=== PATIENT | female | born 1985 | race Caucasian/White ===

== ENCOUNTER → 2019-04-24 13:52 | Outpatient (CLI) | payer OTHER, SELFPAY ==
[2017-08-11 07:36] VITALS: BMI 30.4
[2019-04-27 15:37] LABS: HPV HC, High Risk Negative (Negative)
== END ==
PROVIDERS: Visit Provider Obstetrics & Gynecology
DX: Z12.4 Encounter for screening for malignant neoplasm of cervix (principal)
CPT/HCPCS: 87624; 88175; G0145

== ENCOUNTER → 2020-07-26 07:59 | Outpatient (CLI) | payer OTHER, SELFPAY ==
[2020-07-26 07:15] VITALS: BMI 26.6
[2020-07-26 12:22] LABS: Vitamin D,25 Hydroxy 35.8 ng/mL
[2020-07-26 12:30] LABS: Ferritin 4 ng/mL (8-252); Iron 41 ug/dL (50-170); Iron Binding Capacity,Total 428 ug/dL (250-450)
[2020-07-26 13:06] LABS: Thyroid Stim Hormone (TSH) 1.23 uIU/mL (0.358-3.74)
[2020-07-28 14:56] LABS: Transferrin 354 mg/dL (192-364)
== END ==
PROVIDERS: PCP Internal Medicine; Visit Provider Nurse Practitioner Family
DX: Z00.00 Encounter for general adult medical examination without abnormal findings (principal); D50.9 Iron deficiency anemia, unspecified; E56.9 Vitamin deficiency, unspecified; Z13.29 Encounter for screening for other suspected endocrine disorder
CPT/HCPCS: 36415; 82306; 82728; 83540; 83550; 84443; 84466

== ENCOUNTER 2020-09-26 09:27 | Outpatient (RCR) | payer OTHER, SELFPAY ==
[2020-07-26 07:15] VITALS: BMI 26.6
== END 2020-10-07 23:59 ==
LOC: EMPH 09:27
PROVIDERS: PCP Internal Medicine; Visit Provider Family Medicine Geriatric Medicine
DX: Z03.818 Encounter for observation for suspected exposure to other biological agents ruled out (principal)
CPT/HCPCS: 87426

== ENCOUNTER 2020-11-02 08:55 | Outpatient (RCR) | payer OTHER, SELFPAY ==
[2020-07-26 07:15] VITALS: BMI 26.6
== END 2020-11-07 23:59 ==
LOC: EMPH 08:55
PROVIDERS: PCP Internal Medicine; Referring Provider Family Medicine Geriatric Medicine; Visit Provider Family Medicine Geriatric Medicine
DX: Z03.818 Encounter for observation for suspected exposure to other biological agents ruled out (principal)

== ENCOUNTER 2020-12-17 08:29 | Outpatient (RCR) | payer OTHER, SELFPAY ==
[2020-07-26 07:15] VITALS: BMI 26.6
== END 2021-01-05 23:59 ==
LOC: EMPH 08:29
PROVIDERS: PCP Internal Medicine; Referring Provider Family Medicine Geriatric Medicine; Visit Provider Family Medicine Geriatric Medicine
DX: Z03.818 Encounter for observation for suspected exposure to other biological agents ruled out (principal)
CPT/HCPCS: 87426

== ENCOUNTER 2021-01-27 16:56 | Outpatient (RCR) | payer OTHER, SELFPAY ==
[2020-07-26 07:15] VITALS: BMI 26.6
== END 2021-02-05 23:59 ==
LOC: EMPH 16:56
PROVIDERS: PCP Internal Medicine; Referring Provider Family Medicine Geriatric Medicine; Visit Provider Family Medicine Geriatric Medicine
DX: Z03.818 Encounter for observation for suspected exposure to other biological agents ruled out (principal)
CPT/HCPCS: 87426

== ENCOUNTER 2021-06-27 12:59 | Outpatient (RCR) | payer OTHER, SELFPAY ==
[2020-07-26 07:15] VITALS: BMI 26.6
== END 2021-07-08 23:59 ==
LOC: EMPH 12:59
PROVIDERS: PCP Internal Medicine; Referring Provider Family Medicine Geriatric Medicine; Visit Provider Family Medicine Geriatric Medicine
DX: Z03.818 Encounter for observation for suspected exposure to other biological agents ruled out (principal)
CPT/HCPCS: 87426

== ENCOUNTER 2022-01-27 14:29 | Outpatient (CLI) | payer OTHER, SELFPAY ==
[2022-02-02 15:58] LABS: HPV APTIMA, High Risk Negative (Negative)
== END 2022-01-27 23:59 | disposition home or self-care (01) ==
LOC: LABSPEC 14:34
PROVIDERS: PCP Internal Medicine; Visit Provider Obstetrics & Gynecology
DX: Z12.4 Encounter for screening for malignant neoplasm of cervix (principal)
CPT/HCPCS: 87624; 88175; G0145

== ENCOUNTER → 2023-08-30 | Outpatient (CLI) | payer OTHER, SELFPAY ==
[2023-08-30 17:18] LABS: Ferritin 4 ng/mL (8-252); Iron 10 ug/dL (50-170); Iron Binding Capacity,Total 432 ug/dL (250-450)
[2023-09-01 18:07] LABS: Deamidated Gliadin IgA 9 units (0-19); Deamidated Gliadin IgG 3 units (0-19); Endomysial Antibody IgA Negative (Negative); Immunoglobulin A 272 mg/dL (87-352); t-Transglutaminase IgA <2 U/mL (0-3)
== END | disposition home or self-care (01) ==
PROVIDERS: PCP Internal Medicine; Referring Provider Internal Medicine; Visit Provider Internal Medicine
DX: D64.9 Anemia, unspecified (principal); R19.7 Diarrhea, unspecified
CPT/HCPCS: 36415; 82728; 82784; 83516; 83540; 83550; 86255

== ENCOUNTER → 2023-09-07 | Outpatient (CLI) | payer OTHER, SELFPAY | END | disposition home or self-care (01) | LOC: BIMLAB 12:18 | PROVIDERS: PCP Internal Medicine; Visit Provider Internal Medicine | DX: D64.9 Anemia, unspecified (principal) | CPT/HCPCS: 82274 ==

== ENCOUNTER → 2023-12-06 | Outpatient (CLI) | payer OTHER, SELFPAY ==
--- NOTE | 2023-12-06 08:59 | US_ITS ---
STUDY: ULTRASOUND BREAST - RIGHT REASON FOR EXAM: Female, 38 years old. Right breast pain. TECHNIQUE: Axial and longitudinal images of the RIGHT breast were performed with a high resolution ultrasound transducer. # OF IMAGES: 77 COMPARISON: Comparison is made with prior mammogram done earlier in the day. FINDINGS: RIGHT Breast: The lateral aspect of the right breast was examined with ultrasound. 4 benign-appearing lymph nodes are seen. The largest is in the axilla and measures 1.8 cm x 2.4 cm x 1.2 cm. This also evidence of a dilated retroareolar ducts. US/Breast Limited Unilateral IMPRESSION: Several lymph nodes are seen as described. Dilated retroareolar ducts. ASSESSMENT CATEGORY: BIRADS Category 2: Benign. A letter regarding these results will be sent to the patient by the facility within 30 days. Electronically Signed: Jordan Ellison MD at 11:18 EST ,
--- NOTE | 2023-12-06 08:59 | BI_ITS ---
MAMMOGRAPHY - BILATERAL DIAGNOSTIC REASON FOR EXAM: Female, 38 years old. Occasional upper outer quadrant breast pain. Prior resection of a fibroadenoma in the right breast. PERTINENT HISTORY: Personal history of breast cancer. TECHNIQUE: Digital bilateral breast lg (3D mammographic acquisition) in the CC and MLO projections. 2-D mediolateral oblique (MLO) and craniocaudad (CC) views of both breasts were obtained. CAD: Full Field Digital Mammography with Computer Added Detection was performed. COMPARISON: Comparison is made with prior study March 25, 2016. FINDINGS: Breast Composition: The breasts are heterogeneously dense, which may obscure small masses. The previously seen 1.8 cm well-defined nodule in the central lateral aspect of the right breast has been excised. I suspect a 1.5 cm fat-containing nodule at the operative site suggests a possible postoperative fat necrosis. No other significant abnormalities are identified. BI/DIAG MAMM W/CAD, BILAT IMPRESSION: Status post resection of the fibroadenoma in the right breast as described. Findings suggestive of a small fat-containing nodule at the operative site suggestive of possible fat necrosis. One year follow-up recommended. (A) ASSESSMENT CATEGORY: BIRADS Category 2: Benign. A letter regarding these results will be sent to the patient by the facility within 30 days. Approximately 10% of breast cancers are not detected by mammography. A normal mammogram should not delay biopsy of a clinically suspicious abnormality. Electronically Signed: Jordan Ellison MD at 11:15 EST ,
== END | disposition home or self-care (01) ==
LOC: OPBI 08:59
PROVIDERS: PCP Internal Medicine; Referring Provider Internal Medicine; Visit Provider Internal Medicine
DX: N64.4 Mastodynia (principal)
CPT/HCPCS: 76642; 77062; 77066; G0279

== ENCOUNTER → 2024-05-24 | Outpatient (CLI) | payer OTHER, SELFPAY ==
--- NOTE | 2024-05-24 15:34 | US_ITS ---
STUDY: ULTRASOUND OF THE FEMALE PELVIS - COMPLETE REASON FOR EXAM: Female, 38 years old. metorrhagia LMP: 05/20/2024 TECHNIQUE: Transabdominal and Transvaginal TECHNICAL QUALITY: Adequate. COMPARISON: None. FINDINGS: The uterus is anteverted and is in a midline position. The uterus measures 12.3 x 7.1 x 5.6 cm. 0.5 cm isoechoic mass within the anterior aspect of the cervix likely consistent with a submucosal fibroid. The endometrium measures 4 mm in thickness, and is hyperechoic. There is no demonstrated endometrial mass. 1 cm isoechoic mass of the anterior body the uterus consistent with an intramural fibroid. 3.5 cm round isoechoic mass of the inferior left side of the uterus consistent with a subserosal fibroid. I.U.D. - The patient does not have an I.U.D. The right ovary is visualized. The right ovary measures 3.0 x 2.1 x 2.0 cm. There is no right ovarian cyst or ovarian mass. There is no visualized right adnexal mass or complex lesion. There is normal arterial and normal venous vascularity. The left ovary is visualized. The left ovary measures 2.4 x 2.0 x 1.1 cm. There is no left ovarian cyst or ovarian mass. There is no visualized left adnexal mass or complex lesion. There is normal arterial and normal venous vascularity. There is no fluid in the cul-de-sac. The pre void volume of the bladder was 286 ml. The post void volume of the bladder was ml. Polycystic ovary disease: No. US/Pelvic w/ Transvaginal IMPRESSION: Enlarged fibroid uterus. Electronically Signed: Vasu Olivares MD at 17:33 EDT ,
== END | disposition home or self-care (01) ==
LOC: US 15:34
PROVIDERS: PCP Internal Medicine; Referring Provider Nurse Practitioner Family; Visit Provider Nurse Practitioner Family
DX: N92.1 Excessive and frequent menstruation with irregular cycle (principal)
CPT/HCPCS: 76830; 76856

== ENCOUNTER → 2024-06-06 | Outpatient (CLI) | payer OTHER, SELFPAY ==
[2024-06-06 10:43] LABS: Absolute Lymphocyte Count 1.31 X10^3/uL (0.83-4.51); Absolute Neutrophil Count 6.1 X10^3/uL (2.0-7.7); Basophil# 0.06 X10^3/uL; Basophil% 0.7 % (0-1); Eosinophil# 0.28 X10^3/uL; Eosinophils% 3.2 % (0-5); Hematocrit 35.8 % (37-47); Hemoglobin 10.8 g/dL (12.0-15.0); Lymphocyte # 1.31 X10^3/ul (0.83-4.51); Lymphocyte % 15.1 % (19-41); Mean Corp Hgb Conc 30.2 g/dL (32-36); Mean Corpuscular Hgb 22.7 pg (27.0-32.0); Mean Corpuscular Volume 75.4 fL (81-99); Mean Platelet Vol. 10.9 fl (6.2-12.0); Monocyte# 0.76 X10^3/uL; Monocyte% 8.8 % (0-10); NRBC Flagged by Analyzer 0 % (0-5); Neutrophil # 6.11 X10^3/uL (2.7-7.7); Neutrophil % 70.6 % (47-70); Platelet Count 343 K/mm3 (150-450); RBC Distribution Width CV 17.2 % (11.6-14.6); RBC Distribution Width SD 46.4 fl (35.1-43.9); Red Blood Count 4.75 M/mm3 (4.2-5.4); White Blood Count 8.7 K/mm3 (4.4-11.0)
[2024-06-06 10:50] LABS: Erythrocyte Sedimentation Rate 8 mm/hr (0-30)
[2024-06-06 11:09] LABS: Vitamin B12 505 pg/mL (211-911)
[2024-06-06 11:14] LABS: AST(SGOT) 12 U/L (15-37); Alanine Aminotransfer ALT/SGPT 15 U/L (13-56); Alkaline Phosphatase 46 U/L (45-117); Anion Gap 7 (5-15); BUN 8 mg/dL (7-18); BUN/Creat Ratio 12.5 RATIO (10-20); Calcium,Total 8.7 mg/dL (8.5-10.1); Chloride 105 mmol/L (98-107); Cholesterol 153 mg/dL (200); Creatinine, Serum 0.64 mg/dL (0.55-1.02); EST Glomerular Filtration Rate 111 mL/min (>60); Est Glom Filt Rate - Afr Amer 134 mL/min (>60); Globulin 3.9 g/dL (2.2-4.2); Glucose 85 mg/dL (74-106); High Density Lipoprotein 48 mg/dL; Potassium 3.6 mmol/L (3.5-5.1); Protein, Total 7.9 g/dL (6.4-8.2); Sodium Level 137 mmol/L (136-145); T4 Free Direct 0.88 ng/dL (0.76-1.46); Triglycerides 67 mg/dL; Very Low Density Lipoprotein 13 mg/dL (5-40)
[2024-06-06 12:02] LABS: CRP < 2.90 mg/L (0.0-3.0); Ferritin 4 ng/mL (8-252); Iron 22 ug/dL (50-170); Iron Binding Capacity,Total 425 ug/dL (250-450)
[2024-06-07 17:07] LABS: Endomysial Antibody IgA Negative (Negative); Immunoglobulin A 261 mg/dL (87-352); t-Transglutaminase IgA <2 U/mL (0-3)
[2024-06-10 11:09] LABS: Beef <0.10 kU/L (Class 0); Chocolate <0.10 kU/L (Class 0); Codfish <0.10 kU/L (Class 0); Corn <0.10 kU/L (Class 0); Egg, Whole <0.10 kU/L (Class 0); Milk (Cow) <0.10 kU/L (Class 0); Mussels <0.10 kU/L (Class 0); Peanut <0.10 kU/L (Class 0); Pork <0.10 kU/L (Class 0); Salmon <0.10 kU/L (Class 0); Shrimp <0.10 kU/L (Class 0); Soybean <0.10 kU/L (Class 0); Tuna <0.10 kU/L (Class 0); Wheat <0.10 kU/L (Class 0)
== END | disposition home or self-care (01) ==
LOC: LAB 09:09
PROVIDERS: Nurse Practitioner Family; PCP Internal Medicine; Referring Provider Student in an Organized Health Care Education/Training Program; Visit Provider Student in an Organized Health Care Education/Training Program
DX: Z00.00 Encounter for general adult medical examination without abnormal findings (principal); Z13.220 Encounter for screening for lipoid disorders; Z13.29 Encounter for screening for other suspected endocrine disorder; D50.9 Iron deficiency anemia, unspecified; N92.1 Excessive and frequent menstruation with irregular cycle
CPT/HCPCS: 36415; 80053; 80061; 82306; 82607; 82728; 82746; 82784; 83516; 83540; 83550; 84439; 84443; 85025; 85652; 86003; 86005; 86140; 86255

== ENCOUNTER 2024-06-30 05:58 | Day surgery (SDC) | payer OTHER, SELFPAY ==
[2024-06-30] VITALS (8 sets, daily range): BP systolic 86–118; BP diastolic 58–73; PULSE 66–75; RESP 16; TEMP 36.6–37.1; O2SAT 99–100; BMI 28.0
[2024-06-30 06:20] LABS: Internal QC Validated? YES +Cl - CLEAR BKGD; Pregnancy, Urine Negative Negative
[2024-06-30] MEDS: Lactated Ringers 1,000 ML 15 ML IV (06:28)
--- NOTE | 2024-06-30 06:42 | PCM.HP.BLA ---
History and Physical Date of Admission: 06/30/24 Chief Complaint: Anemia Details: MINDY SCOTT, is a 38 F who presents to the office today for establishment with [facility]. She has a long history of having iron deficient anemia. 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 Her 62 yo mother was recently diagnosed with colon cancer and underwent partial colectomy and chemotherapy. She is concerned about developing colon cancer with her family history. She mentions she has always had right lower quadrant pain and feeling of incomplete evacuation with bowel movements. She has a bm at least once a day but feels it is incomplete. She has also noticed having some urgency after eating certain foods like sauce or foods with tomatoes. She has never been tested for food allergies. She has alot of gas that she will massage out her abdomen to relive. She feels fatigued and has brain fog. She denies alarm symptoms like weight loss, fever, or blood in her stool. She denies diarrhea, heartburn, and n/v. ROS Const Constitutional: Positive for fatigue and weight change; No fever(s) ENT ENT: No difficulty swallowing Gastro GI: Positive for abdominal pain, bloating, heartburn and excessive flatus; No belching, change in bowel habits, change in stool character, coffee ground emesis, constipation, cramping, diarrhea, difficulty swallowing, feeling full early, incontinent of stools, Vomiting blood/hematemesis, Blood in stool, loose stools, Black,tarry stools, nausea/dyspepsia, pain with swallowing, vomiting or other Musc Musculoskeletal: No joint pain Skin Skin: No yellowing of the eye or itchy eyes Psych Psychiatric: No anxiety and No depression Endo Endocrine: Positive for fatigue and weight change Aller/Imm Allergy/Immunologic: No itchy eyes Teja/Lymp Hematologic/Lymphatic: No easy bleeding or easy bruising Exam Const General: cooperative and comfortable Nutritional Appearance: average body habitus and well nourished HENKS Head: normal to inspection Ears: hearing grossly normal bilaterally Nose: external nose normal Face and sinus: normal facial exam Mouth: oral mucosae normal Throat: posterior oropharynx normal Eyes General: appearance normal, both eyes and all related structures Neck Neck: normal visual inspection Chest Chest palpation & inspection: normal inspection of the chest and normal palpation of entire chest wall Resp Effort & Inspection: normal respiratory effort Auscultation: Bilateral: Clear to Auscultation Cardio Palpation: normal PMI Rate: regular rate Rhythm: regular rhythm GI Inspection: normal to inspection Auscultation: normal bowel sounds Percussion: normal to percussion Palpation: no hepatosplenomegaly Skin General: no rashes or lesions noted Neuro General: patient alert Extrem General: normal to inspection Psych Affect: normal affect Assessment and Plan Assessment and Plan (1) Anemia: Status: Chronic Qualifiers: Anemia type: iron deficiency Iron deficiency anemia type: unspecified iron deficiency Qualified Code(s): D50.9 - Iron deficiency anemia, unspecified Plan: Patient is here today for establishment with [facility]. She has a hx of anemia, abdominal pain, and family hx of colon cancer -Because of family history of colon cancer she wishes to have a colonoscopy. We will schedule her for this. -Ordered iron studies to assess for anemia -Ordered labs for food allergens, celiac, and inflammatory markers -Recommended increasing daily fiber with supplement to help with incomplete stool evacuation -Recommended simethicone for episodes of gas Orders: Orders Ferritin Today D50.9 - Iron deficiency anemia, unspecified Iron Binding Capacity,Total Today D50.9 - Iron deficiency anemia, unspecified Iron Today D50.9 - Iron deficiency anemia, unspecified Celiac Disease Profile Today D50.9 - Iron deficiency anemia, unspecified CRP Today D50.9 - Iron deficiency anemia, unspecified Erythrocyte Sed Rate Today D50.9 - Iron deficiency anemia, unspecified Allergen, Food Profile 14 Today D50.9 - Iron deficiency anemia, unspecified Folates, (Folic Acid) Today D50.9 - Iron deficiency anemia, unspecified Vitamin B12 Today D50.9 - Iron deficiency anemia, unspecified Coding Level of Care Code New Pt Off vis,new,level 2 Patient Type New History Expanded Problem Focused Exam Expanded Problem Focused Medical Decision Making Straight Forward Diagnoses Iron deficiency anemia, unspecified iron deficiency anemia type D50.9 Anemia type: iron deficiency Iron deficiency anemia type: unspecified iron deficiency I have examined the patient and the H&P has been reviewed. There are no clinical changes since date of exam.
--- NOTE | 2024-06-30 06:47 | PCM.PRE.AN2 ---
ASA Classification* ASA Classification ASA Classification: 2 Assessment & Plan Anesthesia* Anesthesia Assessment Anesthesia Assessment: Discussed sedation and/or anesthesia options, risks, benefits, and alternatives with patient/parents/legal guardian/POA. Questions invited. The patient/parents/legal guardian/POA seems to understand and agrees to proceed with anesthesia plan. Reviewed the physical assessment, medical history, allergy history and patient home medications list prior to surgery/procedure/anesthetic and documented any changes. Performed airway and anesthesia risk assessments. Anesthesia Type Anesthesia Type: MAC History Source History Obtained from:: Patient and Chart Anesthesia Focused Assessment* Temperature: 98.8 F Pulse Rate: 73 Blood Pressure: 112/68 Respiratory Rate: 16 Pulse Ox: 100 Airway Assessment Mouth opens: >3 cm Mallampati Score: II Teeth Condition: Intact Neck Range of motion (ROM): Full ROM Focused Labs Anesthesia Preop lab: CBC WBC 8.7 K/mm3 (4.4-11.0) 06/06/24 09:13 RBC 4.75 M/mm3 (4.2-5.4) 06/06/24 09:13 Hgb 10.8 g/dL (12.0-15.0) L 06/06/24 09:13 Hct 35.8 % (37-47) L 06/06/24 09:13 Plt Count 343 K/mm3 (150-450) 06/06/24 09:13 CHEMISTRY Potassium 3.6 mmol/L (3.5-5.1) 06/06/24 09:13 Sodium 137 mmol/L (136-145) 06/06/24 09:13 Phosphorus 3.5 mg/dL (2.5-4.9) 06/24/21 15:19 BUN 8 mg/dL (7-18) 06/06/24 09:13 Creatinine 0.64 mg/dL (0.55-1.02) 06/06/24 09:13 Glucose 85 mg/dL (74-106) 06/06/24 09:13 TSH 1.80 uIU/mL (0.358-3.74) 06/06/24 09:13 COAG Urine Test Negative Negative 06/30/24 06:05 Pre-Assessment Diagnosis/Proposed Procedure Planned Operative Procedure(s): COLONOSCOPY- Anesthesia History Anesthesia History - acute care surgeon: Anesthesia History - acute care surgeon Hx Hospitalization No 06/28/24 08:29 Any Problems With Anesthesia No 06/28/24 08:29 Cholinesterase deficiency No 06/28/24 08:29 You/Your Family Experience No 06/28/24 08:29 fever (hyperthermia) with Relationship Recent Exposure to Contagious No 06/30/24 06:22 Disease Does patient have nerve No 06/28/24 08:29 stimulator Patient instructed to have device shut off --Does patient have Pacemaker No 06/30/24 06:22 or ICD? When Was Last Pacemaker Check QUESTION #4 FULL TEXT: You/Your Family Experience fever (hyperthermia) with Anesthesia Last Oral Intake Last Oral intake: Last Oral Intake NPO since 03:00 06/30/24 06:22 Meds taken in AM with sips of No 06/30/24 06:22 water? Meds patient instructed to take am of surgery PONV PONV - acute care surgeon: PONV - acute care surgeon Female Yes 06/28/24 08:29 HX of Motion Sickness No 06/28/24 08:29 HX of N/V After Surgery No 06/28/24 08:29 Non-Smoker Yes 06/28/24 08:29 Duration of Surgery greater No 06/28/24 08:29 than 60 minutes Number of Risk Factors 2 06/28/24 08:29 PONV Score Moderate Risk 06/28/24 08:29 Height & Weight Height & Weight: Anesthesia: Height & Weight Height 5 ft 4 in 06/30/24 06:22 Weight: 74 kg 06/30/24 06:22 Body Mass Index (BMI) 28.0 06/30/24 06:22 Respiratory Assessment Respiratory Assessment - acute care surgeon: Respiratory Tract Infection Hx - acute care surgeon Hx Respiratory Tract Infection No 06/28/24 08:29 STOP Sleep Apnea STOP Sleep Apnea - acute care surgeon: STOP Sleep Apnea - acute care surgeon Hx Hypertension No 06/28/24 08:29 Hx Sleep Apnea No 06/28/24 08:29 CPAP BIPAP Do you snore loudly (louder No 06/28/24 08:29 than talking or can be heard Do you often feel tired/ No 06/28/24 08:29 fatigued/ sleepy during daytime? Has anyone observed you stop No 06/28/24 08:29 breathing during sleep? STOP Results Negative 06/28/24 08:29 QUESTION #5 FULL TEXT : Do you snore loudly (louder than talking or can be heard through closed doors)? 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 Specify any problems Hx of Preganancy in last 3 No 06/28/24 08:29 Months Nurse Filling Out Transfusion VCHRISTIN 06/28/24 08:29 & Questions: Date: 06/28/24 06/28/24 08:29 Time: 08:30 06/28/24 08:29 Patient unable to answer at this time (ie. confused, unrespo /Reproduction History /Reproductive History - acute care surgeon: /Reproductive Hx- acute care surgeon Hx Now No 06/28/24 08:29 Gestational Age (in weeks): EDC: Hx Hx Para Hx Section SAB No 06/28/24 08:29 Active Medications Active Medications: Current Medications Generic Name Dose Route Start Last Admin Trade Name Freq PRN Reason Stop Dose Admin Lactated Ringer's 1,000 mls @ 15 mls/hr 06/30/24 06:15 06/30/24 06:28 IV 15 mls/hr .Q48H SAYDA Administration PFSH Medical History Wears contact lenses Wears glasses Alcohol use Arthritis Non-smoker Health care maintenance Breast pain, right Diarrhea Anemia Breast lump Home Medications ?Medication ?Instructions ?Recorded ?Last Taken ?Type multivitamin 1 tab PO DAILY 06/24/21 06/25/24 History ferrous sulfate 325 mg (65 mg 325 mg PO DAILY #30 tabs 06/08/24 06/26/24 Rx iron) tablet (FeroSul) Allergy/AdvReac Type Severity Reaction Status Date / Time venom-honey bee Allergy Intermediate Swelling Verified 06/28/24 08:23 Family History Mother Anemia Colon cancer Grandmother Hypertension Anemia Grandfather Parkinsons disease Surgical History History of lumpectomy Social History number of children: 3 current occupational status: employed current occupation: [employer] Smoking Status: Never smoker alcohol intake: current alcohol intake frequency: a few times a week substance use type: does not use what type of physical activity do you participate in: walking frequency: daily seatbelt use: always do you feel safe at home: Yes Review of Systems (Anesthesia) ROS Narrative System reviewed and no additional complaints, except as documented.
--- NOTE | 2024-06-30 07:00 | COLBX_PTH ---
PATIENT: MINDY SCOTT LOC: EN U#:[id number] AGE/SX: 38/F ROOM: RE06/30/[address]: Dr. Jordan Painting DO : 1985 BED: DIS: 06/30/2024 SPEC #: [id number] RECD: 06/30/24 08:47 STATUS: YU REILLY #: [id number] TRAE: 06/30/24 07:[address]: Jordan Painting DEPT: SURGICAL PATHOLOGY RECD BY: Maulik Dash ENTERED: 06/30/24 09:31 SP TYPE: COLON BX JERE DR: Dr. Óscar Mobley MD Tissues: A - Ascending colon B - COLON BIOPSY C - Sigmoid colon biopsy Procedures: Surgery Specimen Level IV HEADER OPERATION: Colonoscopy, polypectomy PRE-OP DIAGNOSIS: Anemia TISSUE SUBMITTED: A- Ascending colon polyp, B- Appendicle orifice polyp, C- Sigmoid colon polyp MICROSCOPIC DIAGNOSIS A. Ascending colon polyp, biopsy: Fragments of hyperplastic polyp. See comment. B. Polyp at appendiceal orifice, biopsy: Fragments of hyperplastic polyp. C. Sigmoid colon polyp, biopsy: Inflammatory polyp with mucosal denudation. KALINA/ 07/03/2024 COMMENT A. The specimen contains fragments of mature adipose tissue with benign perilymphoid tissue. Clinical correlation is suggested. MICROSCOPIC DESCRIPTION Slides are reviewed. GROSS DESCRIPTION A. Received in fixative is one container labeled with the patient's name and designated Ascending colon polyp. The specimen consists of multiple irregular fragments of light bush soft tissue that in aggregate measure 2.0 x 0.7 x 0.2 cm. The specimen is totally submitted in one cassette. B. Received in fixative is one container labeled with the patient's name and designated Appendicle orifice polyp. The specimen consists of multiple irregular fragments of light bush soft tissue that in aggregate measure 1.0 x 0.2 x 0.1 cm. The specimen is totally submitted in one cassette. C. Received in fixative is one container labeled with the patient's name and designated Sigmoid colon polyp. The specimen consists of a bush-pink polyp measuring 0.4 x 0.4 x 0.2cm. The entire specimen is submitted in one cassette. 06/30/2024 TC:5 CPT:29271m4
--- NOTE | 2024-06-30 07:32 | OP.COLON_ITS ---
Patient Name: Campbell Cerda Procedure Date: 06/30/2024 6:50 AM Date of : 1985 Age: 38 Procedure: Colonoscopy Indications: Screening in patient at increased risk: Family history of 1st-degree relative with colorectal cancer before age 60 years Providers: Jordan Painting DO Medicines: Monitored Anesthesia Care Patient Profile: This is a 38 year old female. Refer to note in patient chart for documentation of history and physical. Last Colonoscopy: none. The patient's first colonoscopy is today. Complications: No immediate complications. Procedure: Pre-Anesthesia Assessment: - Prior to the procedure, a History and Physical was performed, and patient medications and allergies were reviewed. The patient is competent. The risks and benefits of the procedure and the sedation options and risks were discussed with the patient. All questions were answered and informed consent was obtained. Patient identification and proposed procedure were verified by the physician in the pre-procedure area. Mental Status Examination: alert and oriented. Airway Examination: normal oropharyngeal airway and neck mobility. Respiratory Examination: clear to auscultation. CV Examination: normal. Prophylactic Antibiotics: The patient does not require prophylactic antibiotics. Prior Anticoagulants: The patient has taken no anticoagulant or antiplatelet agents. ASA Grade Assessment: II - A patient with mild systemic disease. After reviewing the risks and benefits, the patient was deemed in satisfactory condition to undergo the procedure. The anesthesia plan was to use monitored anesthesia care (MAC). Immediately prior to administration of medications, the patient was re-assessed for adequacy to receive sedatives. The heart rate, respiratory rate, oxygen saturations, blood pressure, adequacy of pulmonary ventilation, and response to care were monitored throughout the procedure. The physical status of the patient was re-assessed after the procedure. After I obtained informed consent, the scope was passed under direct vision. Throughout the procedure, the patient's blood pressure, pulse, and oxygen saturations were monitored continuously. The Colonoscope was introduced through the anus and advanced to the cecum, identified by the appendiceal orifice, ileocecal valve and palpation. The colonoscopy was performed without difficulty. The patient tolerated the procedure well. The quality of the bowel preparation was adequate. The ileocecal valve, appendiceal orifice, and rectum were photographed. Scope In: 7:03:03 AM Scope Withdrawal Time 0 hours 13 minutes 20 seconds Scope Out: 7:24:26 AM Total Procedure Duration Time 0 hours 21 minutes 23 seconds Findings: The perianal and digital rectal examinations were normal. Three pedunculated and sessile polyps were found in the sigmoid colon, ascending colon and appendiceal orifice. The polyps were 1 to 2 mm in size. These polyps were removed with a hot snare. Resection and retrieval were complete. Verification of patient identification for the specimen was done. Estimated blood loss was minimal. The exam was otherwise without abnormality on direct and retroflexion views. Impression: - Three 1 to 2 mm polyps in the sigmoid colon, in the ascending colon and at the appendiceal orifice, removed with a hot snare. Resected and retrieved. - The examination was otherwise normal on direct and retroflexion views. Recommendation: - Discharge patient to home. - Resume previous diet. - Continue present medications. - Await pathology results. - Repeat colonoscopy in 3 years for surveillance. Procedure Code(s): --- Professional --- 86792, Colonoscopy, flexible; with removal of tumor(s), polyp(s), or other lesion(s) by snare technique CPT copyright 2021 [employer]. All rights reserved. The codes documented in this report are preliminary and upon sport internship review may be revised to meet current compliance requirements. Jordan Painting DO 06/30/2024 7:31:58 AM This report has been signed electronically. Number of Addenda: 0 Note Initiated On: 06/30/2024 6:50 AM
--- NOTE | 2024-06-30 07:32 | OP.CCLET_ITS ---
06/30/2024 Óscar Mobley MD [address] [place] [address] [place] [address] Re : Colonoscopy procedure for Campbell Cerda Dear Dr. Mobley This procedure was performed on Sunday, June 30, 2024. My impressions and recommendations are as follows: Impressions : - Three 1 to 2 mm polyps in the sigmoid colon, in the ascending colon and at the appendiceal orifice, removed with a hot snare. Resected and retrieved. - The examination was otherwise normal on direct and retroflexion views. Recommendations : - Discharge patient to home. - Resume previous diet. - Continue present medications. - Await pathology results. - Repeat colonoscopy in 3 years for surveillance. My findings are described in the full procedure note, which is enclosed. If I can be of further assistance, please feel free to contact me at . Sincerely, Jordan Painting, 06/30/2024 7:31:58 AM This report has been signed electronically.
--- NOTE | 2024-06-30 07:32 | PCM.POST.ANE ---
Anesthesia: Postop Eval I Current Vital Signs Temperature: 97.9 F Pulse Rate: 74 Blood Pressure: 95/67 Respiratory Rate: 16 Pulse Ox: 99 Oxygen Delivery Method: Room Air Assessment Airway patent: Yes Spontaneous unlabored respirations: Yes Mental status: Asleep nausea: No Vomiting: No Anesthesia Complication: No Fluid Hydration Crystalloid volume administer (ml): 800 Total IV fluid infused: 800 Progress Note Anesthesia document: Postop Eval 1 completed: Yes
--- NOTE | 2024-06-30 07:41 | PCM.POSTANE2 ---
Anesthesia Postop Eval I Sum Postop Eval Completion status Anesthesia document: Postop Eval 1 completed: Yes Anesthesia Postop Eval I Summary Anesthesia Postop Eval I Summary: Anesthesia Postop Eval I: Assessment Summary Airway patent Yes 06/30/24 07:33 [email or web address] Spontaneous unlabored Yes 06/30/24 07:33 [email or web address] respirations Mental status Asleep 06/30/24 07:33 [email or web address] nausea No 06/30/24 07:33 [email or web address] Vomiting No 06/30/24 07:33 [email or web address] Anesthesia Postop Eval I: Fluid Summary Crystalloid volume administer 800 06/30/24 07:33 [email or web address] (ml) Colloids volume administered ( ml) Blood Product volume administered (ml) Total IV fluid infused 800 06/30/24 07:33 [email or web address] Anesthesia Postop Eval I: Summary Notes Anesthesia Complication No 06/30/24 07:33 [email or web address] Anesthesia Complication Comment: Post-operative progress note Anesthesia: Postop Eval II Evaluation Mental status: Awake Pain Level: 0 nausea: No Vomiting: No
== END 2024-06-30 08:01 | disposition home or self-care (01) ==
LOC: EN 05:58 → AC 05:59
PROVIDERS: Anesthesiology; PCP Internal Medicine; Referring Provider Internal Medicine Gastroenterology; Visit Provider Internal Medicine Gastroenterology
PROC: 0DJD8ZZ Inspection of Lower Intestinal Tract, Via Natural or Artificial Opening Endoscopic (ICD-10-PCS; CPT 45378; principal; 2024-06-30 06:55)
DX: D50.9 Iron deficiency anemia, unspecified (principal); K63.5 Polyp of colon; Z80.0 Family history of malignant neoplasm of digestive organs
CPT/HCPCS: 45385; 81025; 88305; J7120; J2405

== ENCOUNTER → 2024-12-04 | Outpatient (CLI) | payer OTHER, SELFPAY ==
[2024-12-04 12:48] LABS: Absolute Lymphocyte Count 1.66 X10^3/uL (0.83-4.51); Absolute Neutrophil Count 5.2 X10^3/uL (2.0-7.7); Basophil# 0.07 X10^3/uL; Basophil% 0.9 % (0-1); Eosinophil# 0.21 X10^3/uL; Eosinophils% 2.6 % (0-5); Hematocrit 39.4 % (37-47); Hemoglobin 12.8 g/dL (12.0-15.0); Lymphocyte # 1.66 X10^3/ul (0.83-4.51); Lymphocyte % 20.9 % (19-41); Mean Corp Hgb Conc 32.5 g/dL (32-36); Mean Corpuscular Hgb 27.7 pg (27.0-32.0); Mean Corpuscular Volume 85.3 fL (81-99); Mean Platelet Vol. 10.5 fl (6.2-12.0); Monocyte# 0.76 X10^3/uL; Monocyte% 9.5 % (0-10); NRBC Flagged by Analyzer 0 % (0-5); Neutrophil # 5.24 X10^3/uL (2.7-7.7); Neutrophil % 65.8 % (47-70); Platelet Count 300 K/mm3 (150-450); RBC Distribution Width CV 13.8 % (11.6-14.6); Red Blood Count 4.62 M/mm3 (4.2-5.4)
[2024-12-04 13:16] LABS: Vitamin B12 631 pg/mL (211-911)
[2024-12-04 14:00] LABS: Ferritin 6 ng/mL (8-252)
== END | disposition home or self-care (01) ==
LOC: LAB 12:08
PROVIDERS: PCP Internal Medicine; Referring Provider Nurse Practitioner Family; Visit Provider Nurse Practitioner Family
DX: D50.9 Iron deficiency anemia, unspecified (principal)
CPT/HCPCS: 36415; 82607; 82728; 82746; 85025

== ENCOUNTER → 2024-12-08 | Outpatient (CLI) | payer OTHER, SELFPAY ==
--- NOTE | 2024-12-08 07:26 | US_ITS ---
PROCEDURE: ABDOMEN LIMITED REASON FOR EXAM: Right upper quadrant pain. COMPARISON: None FINDINGS: Liver: The liver measures 14.8 cm. The echogenicity is within normal limits. Gallbladder: Multiple gallstones are seen. The gallbladder wall measures 1.3 mm. Common bile duct: 5.1 mm . Pancreas: The pancreas echotexture is echogenic. Visualized portions of the right kidney are unremarkable. No right upper quadrant ascites. US/Abdomen Limited IMPRESSION: CHOLELITHIASIS. Reading Location: [place] [address]
== END | disposition home or self-care (01) ==
LOC: US 07:26
PROVIDERS: PCP Internal Medicine; Referring Provider Internal Medicine; Visit Provider Internal Medicine
DX: R10.11 Right upper quadrant pain (principal)
CPT/HCPCS: 76705

== ENCOUNTER 2025-01-22 08:19 | Day surgery (SDC) | payer OTHER, SELFPAY ==
--- NOTE | 2025-01-10 12:00 | EKG12_ITS ---
Test Reason : PREOP Blood Pressure : */* mmHG Vent. Rate : 80 BPM Atrial Rate : 80 BPM P-R Int : 156 ms QRS Dur : 86 ms QT Int : 374 ms P-R-T Axes : 61 46 29 degrees QTcB Int : 431 ms Normal sinus rhythm Normal ECG Confirmed by Wilian Salguero ([id number]), medical transcription editor MAXI HUERTA ([id number]) on 01/11/2025 6:58:08 AM Referred By: Eric Mistry Confirmed By: Wilian Salguero
[2025-01-10 12:57] LABS: Partial Thromboplast Time 27.1 Seconds (24.1-36.2)
[2025-01-10 13:58] LABS: International Normalized Ratio 1.1
[2025-01-22] VITALS (12 sets, daily range): BP systolic 109–126; BP diastolic 64–86; PULSE 68–83; RESP 14–20; TEMP 36.3–37; O2SAT 93–100; BMI 28.8
--- NOTE | 2025-01-22 | GALL_PTH ---
PATIENT: MINDY SCOTT LOC: [facility] U#:[id number] AGE/SX: 39/F ROOM: RE01/22/[address]: Dr. Eric Mistry MD : [id number] BED: DIS: 01/22/2025 SPEC #: [id number] RECD: 01/22/25 13:36 STATUS: YU CASIANORamya #: [id number] TRAE: 01/22/25 00:[address]: Eric Mistry DEPT: SURGICAL PATHOLOGY RECD BY: Maulik Dash ENTERED: 01/22/25 13:36 SP TYPE: GRACIELA OQUENDO DR: Dr. Óscar Mobley MD Tissues: Gallbladder, NOS Procedures: Surgery Specimen Level III HEADER OPERATION: Robotic cholecystectomy PRE-OP DIAGNOSIS: Cholelithiasis TISSUE SUBMITTED: A- Gallbladder MICROSCOPIC DIAGNOSIS A. Gallbladder, cholecystectomy: * Chronic cholecystitis with cholelithiasis. * MICROSCOPIC DESCRIPTION Slides are reviewed. GROSS DESCRIPTION A. Received in fixative is one container labeled with the patient's name and designated Gallbladder. The specimen consists of a gallbladder containing palpable gallstones with specimen measuring 9.5 x 2.5 x 2.5cm. The hepatic bed is inked in black. The specimen contains numerous multifaced green gall stones. The mucosal surface is red and hemorrhagic. Three labor relations representative sections are placed in one cassette. 01/22/2025 CPT:81935
--- NOTE | 2025-01-22 08:32 | PCM.HP.BLA ---
History and Physical Date of Admission: 01/22/25 Intake Vital Signs 12/04/2513:58 12/13/2513:28 Height 5 ft 4 in 5 ft 4 in Weight: 175 lb 174 lb 5 oz BMI 30.0 29.9 BP 128/72 H 111/74 Blood Pressure Location Lt brachial Rt brachial Position Sitting Sitting Respiration 17 18 Pulse 89 63 Pulse Source Monitor Monitor Temp 97.9 F 97.6 F L Temp Source Temporal Temporal Pulse Oximetry (%) 99 99 Oxygen Delivery Method room air room air Intake Visit Reasons: GALLBLADDER Chief Complaint: gallbladder Is patient in pain?: No Allergies venom-honey bee Allergy (Intermediate, Verified 12/13/24 14:29) Swelling Medications ?Medication ?Instructions ?Recorded ?Confirmed ?Type multivitamin 1 tab PO DAILY 06/24/21 12/13/24 History ferrous sulfate 325 mg (65 mg 325 mg PO DAILY #30 tabs 06/08/24 12/13/24 Rx iron) tablet (FeroSul) [facility] Medical History (Updated 12/13/24 @ 14:[address] Eric Mistry MD) Cholelithiasis RUQ abdominal pain Preventative health care Wears contact lenses Wears glasses Alcohol use Arthritis Non-smoker Health care maintenance Breast pain, right Diarrhea Anemia Breast lump Surgical History History of lumpectomy Family History Mother Anemia Colon cancerGrandmother Hypertension AnemiaGrandfather Parkinsons disease Social History number of children: 3 current occupational status: employed current occupation: [employer] Smoking Status: Never smoker alcohol intake: current alcohol intake frequency: a few times a week substance use type: does not use what type of physical activity do you participate in: walking frequency: daily seatbelt use: always do you feel safe at home: Yes HPI HPI HPI: Patient is a 39-year-old female here for cholelithiasis. She reports she does get periodic attacks which feel like sharp pain in the right upper quadrant that radiates to the back. That her last attack was 3 weeks ago. She denies nausea or vomiting or fevers or chills. ROS General General: Yes weight change; No appetite, fatigue, colon cancer, breast cancer or weakness HEENT HEENT: No difficulty swallowing, eye injury, eye surgery, swollen glands or hoarseness Endo Endocrine: No thyroid disease, diabetes mellitus, thyroid cancer, Hair loss, heat intolerance or cold intolerance Skin Skin: No rash or changing moles Musc Musculoskeletal: No back problems, arthritis, rheumatoid arthritis, gout or joint pain Cardio Cardiovascular: No murmur, pacemaker, heart disease, atrial fibrillation, high blood pressure, heart attack, heart stent, palpitations, shortness of breat with exertion or chest pain Psych Psychiatric: No depression, anxiety or hearing voices Gastro Gastrointestinal: Yes abdominal pain, No nausea or vomiting, No diarrhea, No constipation, No blood in stool, No acid reflux, No hemorrhoids, No ulcers, Yes gallbladder problem and No black,tarry stools Teja Hematologic: No blood thinners, No blood disorders, No bleeding, Yes anemia and No blood clots Neuro Neurologic: No numbness, No tingling and No weakness Exam Const General: cooperative Orientation: alert and oriented x3 HENMT Head: normal to inspection Neck Neck: normal visual inspection and full ROM Chest Chest palpation & inspection: normal inspection of the chest Resp Effort & Inspection: normal respiratory effort Auscultation: clear to auscultation bilaterally Cardio Rate: regular rate Rhythm: regular rhythm GI Inspection: non-distended Palpation: soft and nontender Skin General: no rashes or lesions noted Neuro General: patient alert and patient oriented x3 Extrem General: full ROM Psych Appearance: grossly normal Mental Status: mental status grossly normal Assessment and Plan Assessment and Plan (1) Cholelithiasis: Status: Acute Qualifiers: Cholelithiasis location: gallbladder Cholecystitis presence: without cholecystitis Biliary obstruction: without biliary obstruction Qualified Code(s): K80.20 - Calculus of gallbladder without cholecystitis without obstruction Plan: Patient is here due to cholelithiasis. She has been having right upper quadrant attacks which sound suspicious for biliary colic. The patient had an ultrasound which showed cholelithiasis. The patient has a lot of gallstones in her gallbladder. I discussed robotic assisted laparoscopic cholecystectomy. I discussed the procedure in detail with the patient. I discussed the risks, benefits, and alternatives of the procedure. I discussed the risks including but not limited to bleeding, infection, injury to surrounding organs such as the liver, bile duct, bowels. I did discuss the possibility of having to convert to an open procedure as well as the possibility that if any injuries occurred this may necessitate further surgery at a tertiary care center. Eric Mistry MD Pager: [employer] [address] [place] [address], [address] [place] [phone] Office: I have examined the patient and the H&P has been reviewed. There are no clinical changes since date of exam.
[2025-01-22] MEDS: INDOCYANINE GREEN 3.75 MG in Syringe 1.5 ML 999 MG IV (09:12)
[2025-01-22] MEDS: 0.9% Normal Saline (1000mL) 1,000 ML 15 ML IV (09:15)
[2025-01-22 09:17] LABS: Internal QC Validated? YES +Cl - CLEAR BKGD; Pregnancy, Urine Negative Negative; Record Kit Lot#,Urine Preg 899023
--- NOTE | 2025-01-22 09:46 | PCM.PRE.AN2 ---
ASA Classification* ASA Classification ASA Classification: 1 Assessment & Plan Anesthesia* Anesthesia Assessment Anesthesia Assessment: Discussed sedation and/or anesthesia options, risks, benefits, and alternatives with patient/parents/legal guardian/POA. Questions invited. The patient/parents/legal guardian/POA seems to understand and agrees to proceed with anesthesia plan. Reviewed the physical assessment, medical history, allergy history and patient home medications list prior to surgery/procedure/anesthetic and documented any changes. Performed airway and anesthesia risk assessments. Anesthesia Type Anesthesia Type: General History Source History Obtained from:: Patient and Chart Anesthesia Focused Assessment* Temperature: 97.8 F Pulse Rate: 68 Blood Pressure: 109/72 Respiratory Rate: 16 Pulse Ox: 100 Oxygen Delivery Method: Room Air Airway Assessment Mouth opens: >3 cm Mallampati Score: I Teeth Condition: Caps/Crowns (Patient has 1 crown left lower molar. It is tight.) Neck Range of motion (ROM): Full ROM Focused Labs Anesthesia Preop lab: CBC WBC 8.0 K/mm3 (4.4-11.0) 12/04/24 12:19 12/04/24 RBC 4.62 M/mm3 (4.2-5.4) 12/04/24 12:19 12/04/24 Hgb 12.8 g/dL (12.0-15.0) 12/04/24 12:19 12/04/24 Hct 39.4 % (37-47) 12/04/24 12:19 12/04/24 Plt Count 300 K/mm3 (150-450) 12/04/24 12:19 12/04/24 CHEMISTRY Potassium 3.6 mmol/L (3.5-5.1) 06/06/24 09:13 06/06/24 Sodium 137 mmol/L (136-145) 06/06/24 09:13 06/06/24 Phosphorus 3.5 mg/dL (2.5-4.9) 06/24/21 15:19 06/24/21 BUN 8 mg/dL (7-18) 06/06/24 09:13 06/06/24 Creatinine 0.64 mg/dL (0.55-1.02) 06/06/24 09:13 06/06/24 Glucose 85 mg/dL (74-106) 06/06/24 09:13 06/06/24 TSH 1.80 uIU/mL (0.358-3.74) 06/06/24 09:13 06/06/24 COAG PT 14.0 SECONDS (11.7-14.9) 01/10/25 12:13 01/10/25 Urine Test Negative Negative 01/22/25 08:55 01/22/25 Pre-Assessment Diagnosis/Proposed Procedure Planned Operative Procedure(s): Robotic Cholecystectomy w/grams Anesthesia History 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 When Was Last Pacemaker Check QUESTION #4 FULL TEXT: You/Your Family Experience fever (hyperthermia) with Anesthesia Last Oral Intake Last Oral intake: Last Oral Intake NPO since 23:30 01/22/25 09:15 Meds taken in AM with sips of No 01/22/25 09:15 water? Meds patient instructed to take am of surgery PONV PONV - locomotive supervisor: PONV - locomotive supervisor Female Yes 01/04/25 11:05 HX of Motion Sickness No 01/04/25 11:05 HX of N/V After Surgery No 01/04/25 11:05 Non-Smoker Yes 01/04/25 11:05 Duration of Surgery greater Yes 01/04/25 11:05 than 60 minutes Number of Risk Factors 3 01/04/25 11:05 PONV Score Moderate Risk 01/04/25 11:05 Height & Weight Height & Weight: Anesthesia: Height & Weight Height 5 ft 4 in 01/22/25 09:15 Weight: 76.2 kg 01/22/25 09:15 Body Mass Index (BMI) 28.8 01/22/25 09:15 Respiratory Assessment Respiratory Assessment - locomotive supervisor: Respiratory Tract Infection Hx - locomotive supervisor Hx Respiratory Tract Infection No 01/04/25 11:05 STOP Sleep Apnea STOP Sleep Apnea - locomotive supervisor: STOP Sleep Apnea - locomotive supervisor Hx Hypertension No 01/04/25 11:05 Hx Sleep Apnea No 01/04/25 11:05 CPAP BIPAP Do you snore loudly (louder No 01/04/25 11:05 than talking or can be heard Do you often feel tired/ No 01/04/25 11:05 fatigued/ sleepy during daytime? Has anyone observed you stop No 01/04/25 11:05 breathing during sleep? STOP Results Negative 01/04/25 11:05 QUESTION #5 FULL TEXT : Do you snore loudly (louder than talking or can be heard through closed doors)? 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 Specify any problems Hx of Preganancy in last 3 N/A 01/04/25 11:05 Months Nurse Filling Out Transfusion NBUCHER 01/04/25 11:05 & Questions: Date: 01/04/25 01/04/25 11:05 Time: 11:05 01/04/25 11:05 Patient unable to answer at this time (ie. confused, unrespo /Reproduction History /Reproductive History - locomotive supervisor: /Reproductive Hx- locomotive supervisor Hx Now No 01/04/25 11:05 Gestational Age (in weeks): EDC: Hx Hx Para Hx Section SAB No 01/04/25 11:05 Active Medications Active Medications: Current Medications Generic Name Dose Route Start Last Admin Trade Name Freq PRN Reason Stop Dose Admin Indocyanine Green 3.75 mg/ N/A 1.5 mls @ 999 mls/hr 01/22/25 10:05 01/22/25 09:12 IV 01/22/25 10:06 999 mls/hr PREOP ONE Administration Cefotetan Disodium 2 gm/ 100 mls @ 200 mls/hr 01/22/25 10:05 Sodium Chloride IV 01/22/25 10:34 PREOP ONE Sodium Chloride 1,000 mls @ 15 mls/hr 01/22/25 09:15 01/22/25 09:15 IV 15 mls/hr .Q48H SAYDA Administration PFSH Medical History Cholelithiasis RUQ abdominal pain Preventative health care Wears contact lenses Wears glasses Alcohol use Arthritis Non-smoker Health care maintenance Breast pain, right Diarrhea Anemia Breast lump Home Medications ?Medication ?Instructions ?Recorded ?Last Taken ?Type multivitamin 1 tab PO DAILY 06/24/21 01/21/25 History ferrous sulfate 325 mg (65 mg 325 mg PO DAILY #30 tabs 06/08/24 01/21/25 Rx iron) tablet (FeroSul) Allergy/AdvReac Type Severity Reaction Status Date / Time venom-honey bee Allergy Intermediate Swelling Verified 01/22/25 09:06 Family History Mother Anemia Colon cancer Grandmother Hypertension Anemia Grandfather Parkinsons disease Surgical History History of colonoscopy with polypectomy History of lumpectomy Social History number of children: 3 current occupational status: employed current occupation: [employer] Smoking Status: Never smoker alcohol intake: current alcohol intake frequency: a few times a week substance use type: does not use what type of physical activity do you participate in: walking frequency: daily seatbelt use: always do you feel safe at home: Yes Review of Systems (Anesthesia) ROS Narrative System reviewed and no additional complaints, except as documented.
[2025-01-22] MEDS: Cefotetan 2 GM in 0.9% Normal Saline (100mL MB+) 100 ML IV (10:08)
[2025-01-22] MEDS: Bupivacaine Mpf 0.5% 30 ML VIAL (11:02)
--- NOTE | 2025-01-22 11:09 | PCM.OPRPT ---
Operative Report (Standard) Operative Information Date of Procedure: 01/22/25 Pre-Operative Diagnosis: Biliary colic and cholelithiasis Post-Operative Diagnosis: Same Surgery/Procedure Performed: Robotic assisted laparoscopic cholecystectomy dining server: Yes Notched Blade Loader: Yudy Knight Tasks completed by airline pilot/first officer: Opening and Closing Type of Anesthesia: General/Regional RN Documented Start/Stop Times: Operation Date: 01/22/25 10:05 Case Time Into Pre-Op 01/22/25 08:44 Anesthesia Start 01/22/25 09:56 Into Room 01/22/25 09:56 Out of Pre-Op 01/22/25 10:03 Procedure Start 01/22/25 10:15 Procedure Start Time: 10:15 Procedure Stop Time: 11:05 Select all DRAINS/GRAFTS/IMPLANTS that apply: None Estimated Blood Loss: 5 Specimen collected: Yes Description of specimen(s) removed: Gallbladder Description of surgery: Patient was roaming the operating room and general anesthesia was induced. The abdomen was prepped and draped in usual sterile fashion. A left upper quadrant incision was made and a Veress needle was placed into the abdomen and a drop test was performed. The abdomen was then insufflated to 15 mmHg. Port was placed into the abdomen and then under direct visualization 3 additional 8 mm ports were placed. Patient was placed in reverse Trendelenburg position and the robot was docked. Grasper was used to elevate the gallbladder and the adhesions to it were bluntly dissected free. The infundibulum was located and retracted laterally. The cystic duct was traced and using ICG immunofluorescence it was identified. The hook was used to take down all of the attachments around the cystic duct. The cystic artery was then identified and a clip was placed on it. Next 3 clips were placed on the cystic duct and it was divided. 2 additional clips were placed on the cystic artery and it was divided. The clips retracted well and then the gallbladder was taken off of the gallbladder fossa using the hook. There was some spillage of bile taken the gallbladder off of the liver. This was irrigated and suction. The gallbladder was then placed into a bag and removed through one of the right-sided abdominal ports. All of the ports were injected with anesthesia and then closed with interrupted 4-0 Monocryl sutures and Steri-Strips and bandages. Patient was awoken and taken to PACU in stable condition. Surgical Findings: None Complications Complications: No Admit VTE Documentation VTE Mechan Device Prophylaxis: SCD's
--- NOTE | 2025-01-22 11:14 | EX.PCM.DISCH ---
Discharge Instructions Procedure Gallbladder Diet Discharge Diet: Light diet - advance as tolerated Activity Discharge Activity: May Not Drive (for 2-3 days or while taking narcotic pain medications.) and - (Do not drive, work heavy equipment or sign legal documents for 24 hours.) May shower in (days): 1 Lifting Restrictions: 20 lbs for 2 weeks Additional Activity Instructions:: Pain medication may cause nausea. You should typically eat light foods as you take your pain medications. Pain medication may also cause constipation. If this is a problem for you, please discuss with your doctor. Alternate ibuprofen and Tylenol for pain control, oxycodone for breakthrough pain Dressing / Incision Call your doctor if your incision/area has: Continuous Slow Oozing, Sudden Increased Bleeding, Increased Pain/ Swelling, Increased Redness and Foul Smelling Discharge Call your doctor if you observe: Fever of 101 or Higher Suture Line Care: Avoid Pulling/Pushing and Avoid Pinching/Bending Remove Dressing in: 2 days Additional Dressing/Incision Instructions:: Leave operative bandaids on for 2 days. When you remove dressing, leave Steri-Strips on until your follow-up appointment, or until the Steri-Strips fall off on their own. Follow Up Care Please Follow Up With: Eric Mistry MD When: Please call to schedule 2 week follow up appointment. [phone] Test Results: Test results from this visit will be discussed in further detail at your follow-up appointment, if applicable. Discharge Plan Admission Attending Provider: Eric Mistry Primary Care Provider: Óscar Mobley Instructions Print Language: Paraguayan Discharge Orders/Prescriptions Prescriptions: New oxycodone 5 mg Tablet 5 - 10 mg PO Q4H PRN PRN (Reason: Pain Score 4-10) 5 Days Qty: 20 0RF No Action multivitamin Tablet 1 tab PO DAILY ferrous sulfate [FeroSul] 325 mg (65 mg iron) tablet 325 mg PO DAILY Qty: 30 0RF Other Ambulatory Orders: 12 Lead EKG (Routine) Location: None Selected Ordered By: Dr. Yash Looney Referrals / Follow Up: Óscar Mobley MD [Primary Care Provider] - Disposition Disposition (needs filled in before D/C Order can be placed): Home, Self Care
--- NOTE | 2025-01-22 11:19 | PCM.POST.ANE ---
Anesthesia: Postop Eval I Current Vital Signs Temperature: 98.6 F Pulse Rate: 83 Blood Pressure: 121/84 Respiratory Rate: 20 Pulse Ox: 98 Oxygen Delivery Method: Non-Rebreather Oxygen Flow Rate (L/min): 6 Assessment Airway patent: Yes Spontaneous unlabored respirations: Yes Mental status: Asleep nausea: No Vomiting: No Anesthesia Complication: No Fluid Hydration Crystalloid volume administer (ml): 800 Total IV fluid infused: 800 Progress Note Anesthesia document: Postop Eval 1 completed: Yes
--- NOTE | 2025-01-22 12:25 | POSTOPAN2_ITS ---
Anesthesia Postop Eval I Sum Postop Eval Completion status Anesthesia document: Postop Eval 1 completed: Yes Anesthesia Postop Eval I Summary Anesthesia Postop Eval I Summary: Anesthesia Postop Eval I: Assessment Summary Airway patent Yes 01/22/25 11:21 CASHIER [email or web address] Spontaneous unlabored Yes 01/22/25 11:21 CASHIER [email or web address] respirations Mental status Asleep 01/22/25 11:21 CASHIER [email or web address] nausea No 01/22/25 11:21 CASHIER [email or web address] Vomiting No 01/22/25 11:21 CASHIER [email or web address] Anesthesia Postop Eval I: Fluid Summary Crystalloid volume administer 800 01/22/25 11:21 CASHIER [email or web address] (ml) Colloids volume administered ( ml) Blood Product volume administered (ml) Total IV fluid infused 800 01/22/25 11:21 CASHIER [email or web address] Anesthesia Postop Eval I: Summary Notes Anesthesia Complication No 01/22/25 11:21 CASHIER [email or web address] Anesthesia Complication Comment: Post-operative progress note Anesthesia: Postop Eval II Evaluation Mental status: Awake Pain Level: 3 nausea: No Vomiting: No
--- NOTE | 2025-01-22 12:25 | PCM.POSTANE2 ---
Anesthesia Postop Eval I Sum Postop Eval Completion status Anesthesia document: Postop Eval 1 completed: Yes Anesthesia Postop Eval I Summary Anesthesia Postop Eval I Summary: Anesthesia Postop Eval I: Assessment Summary Airway patent Yes 01/22/25 11:21 SENIOR SCRUM MASTER.[email or web address] Spontaneous unlabored Yes 01/22/25 11:21 SENIOR SCRUM MASTER.JSWI respirations Mental status Asleep 01/22/25 11:21 SENIOR SCRUM MASTER.[email or web address] nausea No 01/22/25 11:21 SENIOR SCRUM MASTER.JSWI Vomiting No 01/22/25 11:21 SENIOR SCRUM MASTER.JSWI Anesthesia Postop Eval I: Fluid Summary Crystalloid volume administer 800 01/22/25 11:21 SENIOR SCRUM MASTER.JSWI (ml) Colloids volume administered ( ml) Blood Product volume administered (ml) Total IV fluid infused 800 01/22/25 11:21 SENIOR SCRUM MASTER.JSWI Anesthesia Postop Eval I: Summary Notes Anesthesia Complication No 01/22/25 11:21 SENIOR SCRUM MASTER.JSWI Anesthesia Complication Comment: Post-operative progress note Anesthesia: Postop Eval II Evaluation Mental status: Awake Pain Level: 3 nausea: No Vomiting: No
[2025-01-22] MEDS: Acetaminophen 325 MG Tablet 650 MG PO (12:50)
[2025-01-22] MEDS: oxyCODONE 5 MG Tablet PO (12:50)
== END 2025-01-22 14:06 | disposition home or self-care (01) ==
LOC: SDC 08:20 → AC 08:29
PROVIDERS: Anesthesiology; PCP Internal Medicine; Referring Provider Surgery; Visit Provider Surgery
PROC: 0FT44ZZ Resection of Gallbladder, Percutaneous Endoscopic Approach (ICD-10-PCS; CPT 47562; principal; 2025-01-22 09:45)
DX: K80.11 Calculus of gallbladder with chronic cholecystitis with obstruction (principal)
CPT/HCPCS: 47562; S2900; 00790; 36415; 81025; 85610; 85730; 88304; 93005; J2405

== ENCOUNTER 2025-06-08 23:16 | Emergency (ER) | payer OTHER, SELFPAY ==
[2025-06-08 23:16] VITALS: BP 150/82; PULSE 81; RESP 18; TEMP 37; O2SAT 99; BMI 27.4
--- OUTSIDE RECORDS SUMMARY | 2025-06-08 23:32 | XMS RPT_ITS | CCD ---
Author Organization [facility] Care Team Providers Care Materials Handling Coordinator Name Role Phone Dr. Óscar Mobley Primary Care Provider [phone] Dr. Óscar Mobley Attending Provider [phone] Dr. Óscar Mobley Referring Provider [phone] Itz HOWE, Dr. Cantrell Primary Care Provider Yi HORNER-CSamara Attending Provider Yi HOURLY SHIFT MANAGER-CSamara Referring Provider Itz HOWE, Dr. Cantrell Attending Provider [phone] Itz HOWE, Dr. Cantrell Referring Provider Fede HOWE, Dr. Reyes Attending Provider Dr. Wilian Salguero MD Attending Provider Aure HOWE, Dr. Berrios Referring Provider Fede HOWE, Dr. Reyes Referring Provider Fede HOWE, Dr. Reyes Other Provider Oleghe, Efewongbe Attending Unavailable Oleghe, Efewongbe Primary Care Unavailable Oleghe, Efewongbe Referring Unavailable Oleghe, Efewongbe Primary Care Unavailable Friend, Jordan Referring Unavailable Friend, Jordan Attending Unavailable Eric Mistry Consulting Unavailable Oleghe, Efewongbe Primary Care Unavailable Eric Mistry Referring Unavailable Eric Mistry Attending Unavailable Oleghe, Efewongbe Primary Care Unavailable Friend, Jordan Referring Unavailable Friend, Jordan Attending Unavailable Friend, Jordan Consulting Unavailable Oleghe, Efewongbe Primary Care Unavailable Oleghe, Efewongbe Referring Unavailable Samara Richmond Attending Unavailable Oleghe, Efewongbe Primary Care Unavailable Oleghe, Efewongbe Referring Unavailable Tita Wick Attending Unavailable Oleghe, Efewongbe Primary Care Unavailable Oleghe, Efewongbe Referring Unavailable Oleghe, Efewongbe Attending Unavailable Oleghe, Efewongbe Primary Care Unavailable Oleghe, Efewongbe Referring Unavailable Nahomy Joyner Attending Unavailable Oleghe, Efewongbe Primary Care Unavailable Oleghe, Efewongbe Referring Unavailable Oleghe, Efewongbe Attending Unavailable Oleghe, Efewongbe Primary Care Unavailable Oleghe, Efewongbe Referring Unavailable Eric Mistry Attending Unavailable Oleghe, Efewongbe Attending Unavailable Oleghe, Efewongbe Primary Care Unavailable Oleghe, Efewongbe Referring Unavailable Samara Richmond Attending Unavailable Oleghe, Efewongbe Primary Care Unavailable Oleghe, Efewongbe Referring Unavailable Wilian Salguero Attending Unavailable Aure, Yahs Referring Unavailable Oleghe, Efewongbe Primary Care Unavailable Oleghe, Efewongbe Primary Care Unavailable Eric Mistry Referring Unavailable Eric Mistry Attending Unavailable Samara Richmond Attending Unavailable Oleghe, Efewongbe Primary Care Unavailable Samara Richmond Referring Unavailable Samara Richmond Attending Unavailable Oleghe, Efewongbe Primary Care Unavailable Samara Richmond Referring Unavailable Oleghe, Efewongbe Primary Care Unavailable Nahomy Joyner Referring Unavailable Nahomy Joyner Attending Unavailable Allergies Allergy Classification Reported Allergen(s) Allergy Type Date of Onset Reaction(s) Facility (4 sources) venom-honey bee Allergy to substance 06-24-2021 Swelling [facility] (1 source) venom-honey bee Drug allergy (disorder) 02-07-2025 [facility] Repository Medications Current Medications Medication Drug Class(es) Dates Sig (Normalized) Sig (Original) ferrous sulfate 325 mg oral tablet (13 sources) Start: 06-24-2021 End: 06-08-2024 take 1 tablet by mouth once daily Ferrous Sulfate (Ferosul) 325 mg (65 mg iron) tablet Active 325 mg PO DAILY June 08, 2024 8:47am Start: 08-05-2014 End: 08-01-2019 take 1 tablet by mouth once daily Ferrous Sulfate 325 MG tablet Discontinued 325 mg PO DAILY 60 August 05, 2014 8:25pm August 01, 2019 12:53pm Multivitamin preparation (6 sources) Start: 06-24-2021 take 1 tablet by mouth once daily Multivitamin Active 1 TABLET PO DAILY June 24, 2021 2:46pm Start: 06-24-2021 take 1 tablet by sayra th once daily Multivitamin Active 1 TABLET PO DAILY June 23, 2021 11:00pm Start: 07-09-2017 End: 08-01-2019 Multivitamin Discontinued 1 TABLET DAILY July 09, 2017 7:14pm August 01, 2019 12:53pm Start: 07-09-2017 End: 08-01-2019 Multivitamin Discontinued 1 TABLET DAILY July 08, 2017 11:00pm August 01, 2019 11:53am Multivitamin tablet (1 source) Start: 06-24-2021 Multivitamin t ablet Active 1 {tbl} PO DAILY June 24, 2021 12:00am oxyCODONE hydrochloride 5 mg oral tablet (1 source) Opioid Agonist Start: 01-22-2025 take 5-10 mg by mouth every four hours as needed for pain Oxycodone 5 mg Tablet Active 5 - 10 mg PO EVERY 4 HOURS NEEDED as needed for Pain Score 4-10 20 January 22, 2025 Completed/Discontinued Medications Medication Drug Class(es) Dates Sig (Normalized) Sig (Original) cephalexin 500 mg oral capsule (7 sources) Cephalosporin Antibacterial Start: 05-06-2023 End: 05-16-2023 take 1 capsule by mouth every twelve hours Cephalexin 500 mg capsule Discontinued 500 mg PO Q12H 20 May 06, 2023 12:00am May 15, 2023 12:00am May 16, 2023 12:04am Start: 08-01-2019 End: 07-26-2020 take 1 capsule by mouth twice daily Cephalexin 250 mg capsule Discontinued 250 mg PO TWICE A DAY August 01, 2019 12:00am July 26, 2020 7:15am ibuprofen 800 mg oral tablet (4 sources) Nonsteroidal Anti-inflammatory Drug Start: 08-11-2017 End: 08-01-2019 take 1 tablet by mouth three times daily as needed for pain Ibuprofen 800 MG tablet Discontinued 800 mg PO 3 TIMES DAILY NEEDED as needed for pain or cramping August 11, 2017 12:00am August 01, 2019 12:53pm methylPREDNISolone 4 mg oral tablet (3 sources) Corticosteroid Start: 05-06-2023 End: 05-12-2023 take 1 tablet by mouth once Methylprednisolone (Medrol (Nabeel)) 4 mg tablets,dose pack Discontinued 4 mg PO per package directions 28 04May 06, 2023 12:00am May 11, 2023 12:00am May 12, 2023 12:03am Multivitamin 1 EACH tablet (1 source) Start: 07-09-2017 End: 08-01-2019 Multivitamin 1 EACH tablet Discontinued 1 {tbl} DAILY July 09, 2017 12:00am August 01, 2019 12:53pm Prednisone (4 sources) Start: 08-01-2019 End: 07-26-2020 Prednisone Discontinued 0 PO per package directions August 01, 2019 1:02pm July 26, 2020 7:15am use as directed Start: 08-01-2019 End: 07-26-2020 Prednisone 10 mg tablets,dos e pack Discontinued 0 PO per package directions August 01, 2019 12:00am July 26, 2020 7:15am use as directed Start: 08-01-2019 End: 07-26-2020 Prednisone Discontinued 0 PO per package directions July 31, 2019 11:00pm July 26, 2020 6:15am use as directed Vit,Ufei21-Wjyt-Evqln (Prenatabs Fa ) 1 TABLET tablet (4 sources) Start: 08-05-2014 End: 08-05-2014 take 1 tablet by mouth once daily Vit,Vnvx11-Nguc-Mctfl (Prenatabs Fa ) 1 TABLET tablet Discontinued 1 TABLET PO DAILY August 05, 2014 7:56am August 05, 2014 8:25pm Start: 08-05-2014 End: 08-05-2014 take 1 tablet by mouth once daily Vit,Mpjd00-Lsli-Cosxz (Prenatab s Fa ) 1 TABLET tablet Discontinued 1 {tbl} PO DAILY August 05, 2014 12:00am August 05, 2014 8:25pm Start: 08-05-2014 End: 08-05-2014 take 1 tablet by mouth once daily Vit,Qgql19-Aada-Qnghf (Prenatab s Fa ) 1 TABLET tablet Discontinued 1 TABLET PO DAILY August 04, 2014 11:00pm August 05, 2014 7:25pm sulfacetamide sodium 100 mg/ml ophthalmic solution (4 sources) Sulfonamide Antibacterial Start: 06-03-2021 End: 06-10-2021 Sulfacetamide Sodium (Bleph-10) 10 % drops Discontinued 1 NMA OPHTHALMIC Q3H 15 June 03, 2021 12:00am June 09, 2021 12:00am June 10, 2021 12:01am Start: 06-03-2021 End: 06-10-2021 Sulfacetamide Sodium (Bleph- 10) 10 % drops Discontinued 1 DRP OPHTHALMIC Q3H 15 June 02, 2021 11:00pm June 09, 2021 11:01pm Problems Active Problems Problem Classification Problem Date Documented Da te Episodic/Chronic Abdominal pain (5 sources) Right upper quadrant pain; Translations: [Right upper quadrant pain] Onset: 05-03-2024 12-04-2024 Episodic Biliary tract disease (4 sources) Biliary calculus; Translations: [Calculus of gallbladder without cholecystitis without obstruction] Onset: 02-01-2025 12-13-2024 Episodic Deficiency and other anemia (4 sources) Anemia; Translations: [Anemia, unspecified] 08-30-2023 Episodic Deficiency and other anemia (2 sources) Anemia, unspecified; Translations: [Anemia, unspecified] 08-30-2023 Episodic Deficiency and other anemia (1 source) Iron deficiency anemia, unspecified; Translations: [Iron deficiency anemia, unspecified] Onset: 12-19-2024 Episodic E Codes: Natural/environment (3 sources) Insect bite - wound; Translations: [Bitten or stung by nonvenomous insect and other nonvenomous arthropods, initial encounter] 05-06-2023 Episodic Inflammation; infection of eye (except that caused by tuberculosis or sexually transmitteddisease) (4 sources) Acute conjunctivitis; Translations: [Unspecified acute conjunctivitis, right eye] 06-03-2021 Episodic Menstrual disorders (2 sources) Intermenstrual bleeding - irregular; Translations: [Excessive and frequent menstruation with irregular cycle] Onset: 06-08-2024 05-03-2024 Chronic Nonmalignant breast conditions (5 sources) Mastodynia; Translations: [Pain of right breast] 08-30-2023 Episodic Other gastrointestinal disorders (3 sources) Diarrhea; Translations: [Diarrhea, unspecified] 08-30-2023 Episodic Other gastrointestinal disorders (2 sources) Diarrhea, unspecified; Translations: [Diarrhea] 08-30-2023 Episodic Other screening for suspected conditions (not mental disorders or infectious disease) (1 source) Patient encounter status; Translations: [Encounter for screening for malignant neoplasm of colon] 06-06-2024 Episodic Past or Other Problems Problem Classification Problem Date Documented Da te Episodic/Chronic Residual codes; unclassified (1 source) Family history of malignant neoplasm of digestive organs; Translations: [Family history of malignant neoplasm of digestive organs] Onset: 05-03-2024 Episodic Results Test Name Value Interpretation Reference Range Facility Surgery Visit Reporton 02-07 Surgery Visit Report [facility] [address] [place] [address] OFFICE VISIT Date of Service: 02/07/25 MR#: [id number] Acct: [id number] Name: MINDY CERDA Rep #: [id number] : 1985 Provider: SUGAR cantrell Age/Sex: 39/F Location: [facility] Status: Signed Intake Vital Signs 01/22/25 09:15 Height 5 ft 4 in Intake Visit Reasons: GALLBLADDER 3- Chief Complaint: Gallbladder 01/22 Is patient in pain?: No Allergies venom-honey bee Allergy (Intermediate, Verified 02/07/25 14:15) Swelling Medications ???Medication ???Instructions ???Recorded ???Confirmed ???Type multivitamin 1 tab PO DAILY 06/24/21 02/07/25 H istory ferrous sulfate 325 mg (65 mg 325 mg PO DAILY #30 tabs 06/08/24 02/07/25 Rx iron) tablet (FeroSul) Subjective Details: Patient is a 39 y/o F I am following s/p robotic assisted laparoscopic cholecystectomy by Dr. Mistry on 01/22/25. Patient tolerated the procedure well. Patient denies any nausea, vomiting, fever. Patient notes her appetite is slowly returning to normal. She notes her bowel habits are slowly returning to normal. Pathology demonstrated chronic cholecystitis with cholelithiasis. Objective Details: Abdomen- soft, nontender. Incisions c/d/i. No erythema or infection noted. Coding Level of Care Code Global Post Op Diagnoses S/P cholecystectomy Z90.49 [facility] Medical History Cholelithiasis RUQ abdominal pain Preventative health care Wears contact lenses Wears glasses Alcohol use Arthritis Non-smoker Health care maintenance Breast pain, right Diarrhea Anemia Breast lump Surgical History (Updated 02/07/25 @ 14:16 by Berta Reyes) S/P cholecystectomy History of colonoscopy with polypectomy History of lumpectomy Family History Mother Anemia Colon cancer Grandmother Hypertension Anemia Grandfather Parkinsons disease Social History number of children: 3 current occupational status: employed current occupation: [employer] Smoking Status: Never smoker alcohol intake: current alcohol intake frequency: a few times a week substance use type: does not use what type of physical activity do you participate in: walking frequency: daily seatbelt use: always do you feel safe at home: Yes Assessment and Plan (No Qualifiers) Assessment and Plan (1) S/P cholecystectomy: Status: Acute Plan: Recommend no lifting greater than 35 pounds for an additional week Patient has already returned to work without any concerns Paperwork was filled out Follow-up as needed 02/08/25 1509 Date Tita Saenz Signature: Date (if applicable) CC: Dr. Óscar Mobley MD Normal [facility] Discharge Instructionon 01-[address] [facility] Medical Records Department [address] [place] [address] Instructions for Home/Discharge Instructions 01/22/25 1114 MR#: [id number] Acct: [id number] Name: MINYD CERDA Rep #: [id number] : 1985 39 From: Eric Mistry MD PCP: Dr. Óscar Mobley MD Status:REG SDC Discharge Instructions Procedure Gallbladder Diet Discharge Diet: Light diet - advance as tolerated Activity Discharge Activity: May Not Drive (for 2-3 days or while taking narcotic pain medications.) and - (Do not drive, work heavy equipment or sign legal documents for 24 hours.) May shower in (days): 1 Lifting Restrictions: 20 lbs for 2 weeks Additional Activity Instructions:: Pain medication may cause nausea. You should typically eat light foods as you take your pain medications. Pain medication may also cause constipation. If this is a problem for you, please discuss with your doctor. Alternate ibuprofen and Tylenol for pain control, oxycodone for breakthrough pain Dressing / Incision Call your doctor if your incision/area has: Continuous Slow Oozing, Sudden Increased Bleeding, Increased Pain/ Swelling, Increased Redness and Foul Smelling Discharge Call your doctor if you observe: Fever of 101 or Higher Suture Line Care: Avoid Pulling/Pushing and Avoid Pinching/Bending Remove Dressing in: 2 days Additional Dressing/Incision Instructions:: Leave operative bandaids on for 2 days. When you remove dressing, leave Steri-Strips on until your follow-up appointment, or until the Steri-Strips fall off on their own. Follow Up Care Please Follow Up With: Eric Mistry MD When: Please call to schedule 2 week follow up appointment. [phone] Test Results: Test results from this visit will be discussed in further detail at your follow-up appointment, if applicable. Discharge Plan Admission Attending Provider: Eric Mistyr Primary Care Provider: Ósacr Mobley Instructions Print Language: Armenian Discharge Orders/Prescriptions Prescriptions: New oxycodone 5 mg Tablet 5 - 10 mg PO Q4H PRN PRN (Reason: Pain Score 4-10) 5 Days Qty: 20 0RF No Action multivitamin Tablet 1 tab PO DAILY ferrous sulfate [FeroSul] 325 mg (65 mg iron) tablet 325 mg PO DAILY Qty: 30 0RF Other Ambulatory Orders: 12 Lead EKG (Routine) Location: None Selected Ordered By: Dr. Yash Looney Referrals / Follow Up: Óscar Mobley MD [Primary Care Provider] - Disposition Disposition (needs filled in before D/C Order can be placed): Home, Self Care 01/22/25 111 Eric Mistry MD CC: Dr. Óscar Mobley MD Signed [facility] MR/POSTOP.ANE 01-22-2025 MR/POSTOP.[facility] Medical Records Department [address] [place] [address] Anesthesia Postop Eval I 01/22/25 111 MR#: [id number] Acct: [id number] Name: MINDY CERDA Rep #: [id number] : 1985 39 From: Lacy Valdez CRNA PCP: Dr. Óscar Mobley MD Status:REG SDC Y Race: C Location: [place] [address] Anesthesia: Postop Eval I Current Vital Signs Temperature: 98.6 F Pulse Rate: 83 Blood Pressure: 121/84 Respiratory Rate: 20 Pulse Ox: 98 Oxygen Delivery Method: Non-Rebreather Oxygen Flow Rate (L/min): 6 Assessment Airway patent: Yes Spontaneous unlabored respirations: Yes Mental status: Asleep nausea: No Vomiting: No Anesthesia Complication: No Fluid Hydration Crystalloid volume administer (ml): 800 Total IV fluid infused: 800 Progress Note Anesthesia document: Postop Eval 1 completed: Yes 01/22/25 1121 Date Lacy Valdez VOLLEYBALL ASSEMBLER Cosigner Signature: Date CC: Signed [facility] MR/[id number] 01-22-2025 MR/POST[address] Medical Records Department [address] [place] [address] Anesthesia Postop Eval II 01/22/25 1225 MR#: [id number] Acct: [id number] Name: MINDY CERDA Rep #: [id number] : 1985 39 From: Harika Flores PCP: Dr. Óscar Mobley MD Status:REG SDC Y Race: C Location: [place] [address] Anesthesia Postop Eval I Sum Postop Eval Completion status Anesthesia document: Postop Eval 1 completed: Yes Anesthesia Postop Eval I Summary Anesthesia Postop Eval I Summary: Anesthesia Postop Eval I: Assessment Summary Airway patent Yes 01/22/25 11:21 VOLLEYBALL [email or web address] Spontaneous unlabored Yes 01/22/25 11:21 VOLLEYBALL [email or web address].[email or web address] respirations Mental status Asleep 01/22/25 11:21 VOLLEYBALL [email or web address] nausea No 01/22/25 11:21 VOLLEYBALL [email or web address] Vomiting No 01/22/25 11:21 VOLLEYBALL [email or web address].[email or web address] Anesthesia Postop Eval I: Fluid Summary Crystalloid volume administer 800 01/22/25 11:21 VOLLEYBALL [email or web address].[email or web address] (ml) Colloids volume administered ( ml) Blood Product volume administered (ml) Total IV fluid infused 800 01/22/25 11:21 VOLLEYBALL [email or web address].[email or web address] Anesthesia Postop Eval I: Summary Notes Anesthesia Complication No 01/22/25 11:21 VOLLEYBALL [email or web address].[email or web address] Anesthesia Complication Comment: Post-operative progress note Anesthesia: Postop Eval II Evaluation Mental status: Awake Pain Level: 3 nausea: No Vomiting: No 01/22/25 1225 Date Harika Saenz Signature: Date CC: Signed [facility] Operative Reporton 5 Operative Report [facility] Medical Records Department [address] [place] [address] Operative Report 01/22/25 1109 MR#: [id number] Acct: [id number] Name: MINDY CERDA Rep #: [id number] : 1985 39 From: Eric Mistry MD PCP: Dr. Óscar Mobley MD Status:REG [facility] [place]: [place] [address]- Operative Report (Standard) Operative Information Date of Procedure: 01/22/25 Pre-Operative Diagnosis: Biliary colic and cholelithiasis Post-Operative Diagnosis: Same Surgery/Procedure Performed: Robotic assisted laparoscopic cholecystectomy church official: Yes Office Services Clerk: Yudy Knight Tasks completed by first cook: Opening and Closing Type of Anesthesia: General/Regional RN Documented Start/Stop Times: Operation Date: 01/22/25 10:05 Case Time Into Pre-Op 01/22/25 08:44 Anesthesia Start 01/22/25 09:56 Into Room 01/22/25 09:56 Out of Pre-Op 01/22/25 10:03 Procedure Start 01/22/25 10:15 Procedure Start Time: 10:15 Procedure Stop Time: 11:05 Select all DRAINS/GRAFTS/IMPLANT S that apply: None Estimated Blood Loss: 5 Specimen collected: Yes Description of specimen(s) removed: Gallbladder Description of surgery: Patient was roaming the operating room and general anesthesia was induced. The abdomen was prepped and draped in usual sterile fashion. A left upper quadrant incision was made and a Veress needle was placed into the abdomen and a drop test was performed. The abdomen was then insufflated to 15 mmHg. Port was placed into the abdomen and then under direct visualization 3 additional 8 mm ports were placed. Patient was placed in reverse Trendelenburg position and the robot was docked. Grasper was used to elevate the gallbladder and the adhesions to it were bluntly dissected free. The infundibulum was located and retracted laterally. The cystic duct was traced and using ICG immunofluorescence it was identified. The hook was used to take down all of the attachments around the cystic duct. The cystic artery was then identified and a clip was placed on it. Next 3 clips were placed on the cystic duct and it was divided. 2 additional clips were placed on the cystic artery and it was divided. The clips retracted well and then the gallbladder was taken off of the gallbladder fossa using the hook. There was some spillage of bile taken the gallbladder off of the liver. This was irrigated and suction. The gallbladder was then placed into a bag and removed through one of the right-sided abdominal ports. All of the ports were injected with anesthesia and then closed with interrupted 4-0 Monocryl sutures and Steri-Strips and bandages. Patient was awoken and taken to PACU in stable condition. Surgical Findings: None Complications Complications: No Admit VTE Documentation VTE Mechan Device Prophylaxis: SCD's 01/22/25 1113 Cosigner Signature (if applicable): CC: Dr. Eric Mistry MD; Dr. Óscar Mobley MD Signed Normal [facility] ,Urineon 01-22-2025 Beta HCG ( test) Ql (U) Negative Normal [facility] Comment on above: Result Comment: Very dilute urine specimens, as indicated by a low specific gravity, may not contain telephone service representative levels of hCG. If is still suspected, a first morning urine specimen should be collected 48 hours later and tested. Performed By: #### L [id number] ####[facility] [id number] [place], [address] Surgery Specimen Level IIIon 01-22-2025 Surgery Specimen Level III -------- Patient Age/Sex Location Account Attending Physician -------- MINDY CERDA 39/F [facility] [id number]. Eric Mistry MD -------- Specimen: [id number] Received: 01/22/25 Status: YU Vargas Num: [id number] Spec Type: GRACIELA Troy Dr: Dr. Eric Mistry MD HEADER OPERATION: Robotic cholecystectomy PRE-OP DIAGNOSIS: Cholelithiasis TISSUE SUBMITTED: A- Gallbladder -------- MICROSCOPIC DIAGNOSIS A. Gallbladder, cholecystectomy: * Chronic cholecystitis with cholelithiasis. * MICROSCOPIC DESCRIPTION Slides are reviewed. GROSS DESCRIPTION A. Received in fixative is one container labeled with the patient's name and designated Gallbladder. The specimen consists of a gallbladder containing palpable gallstones with specimen measuring 9.5 x 2.5 x 2.5cm. The hepatic bed is inked in black. The specimen contains numerous multifaced green gall stones. The mucosal surface is red and hemorrhagic. Three telephone service representative sections are placed in one cassette. 01/22/2025 CPT:22846 -------- Patient Age/Sex Location Account Attending Physician -------- MINDY CERDA 39/F [facility] [id number] Dr. Erci Mistry MD -------- Signed (signature on file) Dr. Isabell Guzmán MD 01/29/25 1332 -------- Normal [facility] Comment on above: Performed By: #### P SUIII ####[facility] [address]. [place], [place], [address] Urine testOrdered By: Yash Looney on 01-22-2025 HCG ( test) Ql (U) Negative [facility] Comment on above: Very dilute urine sp ecimens, as indicated by a low specificgravity, may not contain telephone service representative levels of hCG. If is still suspected, a first morning urinespecimen should be collected 48 hours later and tested. Electrocardiogram reportOrde red By: Wilian Salguero on 01-11-2025 EKG study [facility] Cardiovascular Services [address] [place] [address] 12 Lead EKG 01/10/25 1204 MR#: [id number] Acct: [id number] Name: MINDY CERDA Rep #:[id number] : 1985 39 From: Wilian caicedo MD Attending Dr: Dr. Eric Mistry MD Status: PRE SDC Ordering Dr: Yash Looney MD Date: 01/10/25 [place] [facility] Sex: F C Admitted: Test Reason : PREOP Blood Pressure : */* mmHG Vent. Rate : 80 BPM Atrial Rate : 80 BPM P-R Int : 156 ms QRS Dur : 86 ms QT Int : 374 ms P-R-T Axes : 61 46 29 degrees QTcB Int : 431 ms Normal sinus rhythm Normal ECG Confirmed by Wilian Salguero ([id number]), fan mail editor TITA HUERTA ([id number]) on 01/11/2025 6:58:08 AM Referred By: Eric Mistry Confirmed By: Wilian Salguero 01/11/25 0658 Date _ Wilian Salguero MD CC: Dr. Yash Looney MD; Dr. Eric Mistry MD; Dr. Óscar Mobley MD ~ Signed [facility] Work Phone: 12 Lead EKGon 01-10-2025 12 Lead EKG [facility] Cardiovascular Services [address] [place] [id number] 12 Lead EKG 01/10/25 1204 MR#: [id number] Acct: [id number] Name: MINDY CERDA Rep #: [id number] : 1985 39 From: Wilian Salguero MD Attending Dr: Dr. Eric Mistry MD Status: PRE SDC Ordering Dr: Yash Looney MD Date: 01/10/25 [facility] [facility] [place] F C Admitted: Test Reason : PREOP Blood Pressure : */* mmHG Vent. Rate : 80 BPM Atrial Rate : 80 BPM P-R Int : 156 ms QRS Dur : 86 ms QT Int : 374 ms P-R-T Axes : 61 46 29 degrees QTcB Int : 431 ms Normal sinus rhythm Normal ECG Confirmed by Wilian Salguero ([id number]), fan mail editor TITA HUERTA ([id number]) on 01/11/2025 6:58:08 AM Referred By: Eric Mistry Confirmed By: Wilian Salguero 01/11/25 0658 Date Wilian Salguero MD CC: Dr. Yash Looney MD; Dr. Eric Mistry MD; Dr. Óscar Mobley MD Signed Normal [facility] International normalized rat io (INR) calculationOrdered By: Yash Looney on 01-10-2025 INR Coag (Bld) [Relative time] 1.1 {INR} [facility] Partial Thromboplast Timeon 01-10-2025 aPTT Coag (Bld) [Time] 27.1 s Normal 24.1-36.[address] [facility] Comment on above: Performed By: #### L 300.3900, L300.4310 #### [facility] [address] [place], [address] Prothrombin Time w/INRon INR Coag (PPP) [Relative time] 1.1 {INR} Normal [facility] Comment on above: Performed By: #### L 300.3900, L300.4310 #### [facility] [address] [place], [address] PT Coag (PPP) [Time] 14.0 s Normal 11.7-14.9 [facility] Comment on above: Performed By: #### L 300.3900, L300.4310 #### [facility] [address] [place], [address] Prothrombin timeOrdered By: Yash Looney on 01-10-2025 PT Coag (PPP) [Time] 14.0 s 11.7-14.9 [facility] aPTT Coag (PPP) [Time]Ordere d By: Yash Looney on 01-10-2025 aPTT Coag (Bld) [Time] 27.1 s 24.1-36.[address] [facility] Internal Medicine Office Vis jose raul 01-08-2025 Internal Medicine Office Visit [facility] [address] [place] [address] OFFICE VISIT Date of Service: 01/08/25 MR#: [id number] Acct: [id number] Name: MINDY CERDA Rep #: [id number] : 1985 Provider: Dr. 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 Mistry. They ordered ekg and labs through them. Is feeling better now that she is going to get that out. [facility] Medical History Cholelithiasis RUQ abdominal pain Preventative health care Wears contact lenses Wears glasses Alcohol use Arthritis Non-smoker Health care maintenance Breast pain, right Diarrhea Anemia Breast lump Surgical History History of colonoscopy with polypectomy History of lumpectomy Family History Mother Anemia Colon cancer Grandmother Hypertension Anemia Grandfather Parkinsons disease Social History number of children: 3 current occupational status: employed current occupation: [employer] Smoking Status: Never smoker alcohol intake: current alcohol intake frequency: a few times a week substance use type: does not use what type of physical activity do you participate in: walking frequency: daily seatbelt use: always do you feel safe at home: Yes HPI HPI Chief Complaint: Follow-up Details: MINDY CERDA, is a 39 F who presents to the office today for follow-up. No acute concerns at this time. Since her last visit following workup suggestive of cholecystitis, she has established with general surgery and plan is for cholecystectomy. She states that her symptoms have improved with dietary changes that she feels overall better. No new concerns in that regard. Chronic history of anemia, CBC just over a month ago with some improvement in the hemoglobin count. Continues on ferrous sulfate. ROS Const Constitutional: No body ache, chills, excessive sweating, fatigue, fever(s), frequent falls, headache(s), snoring, weakness, sleep problems or change in appetite Eyes Eyes: No blurry vision, change in vision, dry eyes, visual disturbances, eye pain or Light sensitivity ENT ENT: No abnormal hearing, ear or mastoid pain, tinnitus, balance problems, nosebleed/epistaxis, nasal congestion, headache(s), neck pain or sore throat Resp Respiratory: No cough, excessive phlegm production, pain on inspiration, shortness of breath, snoring or wheezing Cardio Cardiology: No chest pain at rest, chest pain with exertion, excessive sweating, shortness of breath, dyspnea on exertion, lightheadedness, orthopnea or palpitations Gastro GI: No abdominal pain, change in bowel habits, constipation, cramping, diarrhea, nausea/dyspepsia or vomiting Genitourinary-Female: No burning urination, painful urination, urinary incontinence, urinary frequency, abnormal vaginal bleeding or pelvic pain Musc Musculoskeletal: No abnormal gait, joint pain, back pain, limited range of motion, neck pain or numbness Skin Skin: No dry skin, redness, excessive hair growth, yellowing of the eye, lesions, itchy eyes, rash or wounds Neuro Neurology: No abnormal gait, abnormal hearing, behavioral changes, unsteady gait/balance, weakness, frequent falls, headache(s), memory loss, numbness or visual disturbances Psych Psychiatric: No anxiety, No behavioral changes, No change in appetite, No depression, No memory loss and No Thoughts of harming yourself/Others Endo Endocrine: No cold intolerance, excessive sweating, fatigue, flushing, heat intolerance, increased thirst/drinking or increased hunger Aller/Imm Allergy/Immunologic: No itchy eyes, seasonal allergy symptoms, hives or wheezing Teja/Lymp Hematologic/Lymphatic : No easy bleeding, easy bruising, enl (more content not included)... Normal [facility] Surgery Visit Reporton 12-13 Surgery Visit Report [facility] [address] [place] [address] OFFICE VISIT Date of Service: 12/13/24 MR#: [id number] Acct: [id number] Name: MINDY CERDA Rep #: [id number] : 1985 Provider: Dr. 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 Eric Mistry MD) Cholelithiasis RUQ abdominal pain Preventative health care Wears contact lenses Wears glasses Alcohol use Arthritis Non-smoker Health care maintenance Breast pain, right Diarrhea Anemia Breast lump Surgical History History of lumpectomy Family History Mother Anemia Colon cancer Grandmother Hypertension Anemia Grandfather Parkinsons disease Social History number of children: 3 current occupational status: employed current occupation: [employer] Smoking Status: Never smoker alcohol intake: current alcohol intake frequency: a few times a week substance use type: does not use what type of physical activity do you participate in: walking frequency: daily seatbelt use: always do you feel safe at home: Yes HPI HPI HPI: Patient is a 39-year-old female here for cholelithiasis. She reports she does get periodic attacks which feel like sharp pain in the right upper quadrant that radiates to the back. That her last attack was 3 weeks ago. She denies nausea or vomiting or fevers or chills. ROS General General: Yes weight change; No appetite, fatigue, colon cancer, breast cancer or weakness HEENT HEENT: No difficulty swallowing, eye injury, eye surgery, swollen glands or hoarseness Endo Endocrine: No thyroid disease, diabetes mellitus, thyroid cancer, Hair loss, heat intolerance or cold intolerance Skin Skin: No rash or changing moles Musc Musculoskeletal: No back problems, arthritis, rheumatoid arthritis, gout or joint pain Cardio Cardiovascular: No murmur, pacemaker, heart disease, atrial fibrillation, high blood pressure, heart attack, heart stent, palpitations, shortness of breat with exertion or chest pain Psych Psychiatric: No depression, anxiety or hearing voices Gastro Gastrointestinal: Yes abdominal pain, No nausea or vomiting, No diarrhea, No constipation, No blood in stool, No acid reflux, No hemorrhoids, No ulcers, Yes gallbladder problem and No black,tarry stools Teja Hematologic: No blood thinners, No blood disorders, No bleeding, Yes anemia and No blood clots Neuro Neurologic: No numbness, No tingling and No weakness Exam Const General: cooperative Orientation: alert and oriented x3 HENMT Head: normal to inspection Neck Neck: normal visual inspection and full ROM Chest Chest palpation inspection: normal inspection of the chest Resp Effort Inspection: normal respiratory effort Auscultation: clear to auscultation bilaterally Cardio Rate: regular rate Rhythm: regular rhythm GI Inspection: non-distended Palpation: soft and nontender Skin General: no rashes or lesions noted Neuro General: patient alert and patient oriented x3 Extrem General: full ROM Psych Appearance: grossly normal Mental Status: mental status grossly normal Assessment and Plan Assessment and Plan (1) Cholelithiasis: Status: Acute Qualifiers: Cholelithiasis location: gallbladder Cholecystitis presence: without cholecystitis Biliary obstruction: without biliary obstruction Qualified Code(s): K80.20 - Calculus of gallbladder without cholecystitis without obstruction Plan: Patient is here due to cholelithiasis. She has been having right upper quadrant attacks which sound suspicious for biliary colic. The patient had an ultrasound which showed cholelithiasis. The patient has a lot of gallstones in her gall (more content not included)... Normal [facility] Abdomen Limitedon 12-08-2024 Abdomen Limited [facility] Services [address] [place] [id number] Abdomen Limited MR#: [id number] Acct: [id number] Name: MINDY CERDA Rep #: [id number] : 1985 F 39 From: Jordan mcintosh MD PCP: Dr. Óscar Mobley MD Status: REG CL Study: Abdomen Limited Date of Exam: 12/08/24 Exam# [id number] Ordering Dr: Óscar Mobley MD PROCEDURE: ABDOMEN LIMITED REASON FOR EXAM: Right upper quadrant pain. COMPARISON: None FINDINGS: Liver: The liver measures 14.8 cm. The echogenicity is within normal limits. Gallbladder: Multiple gallstones are seen. The gallbladder wall measures 1.3 mm. Common bile duct: 5.1 mm . Pancreas: The pancreas echotexture is echogenic. Visualized portions of the right kidney are unremarkable. No right upper quadrant ascites. US/Abdomen Limited IMPRESSION: CHOLELITHIASIS. Reading Location: [place] [address] CC: Dr. Óscar Mobley MD First Aid Instructor: Signed Normal [facility] Absolute neutrophil countOrd ered By: Samara Richmond on 12-04-2024 Neutrophils (Bld) [#/Vol] 5.2 10*3/uL 2.0-7.7 [facility] Basophil percentageOrdered B y: Samara Richmond on 12-04-2024 Basophils/100 WBC (Bld) 0.9 % 0-1 [facility] CBC W/Diff, Automatedon 11-09 Absolute Lymph 1.66 X10 3/uL Normal 0.83-4.51 [facility] Comment on above: Performed By: #### L 503.6550, L100.0100, L506.0250, L503.0105 #### [facility] [address] [place], [address] Absolute Neut 5.2 X10 3/uL Normal 2.0-7.7 [facility] Comment on above: Performed By: #### L 503.6550, L100.0100, L506.0250, L503.0105 #### [facility] [address] [place], [address] Basophils/100 WBC (Bld) 0.9 % Normal 0-1 [facility] Comment on above: Performed By: #### L 503.6550, L100.0100, L506.0250, L503.0105 #### [facility] [address] [place], [address] Eosinophils/100 WBC (Bld) 2.6 % Normal 0-5 [facility] Comment on above: Performed By: #### L 503.6550, L100.0100, L506.0250, L503.0105 #### [facility] [address] [place], [address] Erythrocyte distribution width (RBC) [Ratio] 13.8 % Normal 11.6-14.6 [facility] Comment on above: Performed By: #### L 503.6550, L100.0100, L506.0250, L503.0105 #### [facility] [address] [place], [address] Hematocrit (Bld) [Volume fraction] 39.4 % Normal 37-47 [facility] Comment on above: Performed By: #### L 503.6550, L100.0100, L506.0250, L503.0105 #### [facility] [address] [place], [address] Hemoglobin (Bld) [Mass/Vol] 12.8 g/dL Normal 12.0-15.0 [facility] Comment on above: Performed By: #### L 503.6550, L100.0100, L506.0250, L503.0105 #### [facility] [address] [place], [address] IG% 0.300 Normal 0.0-0.9 [facility] Comment on above: Result Comment: IG% - Immature Granulocytes (promyelocytes, myelocytes and metamyelocytes) > 1% indicates that a LEFT SHIFT is Present. Performed By: #### L 503.6550, L100.0100, L506.0250, L503.0105 #### [facility] [address] [place], [address] Lymphocytes/100 WBC (Bld) 20.9 % Normal 19-41 [facility] Comment on above: Performed By: #### L 503.6550, L100.0100, L506.0250, L503.0105 #### [facility] [address] [place], [address] MCH (RBC) [Entitic mass] 27.7 pg Normal 27.0-32.0 [facility] Comment on above: Performed By: #### L 503.6550, L100.0100, L506.0250, L503.0105 #### [facility] [address] [place], [address] MCHC (RBC) [Mass/Vol] 32.5 g/dL Normal 32-36 [facility] Comment on above: Performed By: #### L 503.6550, L100.0100, L506.0250, L503.0105 #### [facility] [address] [place], [address] MCV (RBC) [Entitic vol] 85.3 fL Normal 81-99 [facility] Comment on above: Performed By: #### L 503.6550, L100.0100, L506.0250, L503.0105 #### [facility] [address] [place], [address] Monocytes/100 WBC (Bld) 9.5 % Normal 0-10 [facility] Comment on above: Performed By: #### L 503.6550, L100.0100, L506.0250, L503.0105 #### [facility] [address] [place], [address] Neutrophils/100 WBC (Bld) 65.8 % Normal 47-70 [facility] Comment on above: Performed By: #### L 503.6550, L100.0100, L506.0250, L503.0105 #### [facility] [address] [place], [address] Nucleated RBC (Bld) [#/Vol] 0 10*3/uL Normal 0-5 [facility] Comment on above: Performed By: #### L 503.6550, L100.0100, L506.0250, L503.0105 #### [facility] [address] [place], [address] Platelet mean volume (Bld) [Entitic vol] 10.5 fL Normal 6.2-12.0 [facility] Comment on above: Performed By: #### L 503.6550, L100.0100, L506.0250, L503.0105 #### [facility] [address] [place], [address] Platelets (Bld) [#/Vol] 300 10*3/uL Normal 150-450 [facility] Comment on above: Performed By: #### L 503.6550, L100.0100, L506.0250, L503.0105 #### [facility] [address] [place], [address] RBC (Bld) [#/Vol] 4.62 10*6/uL Normal 4.2-5.4 [facility] Comment on above: Performed By: #### L 503.6550, L100.0100, L506.0250, L503.0105 #### [facility] [address] [place], [address] RDW SD 43.0 fl Normal 35.1-43.9 [facility] Comment on above: Performed By: #### L 503.6550, L100.0100, L506.0250, L503.0105 #### [facility] [address] [place], [address] WBC (Bld) [#/Vol] 8.0 10*3/uL Normal 4.4-11.0 [facility] Comment on above: Performed By: #### L 503.6550, L100.0100, L506.0250, L503.0105 #### [facility] [address] [place], [address] Eosinophil percentageOrdered By: Samara Richmond on 12-04-2024 Eosinophils/100 WBC (Bld) 2.6 % 0-5 [facility] Erythrocyte distribution wid th ratioOrdered By: Samara Richmond on 12-04-2024 Erythrocyte distribution width (RBC) [Ratio] 13.8 % 11.6-14.6 [facility] Erythrocyte distribution wid th standard deviationOrdered By: Samara Richmond on 12-04-2024 Erythrocyte distribution width (RBC) [Entitic vol] 43.0 fL 35.1-43.9 [facility] Ferritin measurementOrdered By: Samara Richmond on 12-04-2024 Ferritin [Mass/Vol] 6 ng/mL Low 8-252 [facility] Comment on above: Order Comment: N Performed By: #### L 503.6550, L100.0100, L506.0250, L503.0105 #### [facility] [address] [place], [place], [id number] Folates, (Folic Acid)on 11-09 FOLATES 35.40 ng/mL Normal 3.1-55.4 [facility] Comment on above: Order Comment: N Performed By: #### L 503.6550, L100.0100, L506.0250, L503.0105 ####[facility] [address] [place], [place], [id number] Folic acid measurementOrdere d By: Samara Richmond on 12-04-2024 Folate 35.40 ng/mL 3.1-55.4 [facility] Hematocrit Auto (Bld) [Volum e fraction]Ordered By: Samara Richmond on 12-04-2024 Hematocrit (Bld) [Volume fraction] 39.4 % 37-47 [facility] Hemoglobin measurementOrdere d By: Samara Richmond on 12-04-2024 Hemoglobin (Bld) [Mass/Vol] 12.8 g/dL 12.0-15.0 [facility] Immature granulocytes/100 WB C Auto (Bld)Ordered By: Samara Richmond on 12-04-2024 Immature granulocytes/100 WBC (Bld) 0.300 % 0.0-0.9 [facility] Comment on above: IG% - Immature Granu locytes (promyelocytes, myelocytes and metamyelocytes) > 1% indicates that a LEFT SHIFT is Present. Internal Medicine Office Vis jose raul 12-04-2024 Internal Medicine Office Visit [facility] [address] [place], [place] [address] OFFICE VISIT Date of Service: 12/04/24 MR#: [id number] Acct: [id number] Name: MINDY CERDA Rep #: [id number] : 1985 Provider: Dr. 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 states that her mother has a history of colon cancer. pt is concerned in this regard and would like to have workup. [facility] Medical History (Updated 12/04/24 @ 16:[address] Óscar Mobley MD) RUQ abdominal pain Preventative health care Wears contact lenses Wears glasses Alcohol use Arthritis Non-smoker Health care maintenance Breast pain, right Diarrhea Anemia Breast lump Surgical History History of lumpectomy Family History Mother Anemia Colon cancer Grandmother Hypertension Anemia Grandfather Parkinsons disease Social History number of children: 3 current occupational status: employed current occupation: [employer] Smoking Status: Never smoker alcohol intake: current alcohol intake frequency: a few times a week substance use type: does not use what type of physical activity do you participate in: walking frequency: daily seatbelt use: always do you feel safe at home: Yes HPI HPI Chief Complaint: Abdominal pain Details: MINDY CERDA, is a 39 F who presents to the office today for an acute visit. She reports abdominal pain which has been ongoing for several months. Intermittent. No known precipitating factor. Sometimes, worse with certain and occasionally improves with walking/stretching. No significant change in bowel or bladder habit. No nausea, vomiting or fever reported. ROS Const Constitutional: No body ache, chills, excessive sweating, fatigue, fever(s), frequent falls, headache(s), snoring, weight change, sleep problems, abnormal sleep pattern or change in appetite Eyes Eyes: No blurry vision, change in vision, bulging eyes, floaters, visual disturbances, eye pain or Light sensitivity ENT ENT: No abnormal hearing, ear or mastoid pain, tinnitus, balance problems, nosebleed/epistaxis, nasal congestion, headache(s), neck pain or sore throat Resp Respiratory: No cough, excessive phlegm production, pain on inspiration, shortness of breath, snoring or wheezing Cardio Cardiology: No chest pain at rest, chest pain with exertion, excessive sweating, shortness of breath, dyspnea on exertion, lightheadedness, orthopnea or palpitations Gastro GI: Positive for abdominal pain; No change in bowel habits, constipation, cramping, diarrhea, nausea/dyspepsia or vomiting Genitourinary-Female: No burning urination, painful urination, urinary incontinence, urinary frequency, abnormal vaginal bleeding or pelvic pain Musc Musculoskeletal: No abnormal gait, joint pain, back pain, limited range of motion, neck pain, numbness or tingling Skin Skin: No dry skin, redness, excessive hair growth, yellowing of the eye, lesions, itchy eyes, rash or wounds Neuro Neurology: No abnormal gait, abnormal hearing, behavioral changes, unsteady gait/balance, frequent falls, headache(s), memory loss, numbness, tingling or visual disturbances Psych Psychiatric: No abnormal sleep pattern, No anxiety, No behavioral changes, No change in appetite, No irritability, No memory loss and No Thoughts of harming yourself/Others Endo Endocrine: No cold intolerance, excessive sweating, fatigue, flushing, heat intolerance, increased thirst/drinking, increased hunger or weight change Aller/Imm Allergy/Immunologic: No itchy eyes, seasonal allergy symptoms, hives or wheezing Teja/Lymp Hematologic/Lymphatic : No easy bleeding, easy bruising, enlarged lymph nodes (more content not included)... Normal [facility] Lymphocytes Auto (Unsp spec) [#/Vol]Ordered By: Samara Richmond on 12-04-2024 Lymphocytes (Bld) [#/Vol] 1.66 10*3/uL 0.83-4.51 [facility] Lymphocytes/100 WBC Auto (Un sp spec)Ordered By: Samara Richmond on 12-04-2024 Lymphocytes/100 WBC (Bld) 20.9 % 19-41 [facility] MCV (mean corpuscular volume ) determinationOrdered By: aSmara Richmond on 12-04-2024 MCV (RBC) [Entitic vol] 85.3 fL 81-99 [facility] Mean corpuscular hemoglobin (MCH) determinationOrdered By: Samara Richmond on 12-04-2024 MCH (RBC) [Entitic mass] 27.7 pg 27.0-32.0 [facility] Mean corpuscular hemoglobin concentration (MCHC) determinationOrdered By: Samara Richmond on 12-04-2024 MCHC (RBC) [Mass/Vol] 32.5 g/dL 32-36 [facility] Mean platelet volume determi nationOrdered By: Samara Richmond on 12-04-2024 Platelet mean volume (Bld) [Entitic vol] 10.5 fL 6.2-12.0 [facility] Monocyte percentageOrdered B y: Samara Richmond on 12-04-2024 Monocytes/100 WBC (Bld) 9.5 % 0-10 [facility] Neutrophil percentageOrdered By: Samara Richmond on 12-04-2024 Neutrophils/100 WBC (Bld) 65.8 % 47-70 [facility] Nucleated red blood cell per centageOrdered By: Samara Richmond on 12-04-2024 Nucleated RBC/100 WBC (Bld) [Ratio] 0 % 0-5 [facility] Platelet countOrdered By: Johnna Richmond on 12-04-2024 Platelets (Bld) [#/Vol] 300 10*3/uL 150-450 [facility] RBC Auto (Bld) [#/Vol]Ordere d By: Samara Richmond on 12-04-2024 RBC (Bld) [#/Vol] 4.62 10*6/uL 4.2-5.4 [facility] Vitamin B12on 12-04-2024 Cobalamin (Vitamin B12) [Mass/Vol] 631 pg/mL Normal - [facility] Comment on above: Performed By: #### L 503.6550, L100.0100, L506.0250, L503.0105 #### [facility] [address] [place], [address] Vitamin B12 measurementOrder ed By: Samara Richmond on 12-04-2024 Cobalamin (Vitamin B12) [Mass/Vol] 631 pg/mL [facility] White blood cell (WBC) count Ordered By: Samara Richmond on 12-04-2024 WBC (Bld) [#/Vol] 8.0 10*3/uL 4.4-11.0 [facility] Internal Medicine Office Vis jose raul 07-06-2024 Internal Medicine Office Visit [facility] [address] [place] [address] [address] [place], [place] [address] OFFICE VISIT Date of Service: 07/06/24 MR#: [id number] Acct: [id number] Name: MINDY CERDA Rep #: [id number] : 1985 Provider: Dr. 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 Óscar Mobley MD) Preventative health care Wears contact lenses Wears glasses Alcohol use Arthritis Non-smoker Health care maintenance Breast pain, right Diarrhea Anemia Breast lump Surgical History History of lumpectomy Family History Mother Anemia Colon cancer Grandmother Hypertension Anemia Grandfather Parkinsons disease Social History number of children: 3 current occupational status: employed current occupation: [employer] Smoking Status: Never smoker alcohol intake: current alcohol intake frequency: a few times a week substance use type: does not use what type of physical activity do you participate in: walking frequency: daily seatbelt use: always do you feel safe at home: Yes HPI HPI Chief Complaint: PHYSICAL FOR WORK Details: MINDY CERDA, is a 38 F who presents to the office today for work physical. No acute concerns at this time. No significant changes in personal or family history since her last visit. Recently had a colonoscopy due to anemia with no acute concerns noted. Currently on iron supplements which she states that she has been taking consistently. History of uterine fibroids and heavy bleeds. No tobacco or alcohol abuse. Feels well otherwise. ROS Const Constitutional: No body ache, chills, excessive sweating, fatigue, fever(s), frequent falls, headache(s), snoring, weight change, sleep problems, abnormal sleep pattern or change in appetite Eyes Eyes: No blurry vision, change in vision, bulging eyes, floaters, visual disturbances, eye pain or Light sensitivity ENT ENT: No abnormal hearing, ear or mastoid pain, tinnitus, balance problems, nosebleed/epistaxis, nasal congestion, headache(s), neck pain or sore throat Resp Respiratory: No cough, excessive phlegm production, pain on inspiration, shortness of breath, snoring or wheezing Cardio Cardiology: No chest pain at rest, chest pain with exertion, excessive sweating, shortness of breath, dyspnea on exertion, lightheadedness, orthopnea or palpitations Gastro GI: No abdominal pain, change in bowel habits, constipation, cramping, diarrhea, nausea/dyspepsia or vomiting Genitourinary-Female: No burning urination, painful urination, urinary incontinence, urinary frequency, suprapubic fullness, side pain, abnormal vaginal bleeding or pelvic pain Musc Musculoskeletal: No abnormal gait, joint pain, back pain, limited range of motion, muscle cramps, neck pain, numbness or tingling Skin Skin: No dry skin, redness, excessive hair growth, yellowing of the eye, lesions, itchy eyes, rash or wounds Neuro Neurology: No abnormal gait, abnormal hearing, behavioral changes, unsteady gait/balance, frequent falls, headache(s), memory loss, numbness, tingling or visual disturbances Psych Psychiatric: No abnormal sleep pattern, No anxiety, No behavioral changes, No change in appetite, No irritability, No memory loss and No Thoughts of harming yourself/Others Endo Endocrine: No cold intolerance, excessive sweating, fatigue, flushing, heat intolerance, increased thirst/drinking, increased hunger or weight change Aller/Imm Allergy/Immunologic: No itchy eyes, seasonal allergy symptoms, hives or wheezing Teja/Lymp Hematologic/Lymphatic : No easy bleeding, easy bruising, enlarged lymph nodes or other Exam Const General: cooperative, comfortable and no acute distress Orientation: alert, awake and oriented x3 HENMT Head: normal to inspection, normocephalic and atraumatic Ears: hearing grossly normal bilater (more content not included)... Normal [facility] Colonoscopy Reporton 024 Colonoscopy Report [facility] Medical Records Department [address] [place] [address] Colonoscopy Report MR#: [id number] Acct: [id number] Name: MINDY CERDA Rep #: [id number] : 1985 38 From: Jordan Painting DO PCP: Dr. Óscar Mobley MD [place] Patient Name: Mindy Cerda Procedure Date: 06/30/2024 6:50 AM Date of : 1985 Age: 38 Procedure: Colonoscopy Indications: Screening in patient at increased risk: Family history of 1st-degree relative with colorectal cancer before age 60 years Providers: Jordan Painting DO Medicines: Monitored Anesthesia Care Patient Profile: This is a 38 year old female. Refer to note in patient chart for documentation of history and physical. Last Colonoscopy: none. The patient's first colonoscopy is today. Complications: No immediate complications. Procedure: Pre-Anesthesia Assessment: - Prior to the procedure, a History and Physical was performed, and patient medications and allergies were reviewed. The patient is competent. The risks and benefits of the procedure and the sedation options and risks were discussed with the patient. All questions were answered and informed consent was obtained. Patient identification and proposed procedure were verified by the physician in the pre-procedure area. Mental Status Examination: alert and oriented. Airway Examination: normal oropharyngeal airway and neck mobility. Respiratory Examination: clear to auscultation. CV Examination: normal. Prophylactic Antibiotics: The patient does not require prophylactic antibiotics. Prior Anticoagulants: The patient has taken no anticoagulant or antiplatelet agents. ASA Grade Assessment: II - A patient with mild systemic disease. After reviewing the risks and benefits, the patient was deemed in satisfactory condition to undergo the procedure. The anesthesia plan was to use monitored anesthesia care (MAC). Immediately prior to administration of medications, the patient was re-assessed for adequacy to receive sedatives. The heart rate, respiratory rate, oxygen saturations, blood pressure, adequacy of pulmonary ventilation, and response to care were monitored throughout the procedure. The physical status of the patient was re-assessed after the procedure. After I obtained informed consent, the scope was passed under direct vision. Throughout the procedure, the patient's blood pressure, pulse, and oxygen saturations were monitored continuously. The Colonoscope was introduced through the anus and advanced to the cecum, identified by the appendiceal orifice, ileocecal valve and palpation. The colonoscopy was performed without difficulty. The patient tolerated the procedure well. The quality of the bowel preparation was adequate. The ileocecal valve, appendiceal orifice, and rectum were photographed. Scope In: 7:03:03 AM Scope Withdrawal Time 0 hours 13 minutes 20 seconds Scope Out: 7:24:26 AM Total Procedure Duration Time 0 hours 21 minutes 23 seconds Findings: The perianal and digital rectal examinations were normal. Three pedunculated and sessile polyps were found in the sigmoid colon, ascending colon and appendiceal orifice. The polyps were 1 to 2 mm in size. These polyps were removed with a hot snare. Resection and retrieval were complete. Verification of patient identification for the specimen was done. Estimated blood loss was minimal. The exam was otherwise without abnormality on direct and retroflexion views. Impression: - Three 1 to 2 mm polyps in the sigmoid colon, in the ascending colon and at the appendiceal orifice, removed with a hot snare. Resected and retrieved. - The examination was otherwise normal on direct and retroflexion views. Recommendation: - Discharge patient to home. - Resume previous diet. - Continue present medications. - Await pathology results. - Repeat colonoscopy in 3 years for surveillance. Procedure Code(s): --- Professional --- 28871, Colonoscopy, flexible; with removal of tumor(s), polyp(s), or other lesion(s) by snare technique CPT copyright 2021 [employer]. All rights reserved. The codes documented in this report are preliminary and upon physician coder review may be revised to meet current compliance requirements. Jordan Painting DO 06/30/2024 7:31:58 AM This report has been signed electronically. Number of Addenda: 0 Note Initiated On: 06/30/2024 6:50 AM 06/30/24 0732 Date Jordan Zeng Signature: Date (if indicated) CC: Dr. Óscar Mobley MD; Jordan Painting DO Date Dictated: 06/30/2450 Date Transcribed: First Aid Instructor: JOSE CARLOS Signed [facility] MR/POSTOP.ANEon 06-30-2024 MR/POSTOP.[facility] Medical Records Department [address] [facility] [place] [address] Anesthesia Postop Eval I 06/30/2432 MR#: [id number] Acct: [id number] Name: MINDY CERDAE Rep #: [id number] : 1985 38 From: Warner Valera PCP: Dr. Óscar Mobley MD [place] [place] Race: C Location: [place] [address] Anesthesia: Postop Eval I Current Vital Signs Temperature: 97.9 F Pulse Rate: 74 Blood Pressure: 95/67 Respiratory Rate: 16 Pulse Ox: 99 Oxygen Delivery Method: Room Air Assessment Airway patent: Yes Spontaneous unlabored respirations: Yes Mental status: Asleep nausea: No Vomiting: No Anesthesia Complication: No Fluid Hydration Crystalloid volume administer (ml): 800 Total IV fluid infused: 800 Progress Note Anesthesia document: Postop Eval 1 completed: Yes 06/30/24732 Date Warner Saenz Signature: Date CC: Signed [facility] MR/HHEVOLSZ0tp 06-30-2024 MR/POSTOPAN2 [facility] Medical Records Department [address] [place] [address] Anesthesia Postop Eval II 06/30/2441 MR#: [id number] Acct: [id number] Name: SONIABRAYDENNAJMA NESS Rep #: [id number] : 1985 38 From: George Merrill MD PCP: Dr. Óscar Mobley MD Status:REG [facility] Y Race: C Location: [place] [address]- Anesthesia Postop Eval I Sum Postop Eval Completion status Anesthesia document: Postop Eval 1 completed: Yes Anesthesia Postop Eval I Summary Anesthesia Postop Eval I Summary: Anesthesia Postop Eval I: Assessment Summary Airway patent Yes 06/30/24 07:33 [email or web address] Spontaneous unlabored Yes 06/30/24 07:33 [email or web address] respirations Mental status Asleep 06/30/24 07:33 [email or web address] nausea No 06/30/24 07:33 [email or web address] Vomiting No 06/30/24 07:33 [email or web address] Anesthesia Postop Eval I: Fluid Summary Crystalloid volume administer 800 06/30/24 07:33 [email or web address] (ml) Colloids volume administered ( ml) Blood Product volume administered (ml) Total IV fluid infused 800 06/30/24 07:33 [email or web address] Anesthesia Postop Eval I: Summary Notes Anesthesia Complication No 06/30/24 07:33 [email or web address] Anesthesia Complication Comment: Post-operative progress note Anesthesia: Postop Eval II Evaluation Mental status: Awake Pain Level: 0 nausea: No Vomiting: No 06/30/24 0741 Date George Merrill MD Cosign Signature: Date CC: Signed Normal [facility] ,Urineon 06-30-2024 Beta HCG ( test) Ql (U) Negative Normal [facility] Comment on above: Result Comment: Very dilute urine specimens, as indicated by a low specific gravity, may not contain telephone service representative levels of hCG. If is still suspected, a first morning urine specimen should be collected 48 hours later and tested. Performed By: #### L 400.7600 ####[facility] [address] [place], [address] Surgery Specimen Level Gurdeep 06-30-2024 Surgery Specimen Level IV -------- Patient Age/Sex Location Account Attending Physician -------- MINDY CERDA 38/F INGRID [id number] Jordan Painting DO -------- Specimen: [id number] Received: 06/30/24 Status: YU Vargas Num: [id number] Spec Type: COLON BX Subm Dr: Jordan Painting DO HEADER OPERATION: Colonoscopy, polypectomy PRE-OP DIAGNOSIS: Anemia TISSUE SUBMITTED: A- Ascending colon polyp, B- Appendicle orifice polyp, C- Sigmoid colon polyp -------- MICROSCOPIC DIAGNOSIS A. Ascending colon polyp, biopsy: Fragments of hyperplastic polyp. See comment. B. Polyp at appendiceal orifice, biopsy: Fragments of hyperplastic polyp. C. Sigmoid colon polyp, biopsy: Inflammatory polyp with mucosal denudation. / 07/03/2024 COMMENT A. The specimen contains fragments of mature adipose tissue with benign perilymphoid tissue. Clinical correlation is suggested. MICROSCOPIC DESCRIPTION Slides are reviewed. GROSS DESCRIPTION A. Received in fixative is one container labeled with the patient's name and designated Ascending colon polyp. The specimen consists of multiple irregular fragments of light bush soft tissue that in aggregate measure 2.0 x 0.7 x 0.2 cm. The specimen is totally submitted in one cassette. B. Received in fixative is one container labeled with the patient's name and designated Appendicle orifice polyp. The specimen consists of multiple irregular fragments of light bush soft tissue that in aggregate measure 1.0 x 0.2 x 0.1 cm. The specimen is totally submitted in one cassette. C. Received in fixative is one container labeled with the patient's name and designated Sigmoid colon polyp. The specimen consists of a bush-pink polyp measuring 0.4 x 0.4 x 0.2cm. The entire specimen is submitted in one cassette. . 06/30/2024 TC:5 [facility]:[id number] -------- Patient Age/Sex Location Account Attending Physician -------- MINDY CERDA 38/F EN [id number] Jordan Painting DO -------- Signed (signature on file) Dr. Dawson Barbour, DO 07/03/24 1144 -------- Normal [facility] Comment on above: Performed By: #### P SUIV #### [facility] [address] [place], [address] L5500.0550on 06-10-2024 BEEF <0.10 Normal Class 0 [facility] Comment on above: Performed By: #### L 503.0105, L501.6710, L3410.2400, L506.0250, L5500.0550, L503.6150, L503.6550, L503.6075, L101.9900 ####[facility] [address] [place], [address] CHOCOLATE <0.10 Normal Class 0 [facility] Comment on above: Performed By: #### L 503.0105, L501.6710, L3410.2400, L506.0250, L5500.0550, L503.6150, L503.6550, L503.6075, L101.9900 ####[facility] [address] [place], [address] CODFISH <0.10 Normal Class 0 [facility] Comment on above: Performed By: #### L 503.0105, L501.6710, L3410.2400, L506.0250, L5500.0550, L503.6150, L503.6550, L503.6075, L101.9900 ####[facility] [address] [place], [address] COMMENT Comment Normal . [facility] Comment on above: Result Comment: Sedrick marie of Specific IgE Class Description of Class ----- < 0.10 0 Negative 0.10 - 0.31 0/I Equivocal/Low 0.32 - 0.55 I Low 0.56 - 1.40 II Moderate 1.41 - 3.90 III High 3.91 - 19.00 IV Very High 19.01 - 100.00 V Very High >100.00 Very High Performed By: #### L 503.0105, L501.6710, L3410.2400, L506.0250, L5500.0550, L503.6150, L503.6550, L503.6075, L101.9900 ####[facility] [address] [place], [address] CORN <0.10 Normal Class 0 [facility] Comment on above: Performed By: #### L 503.0105, L501.6710, L3410.2400, L506.0250, L5500.0550, L503.6150, L503.6550, L503.6075, L101.9900 ####[facility] [address] [place], [place], [id number] EGG, WHOLE <0.10 Normal Class 0 [facility] Comment on above: Result Comment: Perf ormed at: [address] [id number] [employer] Superintendent: Aster Garcia MD, Phone: [phone] Performed By: #### L 503.0105, L501.6710, L3410.2400, L506.0250, L5500.0550, L503.6150, L503.6550, L503.6075, L101.9900 ####[facility] [address] [place], [place], [phone](368) MILK (COW) <0.10 Normal Class 0 [facility] Comment on above: Performed By: #### L 503.0105, L501.6710, L3410.2400, L506.0250, L5500.0550, L503.6150, L503.6550, L503.6075, L101.9900 ####[facility] [address] [place], [place], [phone]) MUSSELS <0.10 Normal Class 0 [facility] Comment on above: Performed By: #### L 503.0105, L501.6710, L3410.2400, L506.0250, L5500.0550, L503.6150, L503.6550, L503.6075, L101.9900 ####[facility] [address] [place], [address] PEANUT <0.10 Normal Class 0 [facility] Comment on above: Performed By: #### L 503.0105, L501.6710, L3410.2400, L506.0250, L5500.0550, L503.6150, L503.6550, L503.6075, L101.9900 ####[facility] [address] [place], [place], [phone]) PORK <0.10 Normal Class 0 [facility] Comment on above: Performed By: #### L 503.0105, L501.6710, L3410.2400, L506.0250, L5500.0550, L503.6150, L503.6550, L503.6075, L101.9900 ####[facility] [address] [place], [address] SALMON <0.10 Normal Class 0 [facility] Comment on above: Performed By: #### L 503.0105, L501.6710, L3410.2400, L506.0250, L5500.0550, L503.6150, L503.6550, L503.6075, L101.9900 ####[facility] [address] [place], [address] SHRIMP <0.10 Normal Class 0 [facility] Comment on above: Performed By: #### L 503.0105, L501.6710, L3410.2400, L506.0250, L5500.0550, L503.6150, L503.6550, L503.6075, L101.9900 ####[facility] [address] [place], [address] SOYBEAN <0.10 Normal Class 0 [facility] Comment on above: Performed By: #### L 503.0105, L501.6710, L3410.2400, L506.0250, L5500.0550, L503.6150, L503.6550, L503.6075, L101.9900 ####[facility] [address] [place], [address] TUNA <0.10 Normal Class 0 [facility] Comment on above: Performed By: #### L 503.0105, L501.6710, L3410.2400, L506.0250, L5500.0550, L503.6150, L503.6550, L503.6075, L101.9900 ####[facility] [address] [place], [address] WHEAT <0.10 Normal Class 0 [facility] Comment on above: Performed By: #### L 503.0105, L501.6710, L3410.2400, L506.0250, L5500.0550, L503.6150, L503.6550, L503.6075, L101.9900 ####[facility] [address] [place], [place], [id number] Celiac Disease Profileon ENDOMYSIAL IGA Negative Normal Negative [facility] Comment on above: Performed By: #### L 503.0105, L501.6710, L3410.2400, L506.0250, L5500.0550, L503.6150, L503.6550, L503.6075, L101.9900 ####[facility] [address] [place], [place], [id number] IMMUNOGLOB A QN 261 mg/dL Normal 87-352 [facility] Comment on above: Result Comment: Perf ormed at: - [facility] [address] [id number] [employer] Superintendent: Calvin Perdomo PhD, Phone: [phone] Performed By: #### L 503.0105, L501.6710, L3410.2400, L506.0250, L5500.0550, L503.6150, L503.6550, L503.6075, L101.9900 ####[facility] [address] [place], [place], [id number] tTG IGA <2 Normal 0-3 [facility] Comment on above: Result Comment: Nega tive 0 - 3 Weak Positive 4 - 10 Positive >10 Tissue Transglutaminase (tTG) has been identified as the endomysial antigen. Studies have demonstr- ated that endomysial IgA antibodies have over 99% specificity for gluten sensitive enteropathy. Performed By: #### L 503.0105, L501.6710, L3410.2400, L506.0250, L5500.0550, L503.6150, L503.6550, L503.6075, L101.9900 ####[facility] [address] [place], [address] CBC W/Diff, Automatedon 07-3 0-2023 Absolute Lymph 1.31 X10 3/uL Normal 0.83-4.51 [facility] Comment on above: Performed By: #### L 501.9520, L100.0100, L506.0400, L506.1000, L500.4100, L500.4050 ####[facility] [address] [place], [address] Absolute Neut 6.1 X10 3/uL Normal 2.0-7.7 [facility] Comment on above: Performed By: #### L 501.9520, L100.0100, L506.0400, L506.1000, L500.4100, L500.4050 ####[facility] [address] [place], [address] Basophils/100 WBC (Bld) 0.7 % Normal 0-1 [facility] Comment on above: Performed By: #### L 501.9520, L100.0100, L506.0400, L506.1000, L500.4100, L500.4050 ####[facility] [address] [place], [address] Eosinophils/100 WBC (Bld) 3.2 % Normal 0-5 [facility] Comment on above: Performed By: #### L 501.9520, L100.0100, L506.0400, L506.1000, L500.4100, L500.4050 ####[facility] [address] [place], [address] Erythrocyte distribution width (RBC) [Ratio] 17.2 % High 11.6-14.6 [facility] Comment on above: Performed By: #### L 501.9520, L100.0100, L506.0400, L506.1000, L500.4100, L500.4050 ####[facility] [address] [place], [address] Hematocrit (Bld) [Volume fraction] 35.8 % Low 37-47 [facility] Comment on above: Performed By: #### L 501.9520, L100.0100, L506.0400, L506.1000, L500.4100, L500.4050 ####[facility] [address] [place], [address] Hemoglobin (Bld) [Mass/Vol] 10.8 g/dL Low 12.0-15.0 [facility] Comment on above: Performed By: #### L 501.9520, L100.0100, L506.0400, L506.1000, L500.4100, L500.4050 ####[facility] [address] [place], [address] IG% 1.600 High 0.0-0.9 [facility] Comment on above: Result Comment: IG% - Immature Granulocytes (promyelocytes, myelocytes and metamyelocytes) > 1% indicates that a LEFT SHIFT is Present. Performed By: #### L 501.9520, L100.0100, L506.0400, L506.1000, L500.4100, L500.4050 ####[facility] [address] [place], [address] Lymphocytes/100 WBC (Bld) 15.1 % Low 19-41 [facility] Comment on above: Performed By: #### L 501.9520, L100.0100, L506.0400, L506.1000, L500.4100, L500.4050 ####[facility] [address] [place], [address] MCH (RBC) [Entitic mass] 22.7 pg Low 27.0-32.0 [facility] Comment on above: Performed By: #### L 501.9520, L100.0100, L506.0400, L506.1000, L500.4100, L500.4050 ####[facility] [address] [place], [address] MCHC (RBC) [Mass/Vol] 30.2 g/dL Low 32-36 [facility] Comment on above: Performed By: #### L 501.9520, L100.0100, L506.0400, L506.1000, L500.4100, L500.4050 ####[facility] [address] [place], [address] MCV (RBC) [Entitic vol] 75.4 fL Low 81-99 [facility] Comment on above: Performed By: #### L 501.9520, L100.0100, L506.0400, L506.1000, L500.4100, L500.4050 ####[facility] [address] [place], [address] Monocytes/100 WBC (Bld) 8.8 % Normal 0-10 [facility] Comment on above: Performed By: #### L 501.9520, L100.0100, L506.0400, L506.1000, L500.4100, L500.4050 ####[facility] [address] [place], [address] Neutrophils/100 WBC (Bld) 70.6 % High 47-70 [facility] Comment on above: Performed By: #### L 501.9520, L100.0100, L506.0400, L506.1000, L500.4100, L500.4050 ####[facility] [address] [place], [address] Nucleated RBC (Bld) [#/Vol] 0 10*3/uL Normal 0-5 [facility] Comment on above: Performed By: #### L 501.9520, L100.0100, L506.0400, L506.1000, L500.4100, L500.4050 ####[facility] [address] [place], [address] Platelet mean volume (Bld) [Entitic vol] 10.9 fL Normal 6.2-12.0 [facility] Comment on above: Performed By: #### L 501.9520, L100.0100, L506.0400, L506.1000, L500.4100, L500.4050 ####[facility] [address] [place], [address] Platelets (Bld) [#/Vol] 343 10*3/uL Normal 150-450 [facility] Comment on above: Performed By: #### L 501.9520, L100.0100, L506.0400, L506.1000, L500.4100, L500.4050 ####[facility] [address] [place], [address] RBC (Bld) [#/Vol] 4.75 10*6/uL Normal 4.2-5.4 [facility] Comment on above: Performed By: #### L 501.9520, L100.0100, L506.0400, L506.1000, L500.4100, L500.4050 ####[facility] [address] [place], [address] RDW SD 46.4 fl High 35.1-43.9 [facility] Comment on above: Performed By: #### L 501.9520, L100.0100, L506.0400, L506.1000, L500.4100, L500.4050 ####[facility] [address] [place], [address] WBC (Bld) [#/Vol] 8.7 10*3/uL Normal 4.4-11.0 [facility] Comment on above: Performed By: #### L 501.9520, L100.0100, L506.0400, L506.1000, L500.4100, L500.4050 ####[facility] [address] [place], [address] CRPon 06-06-2024 C-REACTIVE PROT < 2.90 Normal 0.0-3.0 [facility] Comment on above: Order Comment: N Result Comment: C-Re active Protein (CRP) provides useful information for the diagnosis, therapy and monitoring of inflammatory processes and associated diseases. For the evaluation of Relative Risk for Cardiovascular Disease, a High Sensitivity CRP (HSCRP) should be ordered. Performed By: #### L 503.0105, L501.6710, L3410.2400, L506.0250, L5500.0550, L503.6150, L503.6550, L503.6075, L101.9900 ####[facility] [address] [place], [address] Comprehensive Metabolic Prof ilon 06-06-2024 Albumin [Mass/Vol] 4.0 g/dL Normal 3.2-5.0 [facility] Comment on above: Performed By: #### L 501.9520, L100.0100, L506.0400, L506.1000, L500.4100, L500.4050 ####[facility] [address] [place], [address] Albumin/Globulin [Mass ratio] 1.0 {ratio} Normal 0.9-2.4 [facility] Comment on above: Performed By: #### L 501.9520, L100.0100, L506.0400, L506.1000, L500.4100, L500.4050 ####[facility] [address] [place], [address] ALK P 46 U/L Normal 45-117 [facility] Comment on above: Performed By: #### L 501.9520, L100.0100, L506.0400, L506.1000, L500.4100, L500.4050 ####[facility] [address] [place], [address] ALT [Catalytic activity/Vol] 15 U/L Normal 13-56 [facility] Comment on above: Performed By: #### L 501.9520, L100.0100, L506.0400, L506.1000, L500.4100, L500.4050 ####[facility] [address] [place], [address] AST [Catalytic activity/Vol] 12 U/L Low 15-37 [facility] Comment on above: Performed By: #### L 501.9520, L100.0100, L506.0400, L506.1000, L500.4100, L500.4050 ####[facility] [address] [place], [address] Bilirubin [Mass/Vol] 0.40 mg/dL Normal 0.20-1.00 [facility] Comment on above: Result Comment: For patients on eltrombopag therapy, use of Dimension [place] TBIL is not recommended. Performed By: #### L 501.9520, L100.0100, L506.0400, L506.1000, L500.4100, L500.4050 ####[facility] [address] [place], [address] BUN/CRE 12.5 RATIO Normal 10-20 [facility] Comment on above: Performed By: #### L 501.9520, L100.0100, L506.0400, L506.1000, L500.4100, L500.4050 ####[facility] [address] [place], [address] CA,Total 8.7 mg/dL Normal 8.5-10.1 [facility] Comment on above: Performed By: #### L 501.9520, L100.0100, L506.0400, L506.1000, L500.4100, L500.4050 ####[facility] [address] [place], [address] Chloride [Moles/Vol] 105 mmol/L Normal 98-107 [facility] Comment on above: Performed By: #### L 501.9520, L100.0100, L506.0400, L506.1000, L500.4100, L500.4050 ####[facility] [address] [place], [address] CO2 [Moles/Vol] 25.0 mmol/L Normal 21.0-32.0 [facility] Comment on above: Performed By: #### L 501.9520, L100.0100, L506.0400, L506.1000, L500.4100, L500.4050 ####[facility] [address] [place], [address] Creatinine [Mass/Vol] 0.64 mg/dL Normal 0.55-1.02 [facility] Comment on above: Result Comment: The validity of the calculated GFR GFRAA in patients over 70 years has not been determined. Clinical correlation is essential. Performed By: #### L 501.9520, L100.0100, L506.0400, L506.1000, L500.4100, L500.4050 ####[facility] [address] [place], [address] EST GFR - AA 134 mL/min Normal >60 [facility] Comment on above: Result Comment: Afri can Japanese GFR Calc Performed By: #### L 501.9520, L100.0100, L506.0400, L506.1000, L500.4100, L500.4050 ####[facility] [address] [place], [address] GAP 7 Normal 5-15 [facility] Comment on above: Performed By: #### L 501.9520, L100.0100, L506.0400, L506.1000, L500.4100, L500.4050 ####[facility] [address] [place], [address] GFR/1.73 sq M.predicted among non-blacks MDRD (S/P/Bld) [Vol rate/Area] 111 mL/min/{1.73_m2} Normal >60 [facility] Comment on above: Result Comment: Non- GFR Calc Performed By: #### L 501.9520, L100.0100, L506.0400, L506.1000, L500.4100, L500.4050 ####[facility] [address] [place], [address] Globulin (S) [Mass/Vol] 3.9 g/dL Normal 2.2-4.2 [facility] Comment on above: Performed By: #### L 501.9520, L100.0100, L506.0400, L506.1000, L500.4100, L500.4050 ####[facility] [address] [place], [address] Glucose [Mass/Vol] 85 mg/dL Normal 74-106 [facility] Comment on above: Performed By: #### L 501.9520, L100.0100, L506.0400, L506.1000, L500.4100, L500.4050 ####[facility] [address] [place], [address] Potassium [Moles/Vol] 3.6 mmol/L Normal 3.5-5.1 [facility] Comment on above: Performed By: #### L 501.9520, L100.0100, L506.0400, L506.1000, L500.4100, L500.4050 ####[facility] [address] [place], [address] Sodium [Moles/Vol] 137 mmol/L Normal 136-145 [facility] Comment on above: Performed By: #### L 501.9520, L100.0100, L506.0400, L506.1000, L500.4100, L500.4050 ####[facility] [address] [place], [address] T PROT 7.9 g/dL Normal 6.4-8.2 [facility] Comment on above: Performed By: #### L 501.9520, L100.0100, L506.0400, L506.1000, L500.4100, L500.4050 ####[facility] [address] [place], [address] Urea nitrogen [Mass/Vol] 8 mg/dL Normal 7-18 [facility] Comment on above: Performed By: #### L 501.9520, L100.0100, L506.0400, L506.1000, L500.4100, L500.4050 ####[facility] [address] [place], [address] Erythrocyte Sed Rateon 06-06 SED RATE 8 mm/hr Normal 0-30 [facility] Comment on above: Performed By: #### L 503.0105, L501.6710, L3410.2400, L506.0250, L5500.0550, L503.6150, L503.6550, L503.6075, L101.9900 ####[facility] [address] [place], [address] Ferritinon 06-06-2024 Ferritin [Mass/Vol] 4 ng/mL Low 8-252 [facility] Comment on above: Order Comment: N Performed By: #### L 503.0105, L501.6710, L3410.2400, L506.0250, L5500.0550, L503.6150, L503.6550, L503.6075, L101.9900 ####[facility] [address] [place], [address] Folates, (Folic Acid)on 05-10 FOLATES 37.70 ng/mL Normal 3.1-55.4 [facility] Comment on above: Order Comment: N Performed By: #### L 503.0105, L501.6710, L3410.2400, L506.0250, L5500.0550, L503.6150, L503.6550, L503.6075, L101.9900 ####[facility] [address] [place], [address] Gastroenterology Visit Repor ton 06-06-2024 Gastroenterology Visit Report [facility] [address] [place] [address] OFFICE VISIT Date of Service: 06/06/24 MR#: [id number] Acct: [id number] Name: MINDY CERDA Rep #: [id number] : 1985 Provider: JIMI Bradley Age/Sex: 38/F Location: [facility] Status: Signed Intake Vital Signs 05/03/24 11:52 06/06/24 08:09 Height 5 ft 4 in Weight: 165 lb 5 oz BP 121/74 H Pulse 91 Pulse Oximetry (%) 98 Intake Visit Reasons: Anemia Chief Complaint: Anemia Allergies venom-honey bee Allergy (Intermediate, Verified 05/03/24 11:48) Swelling Nurse's Note: OV 06.08.24 Pt here f/u for anemia, and would like screening colonoscopy. Pt reports having formed BM daily. Denies blood in stool. pt takes a multivitamin daily. [facility] Medical History Health care maintenance Breast pain, right Diarrhea Anemia Breast lump Surgical History History of lumpectomy Family History Mother Anemia Colon cancer Grandmother Hypertension Anemia Grandfather Parkinsons disease Social History (Updated 05/03/24 @ 11:51 by Mckenzie Treviño) number of children: 3 current occupational status: employed current occupation: [employer] Smoking Status: Never smoker alcohol intake: current alcohol intake frequency: a few times a week substance use type: does not use what type of physical activity do you participate in: walking frequency: daily seatbelt use: always do you feel safe at home: Yes HPI HPI Chief Complaint: Anemia Details: MINDY CERDA, is a 38 F who presents to the office today for establishment with [facility]. She has a long history of having iron deficient anemia. 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 Her 62 yo mother was recently diagnosed with colon cancer and underwent partial colectomy and chemotherapy. She is concerned about developing colon cancer with her family history. She mentions she has always had right lower quadrant pain and feeling of incomplete evacuation with bowel movements. She has a bm at least once a day but feels it is incomplete. She has also noticed having some urgency after eating certain foods like sauce or foods with tomatoes. She has never been tested for food allergies. She has alot of gas that she will massage out her abdomen to relive. She feels fatigued and has brain fog. She denies alarm symptoms like weight loss, fever, or blood in her stool. She denies diarrhea, heartburn, and n/v. ROS Const Constitutional: Positive for fatigue and weight change; No fever(s) ENT ENT: No difficulty swallowing Gastro GI: Positive for abdominal pain, bloating, heartburn and excessive flatus; No belching, change in bowel habits, change in stool character, coffee ground emesis, constipation, cramping, diarrhea, difficulty swallowing, feeling full early, incontinent of stools, Vomiting blood/hematemesis, Blood in stool, loose stools, Black,tarry stools, nausea/dyspepsia, pain with swallowing, vomiting or other Musc Musculoskeletal: No joint pain Skin Skin: No yellowing of the eye or itchy eyes Psych Psychiatric: No anxiety and No depression Endo Endocrine: Positive for fatigue and weight change Aller/Imm Allergy/Immunologic: No itchy eyes Teja/Lymp Hematologic/Lymphatic : No easy bleeding or easy bruising Exam Const General: cooperative and comfortable Nutritional Appearance: average body habitus and well nourished HENKS Head: normal to inspection Ears: hearing grossly normal bilaterally Nose: external nose normal Face and sinus: normal facial exam Mouth: oral mucosae normal Throat: posterior oropharynx normal Eyes General: appearance normal, both eyes and all related structures Neck Neck: normal visual inspection Chest Chest palpation inspection: normal inspection of the chest and normal palpation of entire chest wall Resp Effort Inspection: normal respiratory effort Auscultation: Bilateral: Clear to Auscultation Cardio Palpation: normal PMI Rate: regular rate Rhythm: regular rhythm GI Inspection: normal to inspection Auscultation: normal bowel sounds Percussion: normal to percussion Palpation: no hepatosplenomegaly Skin General: no rashes or lesions noted Neuro General: patient alert Extrem General: normal to inspection Psych Affect: normal affect Assessment and Plan Assessment and Plan (1) Anemia: Status: Chronic Qualifiers: Anemia type: iron deficiency Iron deficiency anemia type: unspecified iron deficiency Qualified Code(s): D50.9 - Iron deficiency anemia, unspecified Plan: Patient is here today for establishment with [facility]. She has a hx of anemia, abdominal pain, and family hx of colon can (more content not included)... Normal [facility] Ironon 06-06-2024 Iron [Mass/Vol] 22 ug/dL Low 50-170 [facility] Comment on above: Order Comment: N Performed By: #### L 503.0105, L501.6710, L3410.2400, L506.0250, L5500.0550, L503.6150, L503.6550, L503.6075, L101.9900 ####[facility] [address] [place], [place], [id number] Iron Binding Capacity,Totalo n 06-06-2024 TIBC 425 ug/dL Normal 250-450 [facility] Comment on above: Order Comment: N Performed By: #### L 503.0105, L501.6710, L3410.2400, L506.0250, L5500.0550, L503.6150, L503.6550, L503.6075, L101.9900 ####[facility] [address] [facility] [place], [place], [id number] Lipid Profileon 06-06-2024 Cholesterol [Mass/Vol] 153 mg/dL Normal [address] [facility] Comment on above: Result Comment: <200 mg/dL Desirable 200-240 mg/dL Borderline >240 mg/dL High Risk Performed By: #### L 501.9520, L100.0100, L506.0400, L506.1000, L500.4100, L500.4050 ####[facility] [address] [place], [address] Cholesterol in HDL [Mass/Vol] 48 mg/dL Normal [facility] Comment on above: Result Comment: The drugs N-Acetylcysteine and Metamizole may falsely depress this assay. Reference Range HDL <40 mg/dL Low HDL Cholesterol HDL >or= 60 mg/dL High HDL Cholesterol Performed By: #### L 501.9520, L100.0100, L506.0400, L506.1000, L500.4100, L500.4050 ####[facility] [address] [place], [address] Cholesterol in LDL [Mass/Vol] 92 mg/dL Normal 0-130 [facility] Comment on above: Performed By: #### L 501.9520, L100.0100, L506.0400, L506.1000, L500.4100, L500.4050 ####[facility] [address] [place], [address] Cholesterol in VLDL [Mass/Vol] 13 mg/dL Normal 5-40 [facility] Comment on above: Performed By: #### L 501.9520, L100.0100, L506.0400, L506.1000, L500.4100, L500.4050 ####[facility] [address] [place], [address] Triglyceride [Mass/Vol] 67 mg/dL Normal [facility] Comment on above: Result Comment: The drugs N-Acetylcysteine and Metamizole may falsely depress this assay. Serum Triglycerides Reference Interval Normal <150 mg/dL Borderline high 150 - 199 mg/dL High 200 - 499 mg/dL Very High > or = 500 mg/dL Performed By: #### L 501.9520, L100.0100, L506.0400, L506.1000, L500.4100, L500.4050 ####[facility] [address] [place], [address] T4 Free Directon 06-06-2024 T4 FREE DIRECT 0.88 ng/dL Normal 0.76-1.46 [facility] Comment on above: Performed By: #### L 501.9520, L100.0100, L506.0400, L506.1000, L500.4100, L500.4050 ####[facility] [address] [place], [place], [phone] Thyroid Stim Hormone (TSH)on 06-06-2024 TSH 1.80 uIU/mL Normal 0.358-3.74 [facility] Comment on above: Performed By: #### L 501.9520, L100.0100, L506.0400, L506.1000, L500.4100, L500.4050 ####[facility] [address] [place], [address] Vitamin B12on 06-06-2024 Cobalamin (Vitamin B12) [Mass/Vol] 505 pg/mL Normal 211-911 [facility] Comment on above: Performed By: #### L 503.0105, L501.6710, L3410.2400, L506.0250, L5500.0550, L503.6150, L503.6550, L503.6075, L101.9900 ####[facility] [address] [place], [place], [phone] Vitamin D,25 Hydroxyon 06-06 Vitamin D 25-OH 36.0 ng/mL Normal [facility] Comment on above: Result Comment: Yennifer min D 25(OH) Status Range Deficiency <20 ng/mL (50nmol/L) Insufficiency 20 - 30 ng/mL (50 - 75 nmol/L) Sufficiency 30 - 100 ng/mL (75 - 250 nmol/L) Toxicity >100 ng/mL (>250 nmol/L) Performed By: #### L 501.9520, L100.0100, L506.0400, L506.1000, L500.4100, L500.4050 ####[facility] [address] [facility] [place], [address] Pelvic w/ Transvaginalon Pelvic w/ Transvaginal [facility] Services [address] [place] [address] Pelvic w/ Transvaginal MR#: [id number] Acct: [id number] Name: MINDY CERDA Rep #: [id number] : 1985 F 38 From: Vasu Olivares MD PCP: Dr. Óscar Mobley MD Status: [facility] CLI Study: Pelvic w/ Transvaginal Date of Exam: 05/24/24 Exam# [id number] Ordering Dr: Samara Richmond HOURLY SHIFT MANAGER-C [id number] STUDY: ULTRASOUND OF THE FEMALE PELVIS - COMPLETE REASON FOR EXAM: Female, 38 years old. metorrhagia LMP: 05/20/2024 TECHNIQUE: Transabdominal and Transvaginal TECHNICAL QUALITY: Adequate. COMPARISON: None. FINDINGS: The uterus is anteverted and is in a midline position. The uterus measures 12.3 x 7.1 x 5.6 cm. 0.5 cm isoechoic mass within the anterior aspect of the cervix likely consistent with a submucosal fibroid. The endometrium measures 4 mm in thickness, and is hyperechoic. There is no demonstrated endometrial mass. 1 cm isoechoic mass of the anterior body the uterus consistent with an intramural fibroid. 3.5 cm round isoechoic mass of the inferior left side of the uterus consistent with a subserosal fibroid. I.U.D. - The patient does not have an I.U.D. The right ovary is visualized. The right ovary measures 3.0 x 2.1 x 2.0 cm. There is no right ovarian cyst or ovarian mass. There is no visualized right adnexal mass or complex lesion. There is normal arterial and normal venous vascularity. The left ovary is visualized. The left ovary measures 2.4 x 2.0 x 1.1 cm. There is no left ovarian cyst or ovarian mass. There is no visualized left adnexal mass or complex lesion. There is normal arterial and normal venous vascularity. There is no fluid in the cul-de-sac. The pre void volume of the bladder was 286 ml. The post void volume of the bladder was ml. Polycystic ovary disease: No. US/Pelvic w/ Transvaginal IMPRESSION: Enlarged fibroid uterus. Electronically Signed: Vasu Olivares MD at 17:33 EDT , CC: IRVIN Richmond; Dr. Óscar Mobley MD First Aid Instructor: Signed Normal [facility] Robotics Specialist Office Visit Reporton 05-03-2024 Robotics Specialist Office Visit Report [facility] [address] [place] [address]. [address] [place] [address] OFFICE VISIT Date of Service: 05/03/24 MR#: [id number] Acct: [id number] Name: MINDY CERDA Rep #: [id number] : 1985 Provider: IRVIN Munguia Age/Sex: 38/F Location: [facility] Status: Signed Intake Vital Signs 08/30/23 15:32 05/03/24 11:47 05/03/24 11:52 Height 5 ft 4 in 5 ft 4 in 5 ft 4 in Weight: 167 lb BMI 28.6 BP 129/75 H Intake Visit Reasons: NEW PATIENT Floral Clerk Required: No Is patient in pain?: No Allergies venom-honey bee Allergy (Intermediate, Verified 05/03/24 11:48) Swelling Medications ???Medication ???Instructions ???Recorded ???Confirmed ???Type ferrous sulfate 325 mg (65 mg 325 mg PO DAILY 06/24/21 05/03/24 History iron) tablet (FeroSul) multivitamin 1 tab PO DAILY 06/24/21 05/03/24 History Is last menstrual period known: Yes Last Menstrual Period: 04/19/24 Post menopausal: No Patient : No : No Current gender identity: female Control Method: none [facility] Medical History Health care maintenance Breast pain, right Diarrhea Anemia Breast lump Surgical History History of lumpectomy Family History Mother Anemia Colon cancer Grandmother Hypertension Anemia Grandfather Parkinsons disease Social History (Updated 05/03/24 @ 11:51 by Mckenzie Treviño) number of children: 3 current occupational status: employed current occupation: [employer] Smoking Status: Never smoker alcohol intake: current alcohol intake frequency: a few times a week substance use type: does not use what type of physical activity do you participate in: walking frequency: daily seatbelt use: always do you feel safe at home: Yes History 3 Elective abortions Hx Para 3 Spontaneous abortions Hx # Term Pregnancies Ectopic pregnancies Hx # Pregnancies Multiple births # of living children 3 HPI NEW PATIENT Details: MINDY CERDA is a 38 year old who presents for annual exam. She reports her periods have been progressively getting heavier with more discomfort. She uses an ultra tampon and changes this about every 3 hours. She reports she has had anemia in the past from this. Last PAP: 2021-normal History of abnormal PAP: None Last mammogram: 11/2023 History of abnormal mammogram: lump removed 2018. Colon cancer screening: None; Mother recently diagnosed with Colon Cancer. Other preventative health care screenings: PCP: Dr. Mobley. Female Reproductive History Last Menstrual Period: 04/19/24 Cycle Length: 21-35 Bleeding Duration: 6 Questions: metorrhagia: Yes, sexually active: Yes, dyspareunia: No and PCB: No ROS Const Constitutional: Denies chills, fatigue, fever(s), headache(s) or weight loss Eyes Eyes: Denies change in vision ENT ENT: Denies dizziness Resp Resp: Denies cough GI GI: Denies abdominal pain, constipation or nausea : Reports menorrhagia and metrorrhagia; Denies difficulty voiding, dysuria, hematuria, pelvic pain, prolapse symptoms, urinary incontinence, vaginal discharge, vaginal dryness, vaginal odor or vaginal pruritus Skin Skin/Breast: Denies alopecia or rash Neuro Neuro: Denies dizziness Psych Psych: Denies anxiety or depression Endo Endo: Denies cold intolerance, excessive sweating or heat intolerance Exam Const General: cooperative, healthy appearing, comfortable, no acute distress, well groomed and well hydrated Nutritional Appearance: well nourished Orientation: alert, awake and oriented x3 HENMT Head: normal to inspection and normocephalic Ears: hearing grossly normal bilaterally and external ears normal Nose: external nose normal Face and sinus: normal facial exam Eyes General: appearance normal, both eyes and all related structures Neck Neck: normal visual inspection, full ROM and no lymphadenopathy Thyroid: thyroid normal Chest Chest palpation inspection: normal inspection of the chest Breast inspection: normal inspection of the breasts and normal inspection of the axillae Breast palpation: normal palpation of the breasts, normal palpation of the axillae and no axillary lymphadenopathy Resp Effort Inspection: normal respiratory effort, able to speak in complete sentences and symmetric chest movement GI Inspection: normal to inspection Palpation: soft and no hepatosplenomegaly General: bladder normal to palpation External Female Exam: normal external appearance and normal appearance of the urethra Urethra: normal appearance of the urethra Speculum Exam - Vagina: normal appearance of the vagina, (more content not included)... Normal [facility] Stool gastrointestinal hemog lobin detection by immunologic methodOrdered By: Óscar Mobley on 09-06-2023 Lower GI hemoglobin IA Ql (Stl) [facility] Iron measurement (mass/mass) Ordered By: Óscar Mobley on 08-30-2023 Iron (Unsp spec) [Mass/Mass] 10 ug/dL 50-170 [facility] No Panel InformationOrdered By: Óscar Mobley on 08-30-2023 Anti-Gliadin IgA Antibody 9 units 0-19 [facility] Comment on above: Negative 0 - 19 Weak Positive 20 - 30 Moderate to Strong Positive >30 Anti-Gliadin IgG Antibody 3 units 0-19 [facility] Comment on above: Negative 0 - 19 Weak Positive 20 - 30 Moderate to Strong Positive >30 Endomysial IgA Antibody Negative Negative [facility] Tissue Transglutaminase IgG Ab <2 U/mL 0-5 [facility] Comment on above: Negative 0 - 5 Weak Positive 6 - 9 Positive >9 Total Iron Binding Capacity 432 ug/dL 250-450 [facility] Serum IgA measurement (units /volume)Ordered By: Óscar Mobley on 08-30-2023 IgA Qn (S) 272 mg/dL 87-352 [facility] Comment on above: Performed at: [place] [id number] Director: Calvin Perdomo PhD, Phone: [phone] Serum or plasma ferritin sharan surement (mass/volume)Ordered By: Óscar Mobley on 08-30-2023 Ferritin [Mass/Vol] 4 ng/mL 8-252 [facility] Serum tissue transglutaminas e IgA antibody assay (units/volume)Ordered By: Óscar Mobley on 08-30-2023 tTG IgA Qn (S) <2 U/mL 0-3 [facility] Comment on above: Negative 0 - 3 Weak Positive 4 - 10 Positive >10 Tissue Transglutaminase (tTG) has been identified as the endomysial antigen. Studies have demonstr- ated that endomysial IgA antibodies have over 99% specificity for gluten sensitive enteropathy. NOVEL CORONAVIRUS NASOPHARYN GEAL - [facility] SPECIMEN ONLYon 09-23-2020 SARS-COV-2 NOT DETECTED Normal NOT DETECTED [facility] Comment on above: Order Comment: Submi tter Name: [facility] Agent Suspected: SARS-COV-2 This test was performed using real time PCR and has been approved for the qualitative detection of SARS-CoV-2 nucleic acid. The test has been authorized by the FDA under an emergency use authorization for use by authorized laboratories. Result Comment: Nega tive results do not preclude SARS-CoV-2 infection and should not be used as the sole basis for treatment or other patient management decisions. Optimum specimen types and timing for peak viral levels during infections caused by SARS-CoV-2 has not been determined. The possibility of a false negative result should especially be considered if the patient's recent exposures or clinical presentation suggest that SARS-CoV-2 infection is probable, and diagnostic tests for other causes of illness (e.g., other respiratory illness) are negative. Collection of a new specimen and re-testing may be necessary if the patient is critically ill or clinically deteriorating. Performed By: #### L [id number] #### [facility] ([facility]) [address] [place] [address] Vital Signs Date Time Vital Sign Value Performing Clinician Faci litnataliia 01-22-2025 13:53-0400 Body temperature 97.4 [degF] Dr. Óscar Mobley MD Work Phone: [facility] 01-22-2025 13:53-0400 Diastolic blood pressure 80 mm[Hg] Dr. Óscar Mobley MD Work Phone: [facility] 01-22-2025 13:53-0400 Heart rate 79 /min Dr. Óscar Mobley MD Work Phone: [facility] 01-22-2025 13:53-0400 Respiratory rate 16 /min Dr. Óscar Mobley MD Work Phone: [facility] 01-22-2025 13:53-0400 SaO2% (BldA) [Mass fraction] 97 % Dr. Óscar Mobley MD Work Phone: [facility] 01-22-2025 13:53-0400 Systolic blood pressure 121 mm[Hg] Dr. Óscar Mobley MD Work Phone: [facility] 01-22-2025 11:21-0400 Inhaled oxygen flow rate 6 L/min Dr. Óscar Mobley MD Work Phone: [facility] 01-22-2025 09:15-0400 Body height 162.[address] Óscar Mobley MD Work Phone: [facility] 01-22-2025 09:15-0400 Body mass index (BMI) [Ratio] 28.8 kg/m2 Dr. Óscar Mobley MD Work Phone: [facility] 01-22-2025 09:15-0400 Body weight 76.[address] Óscar Mobley MD Work Phone: [facility] 01-08-2025 10:50-0500 Body mass index (BMI) [Ratio] 28.6 kg/m2 Dr. Óscar Mobley MD Work Phone: [facility] 01-08-2025 10:50-0500 Body temperature 97.4 [degF] Dr. Óscar Mobley MD Work Phone: [facility] 01-08-2025 10:50-0500 Body weight 75.[address] Óscar Mobley MD Work Phone: [facility] 01-08-2025 10:50-0500 Diastolic blood pressure 76 mm[Hg] Dr. Óscar Mobley MD Work Phone: [facility] 01-08-2025 10:50-0500 Heart rate 80 /min Dr. Óscar Mobley MD Work Phone: [facility] 01-08-2025 10:50-0500 Respiratory rate 16 /min Dr. Óscar Mobley MD Work Phone: [facility] 01-08-2025 10:50-0500 SaO2% (BldA) [Mass fraction] 98 % Dr. Óscar Mobley MD Work Phone: [facility] 01-08-2025 10:50-0500 Systolic blood pressure 120 mm[Hg] Dr. Óscar Mobley MD Work Phone: [facility] 12-13-2024 14:28-0500 Body mass index (BMI) [Ratio] 29.9 kg/m2 Dr. Óscar Mobley MD Work Phone: [facility] 12-13-2024 14:28-0500 Body temperature 97.6 [degF] Dr. Óscar Mobley MD Work Phone: [facility] 12-13-2024 14:28-0500 Body weight 79.[address] Óscar Mobley MD Work Phone: [facility] 12-13-2024 14:28-0500 Diastolic blood pressure 74 mm[Hg] Dr. Óscar Mobley MD Work Phone: [facility] 12-13-2024 14:28-0500 Heart rate 63 /min Dr. Óscar Mobley MD Work Phone: [facility] 12-13-2024 14:28-0500 Respiratory rate 18 /min Dr. Óscar Mobley MD Work Phone: [facility] 12-13-2024 14:28-0500 SaO2% (BldA) [Mass fraction] 99 % Dr. Óscar Mobley MD Work Phone: [facility] 12-13-2024 14:28-0500 Systolic blood pressure 111 mm[Hg] Dr. Óscar Mobley MD Work Phone: [facility] 12-04-2024 14:58-0500 Body mass index (BMI) [Ratio] 30 kg/m2 Dr. Óscar Mobley MD Work Phone: [facility] 12-04-2024 14:58-0500 Body temperature 97.9 [degF] Dr. Óscar Mobley MD Work Phone: [facility] 12-04-2024 14:58-0500 Body weight 79.[address] Óscar Mobley MD Work Phone: [facility] 12-04-2024 14:58-0500 Diastolic blood pressure 72 mm[Hg] Dr. Óscar Mobley MD Work Phone: [facility] 12-04-2024 14:58-0500 Heart rate 89 /min Dr. Óscar Mobley MD Work Phone: [facility] 12-04-2024 14:58-0500 Respiratory rate 17 /min Dr. Óscar Mobley MD Work Phone: [facility] 12-04-2024 14:58-0500 SaO2% (BldA) [Mass fraction] 99 % Dr. Óscar Mobley MD Work Phone: [facility] 12-04-2024 14:58-0500 Systolic blood pressure 128 mm[Hg] Dr. Óscar Mobley MD Work Phone: [facility] 08-30-2023 15:32-0400 Body height 162.[address] Óscar Mobley Work Phone: [facility] 08-30-2023 15:32-0400 Body mass index (BMI) [Ratio] 28.1 kg/m2 Dr. Óscar Mobley Work Phone: [facility] 08-30-2023 15:32-0400 Body temperature 98.7 [degF] Dr. Óscar Mobley Work Phone: [facility] 08-30-2023 15:32-0400 Body weight 74.[address] Óscar Mobley Work Phone: [facility] 08-30-2023 15:32-0400 Diastolic blood pressure 80 mm[Hg] Dr. Óscar Mobley Work Phone: [facility] 08-30-2023 15:32-0400 Heart rate 85 /min Dr. Óscar Mobley Work Phone: [facility] 08-30-2023 15:32-0400 Respiratory rate 16 /min Dr. Óscar Mobley Work Phone: [facility] 08-30-2023 15:32-0400 SaO2% (BldA) [Mass fraction] 97 % Dr. Óscar Mobley Work Phone: [facility] 08-30-2023 15:32-0400 Systolic blood pressure 122 mm[Hg] Dr. Óscar Mobley Work Phone: [facility] Encounters Encounter Date Encounter Type Care Provider Facility Start: 02-07-2025 End: 02-07-2025 [facility] Start: 02-01-2025 Encounter for other preprocedural examination Eric Mistry [facility] Start: 01-22-2025 Non-patient / Non-visit Dr. Sharon Mistry MD -[facility] Start: 01-22-2025 End: 01-22-2025 Admission to same day surgery center Dr. Eric Mistry [facility] Start: 01-22-2025 End: 01-22-[address] Óscar Mobley MD Work Phone: [facility] Work Phone: Start: 01-10-2025 End: 01-10-2025 ambulatory Wilian Salguero Facility:[facility] Start: 01-10-2025 End: 01-10-2025 Non-patient / Non-visit Dr. Wilian Salguero MD -[facility] Work Phone: Start: 01-08-2025 End: 01-08-[address] Óscar Mobley MD -[facility] Work Phone: Start: 01-08-2025 End: 01-08-2025 ambulatory Óscar Mobley Facility:[facility] Start: 12-13-2024 End: 12-13-[address] Eric Mistry MD -[facility] Work Phone: Start: 12-13-2024 End: 12-13-2024 ambulatory Óscar Mobley Facility:[facility] Start: 12-08-2024 End: 12-08-[address] Óscar Mobley MD -Ultrasound, [facility] Work Phone: Start: 12-08-2024 End: 12-08-[facility] Start: 12-04-2024 End: 12-04-[address] Óscar Mobley MD -[facility] Work Phone: Start: 12-04-2024 End: 12-04-2024 ambulatory [facility] Facility:[facility] Start: 12-04-2024 End: 12-04-2024 Patient encounter procedure Samara [facility] [employer] -Laboratory Work Phone: Start: 12-04-2024 End: 12-04-2024 ambulatory [facility] Facility:[facility] Start: 07-18-2024 ambulatory [facility] Facility :[facility] Start: 07-06-[address] Kulwinder Mobley MD Work Phone: [facility] Start: 07-06-2024 End: 07-06-2024 ambulatory [facility] Facility:[facility] Start: 07-01-2024 Encounter for genera l adult medical examination [facility] Start: 06-30-2024 End: 06-30-2024 ambulatory [facility] Facility:[facility] Start: 06-06-2024 End: 06-06-2024 ambulatory [facility] Facility:[facility] Start: 06-06-2024 End: 06-06-2024 ambulatory [facility] Facility:[facility] Start: 05-24-2024 End: 05-24-2024 ambulatory [facility] Facility:[facility] Start: 05-03-[address] Kulwinder Mobley MD Work Phone: [facility] Start: 05-03-2024 End: 05-03-2024 [facility] Start: 12-06-2023 End: 12-06-[address] Óscar Mobley Work Phone: [facility] Work Phone: Start: 12-06-2023 End: 12-06-[address] Óscar Mobley Work Phone: [facility]-Outpatient Breast Imaging Work Phone: Start: 09-07-2023 End: 09-07-[address] Óscar Mobley Work Phone: [facility] Work Phone: Start: 09-07-2023 End: 09-07-[address] Óscar Mobley Work Phone: [facility]-Laboratory, [facility] Start: 08-30-[address] Kulwinder Mobley Work Phone: [facility] Start: 08-30-2023 End: 08-30-2023 Encounter for general adult medical examination without abnormal findings Dr. Óscar Mobley Work Phone: [facility] Start: 08-30-2023 End: 08-30-[address] Óscar Mobley Work Phone: [facility] Work Phone: Start: 01-27-2022 End: 01-27-2022 Patient encounter procedure [facility]-Laboratory, Specimen Procedures Date Procedure Procedure Detail Performing Clinician Start: 01-22-[address] Óscar Mobley MD Work Phone: Start: 12-08-[address] Óscar oMbley MD Work Phone: Start: 12-06-2023 Bilateral mammography Wade Mobley Work Phone: Start: 12-06-[address] Óscar Mobley Work Phone: Start: 09-06-2023 Measurement of occul t blood in stool specimen using immunoassay Dr. Óscar Mobley Work Phone: Plan of Treatment Date Care Activity Detail Author Start: 01-22-2025 Patient discharge [facility] Start: 01-04-2025 Electrocardiographic procedure [facility] Patient referral [facility] Work Phone: Breast limited [facility] Immunizations Immunization Date Immunization Notes Care Provider Chey catalan 09-27-2023 influenza, injectabl e, quadrivalent, preservative free Dr. Óscar Mobley Work Phone: [facility] 09-12-2020 influenza, injectabl e, quadrivalent, preservative free Dr. Óscar Mobley Work Phone: [facility] 09-12-2020 influenza, seasonal, injectable [facility] Work Phone: 09-20-2019 influenza, injectabl e, quadrivalent, preservative free Dr. Óscar Mobley Work Phone: [facility] 09-20-2019 influenza, seasonal, injectable [facility] Work Phone: 07-09-2017 Influenza virus vaccine [facility] Payers Date Payer Category Payer Self-pay [id number] 2024 Unknown [id number] Unknown [id number] Unknown [id number] 2.16.8 [id number] Unknown [id number] 2.16.8 [id number] Unknown [id number] 2.16.8 [id number] Unknown [id number] 2.16.8 [id number] Unknown [id number] 2.16.8 [id number] Unknown [id number] 2.16.8 [id number] Unknown [id number] 2.16.8 [id number] Unknown [id number] 2.16.8 40.1.315700.3.579.2.462 Unknown [id number] 2.16.8 40.1.999343.3.579.2.462 Unknown [id number] 2.16.8 40.1.693995.3.579.2.462 Unknown [id number] 2.16.8 [id number] Unknown [id number] 2.16.8 [id number] Unknown [id number] 2.16.8 [id number] Unknown [id number] 2.16.8 40.1.409740.3.579.2.462 Unknown [id number] 2.16.8 [id number] Unknown [id number] 2.16.8 [id number] Unknown [id number] 2.16.8 [id number] Social History Date Type Detail Facility Start: 06-24-2021 End: 08-30-2023 Tobacco smoking status NHIS Unknown if ever smoked [facility] Start: 1985 Sex Assigned At Female [facility] Start: 01-04-2025 Tobacco smoking status NHIS Never smoked tobacco (finding) [facility] Start: 01-22-2025 Sex Female (finding) [facility] NEGATED: Highlighted row Not [facility] Goals Date Patient Goal Desired Activity /State Mental Status Date Assessment Result Facility 01-22-2025 Cognitive function Voice/Name [facility] Work Phone: 01-22-2025 Cognitive function Patient Autumn ndiaye Person;Place;Time [facility] Work Phone: Clinical Notes 06-30-2024 to 01-22-2025 Note Date & Type Note Facility 01-22-2025 Consult note [facility] 01-22-2025 History and physical note [facility] 01-22-2025 Consult note Note Date/Time January 22, 2025 11:21am [facility] Medical Records Department [address] [place] [address] Anesthesia Postop Eval I 01/22/25 1119 MR#: [id number] Acct: [id number] Name: MINDY CERDA Rep #:[id number] : 1985 39 From: Lacy Estrada PCP: Dr. Óscar Mobley MD Status:R [facility] [place] Race: C Location: [place] [address] Anesthesia: Postop Eval I Current Vital Signs Temperature: 98.6 F Pulse Rate: 83 Blood Pressure: 121/84 Respiratory Rate: 20 Pulse Ox: 98 Oxygen Delivery Method: Non-Rebreather Oxygen Flow Rate (L/min): 6 Assessment Airway patent: Yes Spontaneous unlabored respirations: Yes Mental status: Asleep nausea: No Vomiting: No Anesthesia Complication: No Fluid Hydration Crystalloid volume administer (ml): 800 Total IV fluid infused: 800 Progress Note Anesthesia document: Postop Eval 1 completed: Yes 01/22/25 1121 <Electronically signed by Lacy Wilkins RNA> Date _ Lacy Valdez [employer]SEMBLER Cosigner Signature: Date CC: ~ Signed [facility] Work Phone: 1(318) 558-245903-17-2025 Discharge summary Author Eric Mistry [facility] Note Date/Time January 22, 2025 11: 15am [facility] Medical Records Department [address] [place] [address] Instructions for Home/Discharge Instructions 01/22/25 1114 MR#: [id number] Acct: [id number] Name: MINDY CERDA Rep #:[id number] : 1985 39 From: Eric cotto MD PCP: Dr. Óscar Mobley MD Status:[place] [facility] [place]charge Instructions Procedure Gallbladder Diet Discharge Diet: Light diet - advance as tolerated Activity Discharge Activity: May Not Drive (for 2-3 days or while taking narcotic pain medications.) and - (Do not drive, work heavy equipment or sign legal documents for 24 hours.) May shower in (days): 1 Lifting Restrictions: 20 lbs for 2 weeks Additional Activity Instructions:: Pain medication may cause nausea. You should typically eat light foods as you take your pain medications. Pain medication may also cause constipation. If this is a problem for you, please discuss with your doctor. Alternate ibuprofen and Tylenol for pain control, oxycodone for breakthrough pain Dressing / Incision Call your doctor if your incision/area has: Continuous Slow Oozing, Sudden Increased Bleeding, Increased Pain/ Swelling, Increased Redness and Foul Smelling Discharge Call your doctor if you observe: Fever of 101 or Higher Suture Line Care: Avoid Pulling/Pushing and Avoid Pinching/Bending Remove Dressing in: 2 days Additional Dressing/Incision Instructions:: Leave operative bandaids on for 2 days. When you remove dressing, leave Steri-Strips on until your follow-up appointment, or until the Steri-Strips fall off on their own. Follow Up Care Please Follow Up With: Eric Mistry MD When: Please call to schedule 2 week follow up appointment. [phone] Test Results: Test results from this visit will be discussed in further detail at your follow- up appointment, if applicable. Discharge Plan Admission Attending Provider: Eric Mistry Primary Care Provider: Óscar Mobley Instructions Print Language: Armenian Discharge Orders/Prescriptions Prescriptions: New oxycodone 5 mg Tablet 5 - 10 mg PO Q4H PRN PRN (Reason: Pain Score 4-10) 5 Days Qty: 20 0RF No Action multivitamin Tablet 1 tab PO DAILY ferrous sulfate [FeroSul] 325 mg (65 mg iron) tablet 325 mg PO DAILY Qty: 30 0RF Other Ambulatory Orders: 12 Lead EKG (Routine) Location: None Selected Ordered By: Dr. Yash Looney Referrals / Follow Up: Óscar Mobley MD [Primary Care Provider] - Disposition Disposition (needs filled in before D/C Order can be placed): Home, Self Care 01/22/25 1115<Electronically signed by Eric Mistry MD>Eric Mistry MD CC: Dr. sÓcar Mobley MD ~ Signed [facility] Work Phone: 1(388) 964-819503-17-2025 Consult note [facility] Note Date/Time January 22, 2025 9:5 1am [facility] Medical Records Department [address] [place] [address] Pre-Anesthesia Evaluation 01/22/25 0946 MR#: [id number] Acct: [id number] Name: MINDY CERDA Rep #:[id number] : 1985 39 From: Yash Looney MD PCP: Dr. Óscar Mobley MD Status:R [facility] Y Race: C Location: [place] [address] ASA Classification* ASA Classification ASA Classification: 1 Assessment & Plan Anesthesia* Anesthesia Assessment Anesthesia Assessment: Discussed sedation and/or anesthesia options, risks, benefits, and alternatives with patient/parents/legal guardian/POA. Questions invited. The patient/parents/legal guardian/POA seems to understand and agrees to proceedwith anesthesia plan. Reviewed the physical assessment, medical history, allergy history and patient home medications list prior to surgery/procedure/anesthetic and documented any changes. Performed airway and anesthesia risk assessments. Anesthesia Type Anesthesia Type: General History Source History Obtained from:: Patient and Chart Anesthesia Focused Assessment* Temperature: 97.8 F Pulse Rate: 68 Blood Pressure: 109/72 Respiratory Rate: 16 Pulse Ox: 100 Oxygen Delivery Method: Room Air Airway Assessment Mouth opens: >3 cm Mallampati Score: I Teeth Condition: Caps/Crowns (Patient has 1 crown left lower molar. It is tight.) Neck Range of motion (ROM): Full ROM Focused Labs Anesthesia Preop lab: CBC WBC 8.0 K/mm3 (4.4-11.0) 12/04/24 12:19 12/04/24 RBC 4.62 M/mm3 (4.2-5.4) 12/04/24 12:19 12/04/24 Hgb 12.8 g/dL (12.0-15.0) 12/04/24 12:19 12/04/24 Hct 39.4 % (37-47) 12/04/24 12:19 12/04/24 Plt Count 300 K/mm3 (150-450) 12/04/24 12:19 12/04/24 CHEMISTRY Potassium 3.6 mmol/L (3.5-5.1) 06/06/24 09:13 06/06/24 Sodium 137 mmol/L (136-145) 06/06/24 09:13 06/06/24 Phosphorus 3.5 mg/dL (2.5-4.9) 06/24/21 15:19 06/24/21 BUN 8 mg/dL (7-18) 06/06/24 09:13 06/06/24 Creatinine 0.64 mg/dL (0.55-1.02) 06/06/24 09:13 06/06/24 Glucose 85 mg/dL (74-106) 06/06/24 09:13 06/06/24 TSH 1.80 uIU/mL (0.358-3.74) 06/06/24 09:13 COAG PT 14.0 SECONDS (11.7-14.9) 01/10/25 12:13 Urine Test Negative Negative 01/22/25 08:55 01/22/25 Pre-Assessment Diagnosis/Proposed Procedure Planned Operative Procedure(s): Robotic Cholecystectomy w/grams Anesthesia History 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 When Was Last Pacemaker Check QUESTION #4 FULL TEXT: You/Your Family Experience fever (hyperthermia) with Anesthesia Last Oral Intake Last Oral intake: Last Oral Intake NPO since 23:30 01/22/25 09:15 Meds taken in AM with sips of No 01/22/25 09:15 water? Meds patient instructed to take am of surgery PONV PONV - senior litigation paralegal: PONV - senior litigation paralegal Female Yes 01/04/25 11:05 HX of Motion Sickness No 01/04/25 11:05 HX of N/V After Surgery No 01/04/25 11:05 Non-Smoker Yes 01/04/25 11:05 Duration of Surgery greater Yes 01/04/25 11:05 than 60 minutes Number of Risk Factors 3 01/04/25 11:05 PONV Score Moderate Risk 01/04/25 11:05 Height & Weight Height & Weight: Anesthesia: Height & Weight Height 5 ft 4 in 01/22/25 09:15 Weight: 76.2 kg 01/22/25 09:15 Body Mass Index (BMI) 28.8 01/22/25 09:15 Respiratory Assessment Respiratory Assessment - senior litigation paralegal: Respiratory Tract Infection Hx - senior litigation paralegal Hx Respiratory Tract Infection No 01/04/25 11:05 STOP Sleep Apnea STOP Sleep Apnea - senior litigation paralegal: STOP Sleep Apnea - senior litigation paralegal Hx Hypertension No 01/04/25 11:05 Hx Sleep Apnea No 01/04/25 11:05 CPAP BIPAP Do you snore loudly (louder No 01/04/25 11:05 than talking or can be heard Do you often feel tired/ No 01/04/25 11:05 fatigued/ sleepy during daytime? Has anyone observed you stop No 01/04/25 11:05 breathing during sleep? STOP Results Negative 01/04/25 11:05 QUESTION #5 FULL TEXT : Do you snore loudly (louder than talking or can be heard through closed doors)? 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 Specify any problems Hx of Preganancy in last 3 N/A 01/04/25 11:05 Months Nurse Filling Out Transfusion NBUCHER 01/04/25 11:05 & Questions: Date: 01/04/25 01/04/25 11:05 Time: 11:05 01/04/25 11:05 Patient unable to answer at this time (ie. confused, unrespo /Reproduction History /Reproductive History - senior litigation paralegal: /Reproductive Hx- senior litigation paralegal Hx Now No 01/04/25 11:05 Gestational Age (in weeks): EDC: Hx Hx Para Hx Section SAB No 01/04/25 11:05 Active Medications Active Medications: Current Medications Generic Name Dose Route Start Last Admin Trade Name Freq PRN Reason Stop Dose Admin Indocyanine Green 3.75 mg/ N/A 1.5 mls @ 999 mls/hr 01/22/25 10:05 01/22/25 09:12 IV 01/22/25 10:06 999 mls/hr PREOP ONE Administration Cefotetan Disodium 2 gm/ 100 mls @ 200 mls/hr 01/22/25 10:05 Sodium Chloride IV 01/22/25 10:34 PREOP ONE Sodium Chloride 1,000 mls @ 15 mls/hr 01/22/25 09:15 01/22/25 09:15 IV 15 mls/hr .Q48H SAYDA Administration PFSH Medical History Cholelithiasis RUQ abdominal pain Preventative health care Wears contact lenses Wears glasses Alcohol use Arthritis Non-smoker Health care maintenance Breast pain, right Diarrhea Anemia Breast lump Home Medications ?Medication ?Instructions ?Recorded ?Last Taken ?Type multivitamin 1 tab PO DAILY 06/24/2101/06 History ferrous sulfate 325 mg (65 mg 325 mg PO DAILY #30 tabs 06/08/24 01/21/25 Rx iron) tablet (FeroSul) Allergy/AdvReac Type Severity Reaction Status Date / Time venom-honey bee Allergy Intermediate Swelling Verified 01/22/25 09:06 Family History Mother Anemia Colon cancer Grandmother Hypertension Anemia Grandfather Parkinsons disease Surgical History History of colonoscopy with polypectomy History of lumpectomy Social History number of children: 3 current occupational status: employed current occupation: [employer] Smoking Status: Never smoker alcohol intake: current alcohol intake frequency: a few times a week substance use type: does not use what type of physical activity do you participate in: walking frequency: daily seatbelt use: always do you feel safe at home: Yes Review of Systems (Anesthesia) ROS Narrative System reviewed and no additional complaints, except as documented. 01/22/25950 <Electronically signed by Yash mueller MD> Date _ Yash Looney MD Cosigner Signature: Date CC: ~ Signed [facility] Work Phone: [phone]) 125-365003-17-2025 Consult note [facility] Medical Records Department [address] [place] [address] Anesthesia Postop Eval I 01/22/25 1119 MR#: [id number] Acct: [id number] Name: MINDY CERDA Rep #:[id number] : 1985 39 From: Lacy Estrada PCP: Dr. Óscar Mobley MD [place] [facility] Race[place] C Location: [place] [address] Anesthesia: Postop Eval I Current Vital Signs Temperature: 98.6 F Pulse Rate: 83 Blood Pressure: 121/84 Respiratory Rate: 20 Pulse Ox: 98 Oxygen Delivery Method: Non-Rebreather Oxygen Flow Rate (L/min): 6 Assessment Airway patent: Yes Spontaneous unlabored respirations: Yes Mental status: Asleep nausea: No Vomiting: No Anesthesia Complication: No Fluid Hydration Crystalloid volume administer (ml): 800 Total IV fluid infused: 800 Progress Note Anesthesia document: Postop Eval 1 completed: Yes 01/22/25 1121 RNA> Date _ Lacy Reyeswalker [employer] Cosigner Signature: Date CC: ~ Signed [facility]03-17-2025 Discharge summary [facility] Medical Records Department [address] [place] [address] Instructions for Home/Discharge Instructions 01/22/25 1114 MR#: [id number] Acct: [id number] Name: MINDY CERDA Rep #:[id number] : 1985 39 From: Eric cotto MD PCP: Dr. Óscar Mobley MD Status[place] [facility] [place] Instructions Procedure Gallbladder Diet Discharge Diet: Light diet - advance as tolerated Activity Discharge Activity: May Not Drive (for 2-3 days or while taking narcotic pain medications.) and - (Do not drive, work heavy equipment or sign legal documents for 24 hours.) May shower in (days): 1 Lifting Restrictions: 20 lbs for 2 weeks Additional Activity Instructions:: Pain medication may cause nausea. You should typically eat lightfoods as you take your pain medications. Pain medication may also cause constipation. If this is a problem for you, please discuss with yourdoctor. Alternate ibuprofen and Tylenol for pain control, oxycodone for breakthrough pain Dressing / Incision Call your doctor if your incision/area has: Continuous Slow Oozing, Sudden Increased Bleeding, Increased Pain/ Swelling, Increased Redness and Foul Smelling Discharge Call your doctor if you observe: Fever of 101 or Higher Suture Line Care: Avoid Pulling/Pushing and Avoid Pinching/Bending Remove Dressing in: 2 days Additional Dressing/Incision Instructions:: Leave operative bandaids on for 2 days. When you removedressing, leave Steri-Strips on until your follow-up appointment, or until the Steri-Strips fall off on their own. Follow Up Care Please Follow Up With: Eric Mistry MD When: Please call to schedule 2 week follow up appointment. [phone] Test Results: Test results from this visit will be discussed in further detail at your follow- up appointment, if applicable. Discharge Plan Admission Attending Provider: Eric Mistry Primary Care Provider: Óscar Mobley Instructions Print Language: Armenian Discharge Orders/Prescriptions Prescriptions: New oxycodone 5 mg Tablet 5 - 10 mg PO Q4H PRN PRN (Reason: Pain Score 4-10) 5 Days Qty: 20 0RF No Action multivitamin Tablet 1 tab PO DAILY ferrous sulfate [FeroSul] 325 mg (65 mg iron) tablet 325 mg PO DAILY Qty: 30 0RF Other Ambulatory Orders: 12 Lead EKG (Routine) Location: None Selected Ordered By: Dr. Yash Looney Referrals / Follow Up: Óscar Mobley MD [Primary Care Provider] - Disposition Disposition (needs filled in before D/C Order can be placed): Home, Self Care 01/22/25 1115Antshreya Mistry MD CC: Dr. Óscar Mobley MD ~ Signed [facility]03-17-2025 Procedure note [facility] Medical Records Department [address] [place] [address] Operative Report 01/22/25 1109 MR#: [id number] Acct: [id number] Name: MINDY CERDA Rep #:[id number] : 1985 39 From: Eric cotto MD PCP: Dr. Óscar Mobley MD Status:R [facility] Location: [place] [address] Operative Report (Standard) Operative Information Date of Procedure: 01/22/25 Pre-Operative Diagnosis: Biliary colic and cholelithiasis Post-Operative Diagnosis: Same Surgery/Procedure Performed: Robotic assisted laparoscopic cholecystectomy church official: Yes Office Services Clerk: Yudy Knight Tasks completed by first cook: Opening and Closing Type of Anesthesia: General/Regional RN Documented Start/Stop Times: Operation Date: 01/22/25 10:05 Case Time Into Pre-Op 01/22/25 08:44 Anesthesia Start 01/22/25 09:56 Into Room 01/22/25 09:56 Out of Pre-Op 01/22/25 10:03 Procedure Start 01/22/25 10:15 Procedure Start Time: 10:15 Procedure Stop Time: 11:05 Select all DRAINS/GRAFTS/IMPLANTS that apply: None Estimated Blood Loss: 5 Specimen collected: Yes Description of specimen(s) removed: Gallbladder Description of surgery: Patient was roaming the operating room and general anesthesia was induced. The abdomen was prepped and draped in usual sterile fashion. A left upper quadrant incision was made and a Veress needle wasplaced into the abdomen and a drop test was performed. The abdomen was then insufflated to 15 mmHg.Port was placed into the abdomen and then under direct visualization 3 additional [address] aced. Patient was placed in reverse Trendelenburg position and therobot was docked. Grasper was used to elevate the gallbladder and the adhesionsto it were bluntly dissected free. The infundibulum was located and retracted laterally. The cystic duct was traced and using ICG immunofluorescence it was identified. The hook was used to take down all of the attachments around the cystic duct. The cystic artery was then identified and a clip was placed on it. Next 3 clips were placed on the cystic duct and it was divided. 2 additional clips were placed on the cystic artery and it was divided. The clips retracted well and then the gallbladder was taken off of the gallbladder fossa using the hook. T here was some spillage of bile taken the gallbladder off of the liver. This was irrigated and suction. The gallbladder was then placed into a bag and removed through one of the right-sided abdominal ports. All of the ports were injected with anesthesia and then closed with interrupted 4-0 Monocryl sutures and Steri- Strips and bandages. Patient was awoken and taken to PACU in stable condition. Surgical Findings: None Complications Complications: No Admit VTE Documentation VTE Mechan Device Prophylaxis: SCD's 01/22/25 1113 Cosigner Signature (if applicable): CC: Dr. Eric Mistry MD; Dr. Óscar Mobley MD~ Signed [facility]03-17-2025 History and physical note Author Eric Mistry [facility] Note Date/Time January 22, 2025 2:[address] [facility] Medical Records Department [address] [place] [address] History & Physical Exam 01/22/25 0832 MR#: [id number] Acct: [id number] Name: MINDY CERDA Rep #:[id number] : 1985 39 From: Eric cotto MD PCP: Dr. Óscar Mobley MD Status:[facility] Location: [place] [address] History and Physical Date of Admission: 01/22/25 Intake Vital Signs 12/04/2513:58 12/13/2513:28 Height 5 ft 4 in 5 ft 4 in Weight: 175 lb 174 lb 5 oz BMI 30.0 29.9 BP 128/72 H 111/74 Blood Pressure Location Lt brachial Rt brachial Position Sitting Sitting Respiration 17 18 Pulse 89 63 Pulse Source Monitor Monitor Temp 97.9 F 97.6 F L Temp Source Temporal Temporal Pulse Oximetry (%) 99 99 Oxygen Delivery Method room air room air Intake Visit Reasons: GALLBLADDER Chief Complaint: gallbladder Is patient in pain?: No Allergies venom-honey bee Allergy (Intermediate, Verified 12/13/24 14:29) Swelling Medications ?Medication ?Instructions ?Recorded ?Confirmed ?Type multivitamin 1 tab PO DAILY 06/24/21 12/13/24 History ferrous sulfate 325 mg (65 mg 325 mg PO DAILY #30 tabs 06/08/24 Rx iron) tablet (FeroSul) [facility] Medical History (Updated 12/13/24 @ 14:[address] Eric Mistry MD) Cholelithiasis RUQ abdominal pain Preventative health care Wears contact lenses Wears glasses Alcohol use Arthritis Non-smoker Health care maintenance Breast pain, right Diarrhea Anemia Breast lump Surgical History History of lumpectomy Family History Mother Anemia Colon cancerGrandmother Hypertension AnemiaGrandfather Parkinsons disease Social History number of children: 3 current occupational status: employed current occupation: [employer] Smoking Status: Never smoker alcohol intake: current alcohol intake frequency: a few times a week substance use type: does not use what type of physical activity do you participate in: walking frequency: daily seatbelt use: always do you feel safe at home: Yes HPI HPI HPI: Patient is a 39-year-old female here for cholelithiasis. She reports she does get periodic attacks which feel like sharp pain in the right upper quadrant thatradiates to the back. That her last attack was 3 weeks ago. She denies nausea or vomiting or fevers or chills. ROS General General: Yes weight change; No appetite, fatigue, colon cancer, breast cancer or weakness HEENT HEENT: No difficulty swallowing, eye injury, eye surgery, swollen glands or hoarseness Endo Endocrine: No thyroid disease, diabetes mellitus, thyroid cancer, Hair loss, heat intolerance or cold intolerance Skin Skin: No rash or changing moles Musc Musculoskeletal: No back problems, arthritis, rheumatoid arthritis, gout or joint pain Cardio Cardiovascular: No murmur, pacemaker, heart disease, atrial fibrillation, high blood pressure, heart attack, heart stent, palpitations, shortness of breat withexertion or chest pain Psych Psychiatric: No depression, anxiety or hearing voices Gastro Gastrointestinal: Yes abdominal pain, No nausea or vomiting, No diarrhea, No constipation, No blood in stool, No acid reflux, No hemorrhoids, No ulcers, Yes gallbladder problem and No black,tarry stools Teja Hematologic: No blood thinners, No blood disorders, No bleeding, Yes anemia and No blood clots Neuro Neurologic: No numbness, No tingling and No weakness Exam Const General: cooperative Orientation: alert and oriented x3 HENMT Head: normal to inspection Neck Neck: normal visual inspection and full ROM Chest Chest palpation & inspection: normal inspection of the chest Resp Effort & Inspection: normal respiratory effort Auscultation: clear to auscultation bilaterally Cardio Rate: regular rate Rhythm: regular rhythm GI Inspection: non-distended Palpation: soft and nontender Skin General: no rashes or lesions noted Neuro General: patient alert and patient oriented x3 Extrem General: full ROM Psych Appearance: grossly normal Mental Status: mental status grossly normal Assessment and Plan Assessment and Plan (1) Cholelithiasis: Status: Acute Qualifiers: Cholelithiasis location: gallbladder Cholecystitis presence: without cholecystitis Biliary obstruction: without biliary obstruction Qualified Code(s): K80.20 - Calculus of gallbladder without cholecystitis without obstruction Plan: Patient is here due to cholelithiasis. She has been having right upper quadrantattacks which sound suspicious for biliary colic. The patient had an ultrasoundwhich showed cholelithiasis. The patient has a lot of gallstones in her gallbladder. I discussed robotic assisted laparoscopic cholecystectomy. I discussed the procedure in detail with the patient. I discussed the risks, benefits, and alternatives of the procedure. I discussed the risks including but not limited to bleeding, infection, injury to surrounding organs such as theliver, bile duct, bowels. I did discuss the possibility of having to convert wei open procedure as well as the possibility that if any injuries occurred this may necessitate further surgery at a tertiary care center. Eric Mistry MD Pager: [employer] [facility] [address] [place] [address], [address] [place] [address] Office: I have examined the patient and the H&P has been reviewed. There are no clinicalchanges since date of exam. 01/22/25 0832 <Electronically signed by Eric Mistry MD> Cosigner Signature (if applicable): CC: Dr. Eric Mistry MD; Dr. Óscar Mobley MD~ Signed [facility] Work Phone: [phone]) 172-350503-17-2025 Consult note [facility] Medical Records Department [address] [place] [address] Pre-Anesthesia Evaluation 01/22/25 0946 MR#: [id number] Acct: [id number] Name: MINDY CERDA Rep #:[id number] : 1985 39 From: Yash Looney MD PCP: Dr. Óscar Mobley MD Status:R EG [facility] Y Race: C Location: [place] [address] ASA Classification* ASA Classification ASA Classification: 1 Assessment & Plan Anesthesia* Anesthesia Assessment Anesthesia Assessment: Discussed sedation and/or anesthesia options, risks, benefits, and alternatives with patient/parents/legal guardian/POA. Questions invited. The patient/parents/legal guardian/POA seems to understand and agrees to proceedwith anesthesia plan. Reviewed the physical assessment, medical history, allergy history and patient home medications list prior to surgery/procedure/anesthetic and documented any changes. Performed airway and anesthesia risk assessments. Anesthesia Type Anesthesia Type: General History Source History Obtained from:: Patient and Chart Anesthesia Focused Assessment* Temperature: 97.8 F Pulse Rate: 68 Blood Pressure: 109/72 Respiratory Rate: 16 Pulse Ox: 100 Oxygen Delivery Method: Room Air Airway Assessment Mouth opens: >3 cm Mallampati Score: I Teeth Condition: Caps/Crowns (Patient has 1 crown left lower molar. It is tight.) Neck Range of motion (ROM): Full ROM Focused Labs Anesthesia Preop lab: CBC WBC 8.0 K/mm3 (4.4-11.0) 12/04/24 12:19 12/04/24 RBC 4.62 M/mm3 (4.2-5.4) 12/04/24 12:19 12/04/24 Hgb 12.8 g/dL (12.0-15.0) 12/04/24 12:19 12/04/24 Hct 39.4 % (37-47) 12/04/24 12:19 12/04/24 Plt Count 300 K/mm3 (150-450) 12/04/24 12:19 12/04/24 CHEMISTRY Potassium 3.6 mmol/L (3.5-5.1) 06/06/24 09:13 06/06/24 Sodium 137 mmol/L (136-145) 06/06/24 09:13 06/06/24 Phosphorus 3.5 mg/dL (2.5-4.9) 06/24/21 15:19 06/24/21 BUN 8 mg/dL (7-18) 06/06/24 09:13 06/06/24 Creatinine 0.64 mg/dL (0.55-1.02) 06/06/24 09:13 06/06/24 Glucose 85 mg/dL (74-106) 06/06/24 09:13 06/06/24 TSH 1.80 uIU/mL (0.358-3.74) 06/06/24 09:13 COAG PT 14.0 SECONDS (11.7-14.9) 01/10/25 12:13 Urine Test Negative Negative 01/22/25 08:55 01/22/25 Pre-Assessment Diagnosis/Proposed Procedure Planned Operative Procedure(s): Robotic Cholecystectomy w/grams Anesthesia History 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 When Was Last Pacemaker Check QUESTION #4 FULL TEXT: You/Your Family Experience fever (hyperthermia) with Anesthesia Last Oral Intake Last Oral intake: Last Oral Intake NPO since 23:30 01/22/25 09:15 Meds taken in AM with sips of No 01/22/25 09:15 water? Meds patient instructed to take am of surgery PONV PONV - senior litigation paralegal: PONV - senior litigation paralegal Female Yes 01/04/25 11:05 HX of Motion Sickness No 01/04/25 11:05 HX of N/V After Surgery No 01/04/25 11:05 Non-Smoker Yes 01/04/25 11:05 Duration of Surgery greater Yes 01/04/25 11:05 than 60 minutes Number of Risk Factors 3 01/04/25 11:05 PONV Score Moderate Risk 01/04/25 11:05 Height & Weight Height & Weight: Anesthesia: Height & Weight Height 5 ft 4 in 01/22/25 09:15 Weight: 76.2 kg 01/22/25 09:15 Body Mass Index (BMI) 28.8 01/22/25 09:15 Respiratory Assessment Respiratory Assessment - senior litigation paralegal: Respiratory Tract Infection Hx - senior litigation paralegal Hx Respiratory Tract Infection No 01/04/25 11:05 STOP Sleep Apnea STOP Sleep Apnea - senior litigation paralegal: STOP Sleep Apnea - senior litigation paralegal Hx Hypertension No 01/04/25 11:05 Hx Sleep Apnea No 01/04/25 11:05 CPAP BIPAP Do you snore loudly (louder No 01/04/25 11:05 than talking or can be heard Do you often feel tired/ No 01/04/25 11:05 fatigued/ sleepy during daytime? Has anyone observed you stop No 01/04/25 11:05 breathing during sleep? STOP Results Negative 01/04/25 11:05 QUESTION #5 FULL TEXT : Do you snore loudly (louder than talking or can be heard through closeddoors)? 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 Specify any problems Hx of Preganancy in last 3 N/A 01/04/25 11:05 Months Nurse Filling Out Transfusion NBUCHER 01/04/25 11:05 & Questions: Date: 01/04/25 01/04/25 11:05 Time: 11:05 01/04/25 11:05 Patient unable to answer at this time (ie. confused, unrespo /Reproduction History /Reproductive History - senior litigation paralegal: /Reproductive Hx- senior litigation paralegal Hx Now No 01/04/25 11:05 Gestational Age (in weeks): EDC: Hx Hx Para Hx Section SAB No 01/04/25 11:05 Active Medications Active Medications: Current Medications Generic Name Dose Route Start Last Admin Trade Name Freq PRN Reason Stop Dose Admin Indocyanine Green 3.75 mg/ N/A 1.5 mls @ 999 mls/hr 01/22/25 10:05 01/22/25 09:12 IV 01/22/25 10:06 999 mls/hr PREOP ONE Administration Cefotetan Disodium 2 gm/ 100 mls @ 200 mls/hr 01/22/25 10:05 Sodium Chloride IV 01/22/25 10:34 PREOP ONE Sodium Chloride 1,000 mls @ 15 mls/hr 01/22/25 09:15 01/22/25 09:15 IV 15 mls/hr .Q48H SAYDA Administration [facility] Medical History Cholelithiasis RUQ abdominal pain Preventative health care Wears contact lenses Wears glasses Alcohol use Arthritis Non-smoker Health care maintenance Breast pain, right Diarrhea Anemia Breast lump Home Medications ?Medication ?Instructions ?Recorded ?Last Taken ?Type multivitamin 1 tab PO DAILY 06/24/2101/06 History ferrous sulfate 325 mg (65 mg 325 mg PO DAILY #30 tabs 06/08/24 01/21/25 Rx iron) tablet (FeroSul) Allergy/AdvReac Type Severity Reaction Status Date / Time venom-honey bee Allergy Intermediate Swelling Verified 01/22/25 09:06 Family History Mother Anemia Colon cancer Grandmother Hypertension Anemia Grandfather Parkinsons disease Surgical History History of colonoscopy with polypectomy History of lumpectomy Social History number of children: 3 current occupational status: employed current occupation: [employer] Smoking Status: Never smoker alcohol intake: current alcohol intake frequency: a few times a week substance use type: does not use what type of physical activity do you participate in: walking frequency: daily seatbelt use: always do you feel safe at home: Yes Review of Systems (Anesthesia) ROS Narrative System reviewed and no additional complaints, except as documented. 01/22/25950 ervin HOWE> Date _ Yash Looney MD [facility] Signature: Date CC: ~ Signed [facility]03-17-2025 [facility] Medical Records Department [address] [place] [address] History Physical Exam 01/22/25 0832 MR#: [id number] Acct: [id number] Name: MINDY CERDA Rep #: [id number] : 1985 39 From: Eric Mistry MD PCP: Dr. Óscar Mobley MD Status:[facility] Location: [place] [address] History and Physical Date of Admission: 01/22/25 Intake Vital Signs 12/04/2513:58 12/13/2513:28 Height 5 ft 4 in 5 ft 4 in Weight: 175 lb 174 lb 5 oz BMI 30.0 29.9 BP 128/72 H 111/74 Blood Pressure Location Lt brachial Rt brachial Position Sitting Sitting Respiration 17 18 Pulse 89 63 Pulse Source Monitor Monitor Temp 97.9 F 97.6 F L Temp Source Temporal Temporal Pulse Oximetry (%) 99 99 Oxygen Delivery Method room air room air Intake Visit Reasons: GALLBLADDER Chief Complaint: gallbladder Is patient in pain?: No Allergies venom-honey bee Allergy (Intermediate, Verified 12/13/24 14:29) Swelling Medications ???Medication ???Instructions ???Recorded ???Confirmed ???Type multivitamin 1 tab PO DAILY 06/24/21 12/13/24 History ferrous sulfate 325 mg (65 mg 325 mg PO DAILY #30 tabs 06/08/24 12/13/24 Rx iron) tablet (FeroSul) PFSH Medical History (Updated 12/13/24 @ 14:[address] Eric Mistry MD) Cholelithiasis RUQ abdominal pain Preventative health care Wears contact lenses Wears glasses Alcohol use Arthritis Non-smoker Health care maintenance Breast pain, right Diarrhea Anemia Breast lump Surgical History History of lumpectomy Family History Mother Anemia Colon cancerGrandmother Hypertension AnemiaGrandfather Parkinsons disease Social History number of children: 3 current occupational status: employed current occupation: [employer] Smoking Status: Never smoker alcohol intake: current alcohol intake frequency: a few times a week substance use type: does not use what type of physical activity do you participate in: walking frequency: daily seatbelt use: always do you feel safe at home: Yes HPI HPI HPI: Patient is a 39-year-old female here for cholelithiasis. She reports she does get periodic attacks which feel like sharp pain in the right upper quadrant that radiates to the back. That her last attack was 3 weeks ago. She denies nausea or vomiting or fevers or chills. ROS General General: Yes weight change; No appetite, fatigue, colon cancer, breast cancer or weakness HEENT HEENT: No difficulty swallowing, eye injury, eye surgery, swollen glands or hoarseness Endo Endocrine: No thyroid disease, diabetes mellitus, thyroid cancer, Hair loss, heat intolerance or cold intolerance Skin Skin: No rash or changing moles Musc Musculoskeletal: No back problems, arthritis, rheumatoid arthritis, gout or joint pain Cardio Cardiovascular: No murmur, pacemaker, heart disease, atrial fibrillation, high blood pressure, heart attack, heart stent, palpitations, shortness of breat with exertion or chest pain Psych Psychiatric: No depression, anxiety or hearing voices Gastro Gastrointestinal: Yes abdominal pain, No nausea or vomiting, No diarrhea, No constipation, No blood in stool, No acid reflux, No hemorrhoids, No ulcers, Yes gallbladder problem and No black,tarry stools Teja Hematologic: No blood thinners, No blood disorders, No bleeding, Yes anemia and No blood clots Neuro Neurologic: No numbness, No tingling and No weakness Exam Const General: cooperative Orientation: alert and oriented x3 HENMT Head: normal to inspection Neck Neck: normal visual inspection and full ROM Chest Chest palpation inspection: normal inspection of the chest Resp Effort Inspection: normal respiratory effort Auscultation: clear to auscultation bilaterally Cardio Rate: regular rate Rhythm: regular rhythm GI Inspection: non-distended Palpation: soft and nontender Skin General: no rashes or lesions noted Neuro General: patient alert and patient oriented x3 Extrem General: full ROM Psych Appearance: grossly normal Mental Status: mental status grossly normal Assessment and Plan Assessment and Plan (1) Cholelithiasis: Status: Acute Qualifiers: Cholelithiasis location: gallbladder Cholecystitis presence: without cholecystitis Biliary obstruction: without biliary obstruction Qualified Code(s): K80.20 - Calculus of gallbladder without cholecystitis without obstruction Plan: Patient is here due to cholelithiasis. She has been having right upper quadrant attacks which sound suspicious for biliary colic. The patient had an ultrasound which showed cholelithiasis. The patient has a lot of gallsto (more content not included)...[facility]01-27-2025 Evaluation note* Diagnosis Onset Date Resolution Status Admit Date RUQ abdominal pain chronic 2024 2:49pm Cholelithiasis acute December 132024 2:14pm Cholelithiasis acute January 08, 2025 10:39am Anemia chronic January 08 10:39am [facility] Work Phone: [phone]) 809-644608-23-2024 [facility] Medical Records Department [address] [place] [id number] History Physical Exam 06/30/24 0642 MR#: [id number] Acct: [id number] Name: MIDNY CERDA Rep #: [id number] : 1985 38 From: Jordan Friend DO PCP: Dr. Óscar Mobley MD Status:[facility] Location: [place] [address] History and Physical Date of Admission: 06/30/24 Chief Complaint: Anemia Details: MINDY CERDA, is a 38 F who presents to the office today for establishment with [facility]. She has a long history of having iron deficient anemia. 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 Her 62 yo mother was recently diagnosed with colon cancer and underwent partial colectomy and chemotherapy. She is concerned about developing colon cancer with her family history. She mentions she has always had right lower quadrant pain and feeling of incomplete evacuation with bowel movements. She has a bm at least once a day but feels it is incomplete. She has also noticed having some urgency after eating certain foods like sauce or foods with tomatoes. She has never been tested for food allergies. She has alot of gas that she will massage out her abdomen to relive. She feels fatigued and has brain fog. She denies alarm symptoms like weight loss, fever, or blood in her stool. She denies diarrhea, heartburn, and n/v. ROS Const Constitutional: Positive for fatigue and weight change; No fever(s) ENT ENT: No difficulty swallowing Gastro GI: Positive for abdominal pain, bloating, heartburn and excessive flatus; No belching, change in bowel habits, change in stool character, coffee ground emesis, constipation, cramping, diarrhea, difficulty swallowing, feeling full early, incontinent of stools, Vomiting blood/hematemesis, Blood in stool, loose stools, Black,tarry stools, nausea/dyspepsia, pain with swallowing, vomiting or other Musc Musculoskeletal: No joint pain Skin Skin: No yellowing of the eye or itchy eyes Psych Psychiatric: No anxiety and No depression Endo Endocrine: Positive for fatigue and weight change Aller/Imm Allergy/Immunologic: No itchy eyes Teja/Lymp Hematologic/Lymphatic: No easy bleeding or easy bruising Exam Const General: cooperative and comfortable Nutritional Appearance: average body habitus and well nourished [facility] Head: normal to inspection Ears: hearing grossly normal bilaterally Nose: external nose normal Face and sinus: normal facial exam Mouth: oral mucosae normal Throat: posterior oropharynx normal Eyes General: appearance normal, both eyes and all related structures Neck Neck: normal visual inspection Chest Chest palpation inspection: normal inspection of the chest and normal palpation of entire chest wall Resp Effort Inspection: normal respiratory effort Auscultation: Bilateral: Clear to Auscultation Cardio Palpation: normal PMI Rate: regular rate Rhythm: regular rhythm GI Inspection: normal to inspection Auscultation: normal bowel sounds Percussion: normal to percussion Palpation: no hepatosplenomegaly Skin General: no rashes or lesions noted Neuro General: patient alert Extrem General: normal to inspection Psych Affect: normal affect Assessment and Plan Assessment and Plan (1) Anemia: Status: Chronic Qualifiers: Anemia type: iron deficiency Iron deficiency anemia type: unspecified iron deficiency Qualified Code(s): D50.9 - Iron deficiency anemia, unspecified Plan: Patient is here today for establishment with [facility]. She has a hx of anemia, abdominal pain, and family hx of colon cancer -Because of family history of colon cancer she wishes to have a colonoscopy. We will schedule her for this. -Ordered iron studies to assess for anemia -Ordered labs for food allergens, celiac, and inflammatory markers -Recommended increasing daily fiber with supplement to help with incomplete stool evacuation -Recommended simethicone for episodes of gas Orders: Orders Ferritin Today D50.9 - Iron deficiency anemia, unspecified Iron Binding Capacity,Total Today D50.9 - Iron deficiency anemia, unspecified Iron Today D50.9 - Iron deficiency anemia, unspecified Celiac Disease Profile Today D50.9 - Iron deficiency anemia, unspecified CRP Today D50.9 - Iron deficiency anemia, unspecified Erythrocyte Sed Rate Today D50.9 - Iron deficiency anemia, unspecified Allergen, Food Profile 14 Today D50.9 - Iron deficiency anemia, unspecified Folates, (Folic Acid) Today D50.9 - Iron deficiency anemia, unspecified Vitamin B12 Today D50.9 - Iron deficiency anemia, unspecified Coding Level of Care Code New Pt Off vis,new,level 2 Patient Type New History Expanded Problem Focused Exam Expanded Problem Focused Medical Decision Making Straight Forward Diagnoses Iron deficiency anemia, unspecified iron deficiency anemia type D50.9 Anemia t (more content not included)...[facility] Harika Flores [facility] Note Date/Time January 22, 2025 2:0 6pm [facility] Medical Records Department [address] [place] [address] Anesthesia Postop Eval II 01/22/25 1225 MR#: [id number] Acct: [id number] Name: MINDY CERDA Rep #:[id number] : 1985 39 From: Harika Flores PCP: Dr. Óscar Mobley MD Status:R [facility]ORNER Y Race: C Location: [address] Anesthesia Postop Eval I Sum Postop Eval Completion status Anesthesia document: Postop Eval 1 completed: Yes Anesthesia Postop Eval I Summary Anesthesia Postop Eval I Summary: Anesthesia Postop Eval I: Assessment Summary Airway patent Yes 01/22/25 11:21 [employer]LEY[employer]ALL [email or web address] Spontaneous unlabored Yes 01/22/25 11:21 [employer]LEY[email or web address] respirations Mental status Asleep 01/22/25 11:21 [email or web address] nausea No 01/22/25 11:21 [email or web address] Vomiting No 01/22/25 11:21 [employer]LEY[employer]ALL [email or web address] Anesthesia Postop Eval I: Fluid Summary Crystalloid volume administer 800 01/22/25 11:21 [employer]LEYBALL [email or web address] (ml) Colloids volume administered ( ml) Blood Product volume administered (ml) Total IV fluid infused 800 01/22/25 11:21 [employer]LEYBALL [email or web address] Anesthesia Postop Eval I: Summary Notes Anesthesia Complication No 01/22/25 11:21 [email or web address] [email or web address] Anesthesia Complication Comment: Post-operative progress note Anesthesia: Postop Eval II Evaluation Mental status: Awake Pain Level: 3 nausea: No Vomiting: No 01/22/25 1225 <Electronically signed by Harika estrada> Date _ Harika Saenz Signature: Date CC: ~ Signed [facility] Work Phone: Evaluation noteNo assessment information available [facility] Work Phone: Evaluation note* Diagnosis Onset Date Resolution Status Diarrhea acute Health care maintenance acut e Anemia chronic Breast pain, right chronic [facility] Work Phone: Reason for referral (narrative)No reason for referral [facility] Work Phone: Summary Purpose Family History No Family History Records Found Relationship Condition Age at Onset Recorded Date/T neri mother Anemia Unknown grandmother Hypertension Unknown Anemia Unknown grandfather Parkinson's disease Unknown Relationship Condition Age at Onset Recorded Date/T neri mother Anemia Unknown Malignant neoplasm of colon Unknown grandmother Hypertension Unknown Anemia Unknown grandfather Parkinson's disease Unknown Advance Directives No Advanced Directives Records Found Advance Directive Response Recorded Date/ Time Living Will No August 11 7:43am Power of Automation Software Engineer No August 11 017 7:43am Advance Directive Response Recorded Date/ Time Living Will No August 11 7 6:43am Power of Automation Software Engineer No August 11 017 6:43am Advance Directive Response Recorded Date/ Time Living Will No June 28 8:29am Power of Automation Software Engineer No June 28 024 8:29am Living Will No January 04 025 12:05pm Power of Automation Software Engineer No January 04, 2025 12:05pm Chief Complaint and Reason for Visit Chief Complaint ROUTINE FOLLOW UP RT BREAST PAIN Reason for Visit Diarrhea Health care maintenance Anemia Breast pain, right Chief Complaint ROUTINE FOLLOW UP RT BREAST PAIN LUMP Reason for Visit Diarrhea Health care maintenance Anemia Breast pain, right Chief Complaint Admit Date E-ORDER December 04, 2024 1 2:07pm GALLBLADDER ISSUES, LAB FOLLOW UPS Janua 2024 2:49pm RUQ PAIN December 08, 2024 7 :25am GALLBLADDER December 13, 2024 2 :14pm 6 M FU January 08, 2025 10:3 9am PREOP January 10, 2025 12:0 4pm Robotic Cholecystectomy w/grams January 222024 8:19am Robotic Cholecystectomy w/grams January 222024 8:32am Reason for Visit Admit Date RUQ abdominal pain December 04, 2024 2 :49pm Cholelithiasis December 13, 2024 2 :14pm Cholelithiasis January 08, 2025 10:3 9am Anemia January 08, 2025 10:3 9am Additional Source Comments INFORMATION SOURCE (unrecogn ized section and content) DATE CREATED AUTHOR 09/28/2020 [facility] DATE CREATED AUTHOR AUTHOR'S ORGANIZ ATION 02/10/2025 [facility] Goals (unrecognized section and content) Goals may be documented in a n alternate sectionGoals may be documented in an alternate sectionGoals may be documented in an alternate section Care Teams (unrecognized sec tion and content) Team Status: Active Member Role Status Dates Dr. Óscar Mobley MD Family Provider Active Dr. Óscar Mobley MD Primary Care Provider Active Team Status: Inactive Member Role Status Dates Dr. Óscar Mobley MD Primary Care P felipe, Attending Provider, Referring Provider Active Team Status: Inactive Member Role Status Dates Dr. Óscar Mobley MD Primary Care Provider, Atten ding Provider Active Team Status: Active Member Role Status Dates Dr. Óscar Mobley MD Primary Care Provider Active Team Status: Inactive Member Role Status Dates Dr. Óscar Mobley MD Primary Care Provider Active Start: December 04, 2024 End: December 04, 2024 IRVIN Fischer Attending Provider Active Start: December 04, 2024 End: December 04, 2024 IRVIN Fischer Referring Provider Active Start: December 04, 2024 End: December 04, 2024 Team Status: Inactive Member Role Status Dates Dr. Óscar Mobley MD Primary Care Provider Active Start: December 04, 2024 End: December 04, 2024 Dr. Óscar Mobley MD Attending Provider Active Start: December 04, 2024 End: December 04, 2024 Dr. Óscar Mobley MD Referring Provider Active Start: December 04, 2024 End: December 04, 2024 Team Status: Inactive Member Role Status Dates Dr. Óscar Mobley MD Primary Care Provider Active Start: December 08, 2024 End: December 08, 2024 Dr. Óscar Mobley MD Attending Provider Active Start: December 08, 2024 End: December 08, 2024 Dr. Óscar Mobley MD Referring Provider Active Start: December 08, 2024 End: December 08, 2024 Team Status: Inactive Member Role Status Dates Dr. Óscar Mobley MD Primary Care Provider Active Start: December 13, 2024 End: December 13, 2024 Dr. Óscar Mobley MD Referring Provider Active Start: December 13, 2024 End: December 13, 2024 Dr. Eric Mistry MD Attending Provider Active Start: December 13, 2024 End: December 13, 2024 Team Status: Inactive Member Role Status Dates Dr. Óscar Mobley MD Primary Care Provider Active Start: January 08, 2025 End: January 08, 2025 Dr. Óscar Mobley MD Attending Provider Active Start: January 08, 2025 End: January 08, 2025 Dr. Óscar Mobley MD Referring Provider Active Start: January 08, 2025 End: January 08, 2025 Team Status: Active Member Role Status Dates Dr. Óscar Mobley MD Primary Care Provider Active Start: January 10, 2025 End: January 10, 2025 Dr. Wilian Salguero MD Attending Provider Active Start: January 10, 2025 End: January 10, 2025 Dr. Yash Looney MD Referring Provider Active Start: January 10, 2025 End: January 10, 2025 Team Status: Inactive Member Role Status Dates Dr. Óscar Mobley MD Primary Care Provider Active Start: January 22, 2025 End: January 22, 2025 Dr. Eric Mistry MD Attending Provider Active Start: January 22, 2025 End: January 22, 2025 Dr. Eric Mistry MD Referring Provider Active Start: January 22, 2025 End: January 22, 2025 Team Status: Active Member Role Status Dates Dr. Óscar Mobley MD Primary Care Provider Active Start: January 22, 2025 Dr. Eric Mistry MD Attending Provider Active Start: January 22, 2025 Dr. Eric Mistry MD Referring Provider Active Start: January 22, 2025 Dr. Eric Mistry MD Other Provider Active Start: January 22, 2025 FOR RECORDS PERTAINING TO PATIENTS WHO ARE OR HAVE BEEN ENROLLED IN A CHEMICAL DEPENDENCY/SUBSTANCEABUSE PROGRAM, SOME INFORMATION MAY BE OMITTED. This clinical summary was aggregated from multiple sources. Caution should be exercised in using it in the provision of clinical care. This summary normalizes information from multiple sources, and as a consequence, information in this document may materially change the coding, format and clinical context of patient data. In addition, data may be omitted in some cases. CLINICAL DECISIONS SHOULD BE BASED ON THE PRIMARY CLINICAL RECORDS. [employer] provides no warranty or guarantee of the accuracy or completeness of information in this document.
[2025-06-09 00:37] LABS: Hematocrit 31.1 % (37-47); Hemoglobin 10.6 g/dL (12.0-15.0); Immature Granulocytes Count 0.050 X10^3/uL (0.0-0.0); Mean Corp Hgb Conc 34.1 g/dL (32-36); Mean Corpuscular Volume 87.4 fL (81-99); Mean Platelet Vol. 10.8 fl (6.2-12.0); NRBC Flagged by Analyzer 0 % (0-5); Platelet Count 273 K/mm3 (150-450); RBC Distribution Width CV 13.3 % (11.6-14.6); RBC Distribution Width SD 42.1 fl (35.1-43.9); Red Blood Count 3.56 M/mm3 (4.2-5.4); White Blood Count 10.6 K/mm3 (4.4-11.0)
[2025-06-09 00:48] LABS: Internal QC Validated? YES +Cl - CLEAR BKGD; Pregnancy, Serum, hCG Quali. NEGATIVE Negative; Record Kit Lot#, Serum Preg. 0000962302
[2025-06-09 00:58] LABS: Anion Gap 9 (5-15); BUN 12 mg/dL (4-19); BUN/Creat Ratio 20.6 RATIO (10-20); Calcium,Total 8.9 mg/dL (7.6-11.0); Carbon Dioxide 22.4 mmol/L (21.0-32.0); Chloride 105 mmol/L (98-108); Estimated Creatinine Clearance 134.30 ml/min (50-250); Glucose 96 mg/dL (70-99); Potassium 3.7 mmol/L (3.3-5.1)
[2025-06-09 01:16] VITALS: BP 121/73; PULSE 75; RESP 18; O2SAT 100
--- NOTE | 2025-06-09 02:13 | ED.VIS.FEGU ---
HPI HPI - Female History of Present Illness Chief Complaint: Vag Bleeding Narrative Narrative: Presenting with vaginal bleeding for the last 4 days heavy clots. She states she was 2 weeks late on her period. She had intercourse with her spouse and was concerned her this past Wednesday 9 days ago the following day she took a Plan B. Started having bleeding 4 days later. She is not on any blood thinners. She called her OB Dr. Mathews. Was told to monitor and worsens to be evaluated. She has history anemia she is concerned of blood loss. She took 2 home test that were negative. Prior similar symptoms: No PFSH PFSH Medical History Cholelithiasis RUQ abdominal pain Preventative health care Wears contact lenses Wears glasses Alcohol use Arthritis Non-smoker Health care maintenance Breast pain, right Diarrhea Anemia Breast lump Home Medications ?Medication ?Instructions ?Recorded ?Last Taken ?Type multivitamin 1 tab PO DAILY 06/24/21 01/21/25 History ferrous sulfate 325 mg (65 mg 325 mg PO DAILY #30 tabs 06/08/24 01/21/25 Rx iron) tablet (FeroSul) Allergy/AdvReac Type Severity Reaction Status Date / Time venom-honey bee Allergy Intermediate Swelling Verified 06/08/25 23:17 Family History Mother Anemia Colon cancer Grandmother Hypertension Anemia Grandfather Parkinsons disease Surgical History S/P cholecystectomy History of colonoscopy with polypectomy History of lumpectomy Social History number of children: 3 current occupational status: employed current occupation: [employer] Smoking Status: Never smoker alcohol intake: current alcohol intake frequency: a few times a week substance use type: does not use what type of physical activity do you participate in: walking frequency: daily seatbelt use: always do you feel safe at home: Yes ROS ROS ED Constitutional Constitutional ED: Denies fever(s) Cardiovascular Cardiovascular: Denies chest pain Respiratory/Chest Respiratory/Chest: Denies cough Gastrointestinal Gastrointestinal: Denies diarrhea or vomiting Genitourinary Genitourinary ED: Reports other Details: Vaginal bleeding Musculoskeletal Musculoskeletal: Denies none Integumentary Denies rash or wounds Neurologic Neurologic: Denies weakness EXAM Physical Exam Const Vital Signs: 06/08/25 23:16 06/09/25 01:16 06/09/25 02:21 Temperature 98.6 F 98.1 F Temperature Source Oral Pulse Rate 81 75 69 Respiratory Rate 18 18 16 Blood Pressure 150/82 H 121/73 H 115/70 Blood Pressure Mean 104 89 85 Pulse Ox 99 100 99 Oxygen Delivery Method Room Air Room Air Positive well nourished and well developed General Appearance ED: well developed HEENT normocephalic and atraumatic Eyes General Eye ED: Yes normal appearance of both eyes; Negative for pale conjunctiva Neck full ROM Resp normal respiratory effort and normal air movement Cardio regular rate and regular rhythm GI soft to palpation GI Narrative: No guarding or rebound. Extremity normal to inspection and full ROM Neuro oriented x3 Skin no rashes or lesions noted and no wounds MDM MDM MDM Narrative Medical decision making narrative: Interventions / MDM: Differential diagnosis: Dysfunctional uterine bleeding, anemia Diagnosis considered but do not suspect: N/A My EKG interpretation: N/A Imaging independently reviewed and interpreted by myself: N/A External documents reviewed: Hemoglobin November 2024 was 12.8 however previous hemoglobin for the past year prior to that was in the 10 range. Test considered but not ordered:N/A ED course: Patient nontoxic nonsurgical abdomen. Vital stable. Laboratory studies checked, hCG sent. Hemoglobin 10.6. hCG was negative. Reassured on findings. Discussed dysfunctional uterine bleeding possibly from taking her Plan B. At this time no ultrasound available in edition no urgency for this tonight. Reassured on findings. Discussed considered Aygestin with her however she would like to monitor and discuss with her veneer splicer. Discharged outpatient follow-up. All questions were answered. Re-evaluation: stable Disposition discussed with patient/family/significant other: Patient Case discussed with consulting clinician: N/A This note was generated with [employer] dictation software. It may contain incorrect words, spelling, and punctuation that were not noted in checking the note before signing. Lab Data Attestation: I reviewed the patient's lab results. Labs: Laboratory Results - last 24 hr 06/08/25 23:50 WBC 10.6 RBC 3.56 L Hgb 10.6 L Hct 31.1 L MCV 87.4 MCH 29.8 MCHC 34.1 RDW Std Deviation 42.1 RDW Coeff of Daiana 13.3 Plt Count 273 MPV 10.8 Immature Gran % (Auto) 0.500 Neut % (Auto) 65.5 Lymph % (Auto) 20.7 [place] % (Auto) 8.9 Eos % (Auto) 3.6 Baso % (Auto) 0.8 Absolute Neuts (auto) 7.0 Absolute Lymphs (auto) 2.20 Nucleated RBC % 0 Sodium 136 Potassium 3.7 Chloride 105 Carbon Dioxide 22.4 Anion Gap 9 BUN 12 Creatinine 0.56 L Estim Creat Clear Calc 134.30 Est GFR (MDRD) Non-Af 121 BUN/Creatinine Ratio 20.6 H Glucose 96 Calcium 8.9 Serum , Qual NEGATIVE Discharge Plan Triage Chief Complaint: Vag Bleeding ED Provider: Tavo Salazar Dx/Rx/DC Orders Clinical Impression: Bleeding, uterine, dysfunctional, Anemia Instructions: Anemia, ED Dysfunctional Uterine Bleeding Prescriptions: No Action multivitamin Tablet 1 tab PO DAILY ferrous sulfate [FeroSul] 325 mg (65 mg iron) tablet 325 mg PO DAILY Qty: 30 0RF Primary Care Provider: Óscar Mobley Referrals: Óscar Mobley MD [Primary Care Provider] - Activity Restrictions/Additional Instructions: Your hemoglobin 10.6. Your hCG negative. Monitor bleeding. Discussed with Dr. Pascual, considered Aygestin with you. You can talk to her about this treatment if you continue to bleed. Print Language: Slovenian Disposition Disposition: Home, Self Care Discharge Date/Time: 06/09/25 02:21
[2025-06-09 02:21] VITALS: BP 115/70; PULSE 69; RESP 16; TEMP 36.7; O2SAT 99
== END 2025-06-09 02:21 | disposition home or self-care (01) ==
PROVIDERS: Emergency Provider Emergency Medicine; PCP Internal Medicine; Visit Provider Emergency Medicine
DX: N93.9 Abnormal uterine and vaginal bleeding, unspecified (principal); D64.9 Anemia, unspecified; Z90.49 Acquired absence of other specified parts of digestive tract
CPT/HCPCS: 80048; 84703; 85025; 99283; A4216